=== PATIENT | female | born 1940 | race Caucasian/White ===

== ENCOUNTER → 2016-04-28 | Outpatient (CLI) | payer MEDICARE, OTHER ==
[2016-04-28 10:03] LABS: Basophils % (A) 1 %; CHCM 33.3; Eosinophils % (A) 1 %; HCT 41.7 % (34.0-46.0); HDW 2.35; Luc # (Auto) 0.12; Luc % (Auto) 3; Lymphocytes # (A) 1.4 k/uL (1.0-4.8); Lymphocytes % (A) 33 %; MCH 32.6 pg (25.0-35.0); MCHC 33.7 g/dL (31.0-37.0); MCV 96.6 fL (80.0-100.0); Mean Platelet Volume 7.2; Monocytes # (A) 0.3 k/uL (0-1.0); Monocytes % (A) 8 %; Neutrophils # (A) 2.3 k/uL (1.3-7.7); Neutrophils % (A) 55 %; RBC 4.31 m/uL (3.80-5.40); RDW 13.4 % (11.5-15.5); WBC 4.2 k/uL (3.8-10.6); WBC (Perox) 4.51
[2016-04-28 10:05] LABS: Appearance,Urine Clear (Clear); Bilirubin,Urine Negative (Negative); Glucose,Urine (UA) Negative (Negative); Ketones,Urine Negative (Negative); Leukocyte Esterase,Urine Negative (Negative); Nitrite,Urine Negative (Negative); Protein,Urine Negative (Negative); Specific Gravity,Urine 1.005 (1.001-1.035); UA Billing (MACRO vs. MICRO) CHEM; Urobilinogen,Urine <2.0 mg/dL (<2.0)
[2016-04-28 10:15] LABS: INR 1.1 (<1.1); Partial Thromboplastin Time 24.8 sec (22.0-30.0); Prothrombin Time 10.7 sec (9.0-12.0)
[2016-04-28 10:31] LABS: Anion Gap 11 mmol/L; Blood Urea Nitrogen 15 mg/dL (7-17); Calcium 9.6 mg/dL (8.4-10.2); Carbon Dioxide 25 mmol/L (22-30); Chloride 106 mmol/L (98-107); Glucose 81 mg/dL (74-99); Non-African American GFR(MDRD) >60 (>60 ml/min/1.73 sqM); Potassium 4.1 mmol/L (3.5-5.1); Sodium 142 mmol/L (137-145)
[2016-04-28 11:55] LABS: Hemoglobin A1C 5.1 % (4.2-6.1)
== END ==
LOC: LABWHC1 09:28
PROVIDERS: ATTEND Orthopaedic Surgery
DX: D61.3 Idiopathic aplastic anemia (principal); N39.0 Urinary tract infection, site not specified; E10.9 Type 1 diabetes mellitus without complications; Z51.81 Encounter for therapeutic drug level monitoring; Z79.01 Long term (current) use of anticoagulants
CPT/HCPCS: 36415; 80048; 81003; 83036; 85025; 85610; 85730; 87086

== ENCOUNTER → 2017-12-02 | Outpatient (CLI) | payer MEDICARE, OTHER ==
[2017-12-02 17:53] LABS: Basophils % (A) 1 %; Eosinophils % (A) 1 %; HCT 42.9 % (34.0-46.0); HGB 13.7 gm/dL (11.4-16.0); Lymphocytes # (A) 1.6 k/uL (1.0-4.8); Lymphocytes % (A) 28 %; MCH 30.3 pg (25.0-35.0); MCHC 31.9 g/dL (31.0-37.0); MCV 95.1 fL (80.0-100.0); Mean Platelet Volume 7.3; Monocytes # (A) 0.4 k/uL (0-1.0); Monocytes % (A) 7 %; Neutrophils # (A) 3.6 k/uL (1.3-7.7); Neutrophils % (A) 62 %; Platelet Count 250 k/uL (150-450); RBC 4.51 m/uL (3.80-5.40); RDW 13.3 % (11.5-15.5); WBC 5.8 k/uL (3.8-10.6)
== END ==
LOC: LABWHC1 16:05
PROVIDERS: ATTEND Internal Medicine Critical Care Medicine
DX: J45.909 Unspecified asthma, uncomplicated (principal)
CPT/HCPCS: 36415; 82785; 85025

== ENCOUNTER 2018-12-02 07:38 | Day surgery (SDC) | payer MEDICARE ==
[2018-12-01 09:38] VITALS: BMI 29.5
[~2018-12-02 07:38] MED LIST: LACTATED RINGERS 1,000 ML IV SCH; LIDOCAINE 1% 20 ML VIAL (10MG/ML) FOR IV START INTRADERMA PRN
[2018-12-02 08:11] VITALS: RESP 16; TEMP 98.4
[2018-12-02] MEDS ORDERED: PROPOFOL 10 MG/ML 20 ML VIAL IV ONE (09:04)
--- NOTE | 2018-12-02 09:28 | P.PCN ---
Date of Procedure: 12/02/18 Procedure(s) Performed: BRIEF HISTORY: Patient is a 78-year-old pleasant white female scheduled for an elective colonoscopy as a part of evaluation of chronic diarrhea for the last 3 weeks' duration. She was diagnosed with colon cancer in February 2015 and is status post left hemicolectomy by Dr. Rousseau. PROCEDURE PERFORMED: Colonoscopy with biopsy and tattooing with Jackie ink PREOPERATIVE DIAGNOSIS: Chronic diarrhea and history of colon cancer diagnosed in February 2015 status post left hemicolectomy. IV sedation per Anesthesia. PROCEDURE: After informed consent was obtained, the patient, was brought into the endoscopy unit. IV sedation was administered by Anesthesia under continuous monitoring. Digital rectal examination was normal. Initially the Olympus CF-160 flexible video colonoscope was then inserted in the rectum, gradually advanced into the cecum without any difficulty. Careful examination was performed as the scope was gradually being withdrawn. Ileocecal valve and the appendiceal orifice were visualized and appeared normal. Prep was excellent. Mucosa of the cecum appeared normal. The descending colon there was a ulcerated slightly raised 3 cm polypoid lesion suspicious for neoplasm and multiple biopsies were done from this area. Tattooing was performed with Jackie ink at the distal margin of the polypoid lesion. Rest of the, ascending colon, transverse colon, descending colon, sigmoid colon, and rectum appeared normal. Retroflexion was performed in the rectum and no lesions were seen. The patient tolerated the procedure well. IMPRESSION: 3 cm ulcerated slightly raised polypoid lesion in the mid ascending colon, suspicious for neoplasm status post biopsy and tattooing with Jackie ink Rest of the colon appeared normal. RECOMMENDATIONS: Findings of this examination were discussed with the patientas well as a family. She was advised to follow with the biopsy results and she'll be seen in office next week. She will be scheduled for a CT of abdomen and pelvis.
[2018-12-02 09:45] VITALS: BP 141/59; PULSE 60
== END 2018-12-02 10:42 | disposition home or self-care (01) ==
LOC: ORWHC2ENDO 07:38
PROVIDERS: ATTEND Internal Medicine Gastroenterology
DX: C18.2 Malignant neoplasm of ascending colon (principal); Z90.49 Acquired absence of other specified parts of digestive tract; I10 Essential (primary) hypertension; E78.5 Hyperlipidemia, unspecified; J45.909 Unspecified asthma, uncomplicated; H35.30 Unspecified macular degeneration; K21.9 Gastro-esophageal reflux disease without esophagitis; Z79.899 Other long term (current) drug therapy; Z79.51 Long term (current) use of inhaled steroids; Z79.83 Long term (current) use of bisphosphonates; Z88.6 Allergy status to analgesic agent; Z88.5 Allergy status to narcotic agent
CPT/HCPCS: 88305; 45380; 45381; J2704

== ENCOUNTER → 2018-12-05 | Outpatient (CLI) | payer MEDICARE ==
[2018-12-05 07:58] LABS: ALT 23 U/L (9-52); AST 27 U/L (14-36); African American GFR (CKD) >90 (>60 ml/min/1.73 sqM); Alkaline Phosphatase 53 U/L (38-126); Anion Gap 6 mmol/L; Blood Urea Nitrogen 12 mg/dL (7-17); Calcium 9.1 mg/dL (8.4-10.2); Carbon Dioxide 28 mmol/L (22-30); Chloride 108 mmol/L (98-107); Glucose 90 mg/dL (74-99); Sodium 142 mmol/L (137-145); Total Bilirubin 0.5 mg/dL (0.2-1.3); Total Protein 6.8 g/dL (6.3-8.2)
[2018-12-05 08:05] LABS: Potassium 3.5 mmol/L (3.5-5.1)
--- NOTE | 2018-12-05 10:29 | CT ---
EXAMINATION TYPE: CT abdomen pelvis w con DATE OF EXAM: 12/05/2018 COMPARISON: None INDICATION: Mass in ascending colon, history of colon cancer DLP: 1376 mGycm, Automated exposure control for dose reduction was used. CONTRAST: 100 mL of Isovue 300. Study performed with Oral Contrast TECHNIQUE: Axial images were obtained from above the diaphragm to the pubic rami in the axial plane a t 5 mm thick sections. Reconstructed images are reviewed on the computer in the coronal plane. FINDINGS: Limited CT sections are obtained the lung bases. The lung bases are clear. Small amount coronary ar ryann calcification is present. CT ABDOMEN: There is a large anterior abdominal wall hernia containing multiple loops of bowel. This includes both small bowel and colon. No dilated loops of bowel are evident to suggest obstruction. Th is is a very wide opening within the anterior upper pelvis. A second smaller hernia is into the anter ior right pelvis. Liver: Normal Spleen: Normal Pancreas: Normal Adrenal glands: The adrenal glands are normal. Gallbladder: Normal Kidneys: No masses are evident. No hydronephrosis is present. No cysts are present. Delayed images were obtained through the kidneys, which remain unremarkable. Aorta: Vascular calcification is within the aorta. Inferior vena cava: Normal. CT PELVIS: Filling defect at the level of the cecum is not excluded. Some thickening through the distal ascendin g colon near the level of hepatic flexure may also be present. The Patient's ascending colon mass is not discretely identified. Fecal debris is present as well. Ileocecal valve is within the hernia. The re is a large fecal bolus at the level of the proximal cecum. Appendix: There appears to be the appendix is Normal as visualized. Urinary bladder: Distended. Genitourinary structures: Uterus and ovaries are not identified. No suspicious masses or free fluid a re evident. Osseous structures: No suspicious lytic or sclerotic lesions. Scoliosis IMPRESSIONS: 1. Fecal debris makes identification of the patient's ascending colon cancer difficult. Proximal and distal ascending colon filling defects are present which could correspond to a potential neoplasm. N o suspicious metastatic disease or abnormal adenopathy is evident. 2. Very large anterior abdominal wall hernia containing multiple loops of colon and small bowel.
== END ==
LOC: RADCTMAIN 07:19
PROVIDERS: ATTEND Internal Medicine Gastroenterology
DX: K80.20 Calculus of gallbladder without cholecystitis without obstruction (principal); K43.9 Ventral hernia without obstruction or gangrene; R93.3 Abnormal findings on diagnostic imaging of other parts of digestive tract
CPT/HCPCS: 80053; 74177; Q9967 ×2

== ENCOUNTER → 2019-01-27 | Outpatient (CLI) | payer MEDICARE ==
[2019-01-27 11:06] LABS: African American GFR (CKD) >90 (>60 ml/min/1.73 sqM); Anion Gap 5 mmol/L; Blood Urea Nitrogen 17 mg/dL (7-17); Calcium 9.3 mg/dL (8.4-10.2); Carbon Dioxide 30 mmol/L (22-30); Chloride 106 mmol/L (98-107); Glucose 87 mg/dL (74-99); Non-African American GFR(CKD) 83 (>60 ml/min/1.73 sqM); Potassium 4.1 mmol/L (3.5-5.1); Sodium 141 mmol/L (137-145)
--- NOTE | 2019-01-27 11:56 | CT ---
EXAMINATION TYPE: CT chest w con DATE OF EXAM: 01/27/2019 COMPARISON: NONE HISTORY: Colon cancer newly diagnosed. CT DLP: 277.00 mGycm. Automated Exposure Control for Dose Reduction was Utilized. TECHNIQUE: CT scan of the thorax is performed following with IV Contrast, patient injected with 100 ml mL of Isovue 300. FINDINGS: LUNGS: Background mild underlying emphysematous change. No suspicious nodules or masses. No pleural e ffusion or pneumothorax. No acute infiltrate or consolidation. MEDIASTINUM: There are no suspicious greater than 1 cm noncalcified hilar or mediastinal lymph nodes. Prominent but calcified right hilar and subcarinal lymph nodes are seen. No pericardial effusion is seen. Heart size upper limits of normal. Mild calcified plaque of aorta. OTHER: S-shaped scoliosis. Olaz-ia-eafrgyru multilevel spurring of the spine. Surgical changes left h umeral head is noted. IMPRESSION: No suspicious pulmonary nodules or masses to suggest metastatic disease.
== END ==
LOC: RADCTMAIN 10:02
PROVIDERS: ATTEND Colon & Rectal Surgery
DX: C18.9 Malignant neoplasm of colon, unspecified (principal)
CPT/HCPCS: 80048; 71260; 36415; Q9967

== ENCOUNTER 2024-02-02 20:01 | Observation (INO) | payer MEDICARE ==
--- NOTE | 2024-02-02 21:44 | ED ---
General Adult HPI - General Chief complaint: Arrhythmia/Palpitations Stated complaint: CIPRIANO Time Seen by Provider: 02/02/24 21:24 Source: patient Mode of arrival: ambulatory Limitations: no limitations - History of Present Illness Initial comments: Dictation was produced using [employer] dictation software. please excuse any grammatical, word or spelling errors. Chief Complaint: 83-year-old female with palpitations History of Present Illness: Patient is 83-year-old female every day she checks her heart rate and pulse oximeter with the device. Since around Thanksgiving time she has noticed that her heart rate would bounce anywhere from 23-1 40. Patient has a history of A-fib takes beta-mali along with anticoagulation medications. She was checking her heart rate today and states that it she had readings in the 30s although up to 140s. She denies any symptoms. She saw one of her outpatient doctors who increase her metoprolol dose to 25 mg 3 times daily. Patient denies any chest pain. Denies any lightheadedness. She does not have a pacemaker AICD The ROS documented in this emergency department record has been reviewed and confirmed by me. Those systems with pertinent positive or negative responses have been documented in the HPI. All other systems are other negative and/or noncontributory. - Related Data Home Medications Medication Instructions Recorded Confirmed Ascorbic Acid [Vitamin C] 500 mg PO TID 03/20/15 12/02/18 Citalopram Hydrobromide 20 mg PO DAILY 03/20/15 12/02/18 [Citalopram HBr] Fluticasone Propion/Salmeterol 1 puff INHALATION BID 03/20/15 12/02/18 [Advair 500-50 Diskus] Ipratropium-Albuterol Nebulize 3 ml INHALATION Q4-6H PRN 03/20/15 12/02/18 [Duoneb 0.5 mg-3 mg/3 ml Soln] Ipratropium/Albuterol Sulfate 1 - 2 puff INHALATION QID PRN 03/20/15 12/02/18 [Combivent Respimat Inhaler] Losartan Potassium 50 mg PO DAILY 03/20/15 12/02/18 Metoprolol Tartrate 12.5 mg PO DAILY 03/20/15 12/02/18 Montelukast [Singulair] 10 mg PO HS 03/20/15 12/02/18 Omeprazole [PriLOSEC] 20 mg PO AC-BRKFST 03/20/15 12/02/18 Theophylline 12 Hour [Laureano-Dur] 400 mg PO DAILY 03/20/15 12/02/18 Vitamin E (Dl,Tocopheryl Acet) 400 unit PO Q48H 03/20/15 12/02/18 [Vitamin E] Alendronate Sodium [Fosamax] 70 mg PO TH 12/01/18 12/02/18 Azelastine HCl [Astepro] 2 spray NASAL BID 12/01/18 12/02/18 Biotin [Biotin Disolve] 5,000 mcg PO DAILY 12/01/18 12/02/18 Cholecalciferol [Vitamin D3 (25 5,000 unit PO DAILY 12/01/18 12/02/18 Mcg = 1000 Iu)] Levocetirizine Dihydrochloride 5 mg PO DAILY 12/01/18 12/02/18 [Xyzal] cycloSPORINE [Restasis] 1 applicator BOTH EYES BID 12/01/18 12/02/18 Allergies Allergy/AdvReac Type Severity Reaction Status Date / Time aspirin Allergy "BRINGS ON Verified 02/02/24 20:14 ASTHMA ATTACKS" milk Allergy "BLOCKS Verified 02/02/24 20:14 BOWEL" wheat Allergy Cough Verified 02/02/24 20:14 Review of Systems ROS Statement: Those systems with pertinent positive or pertinent negative responses have been documented in the HPI. ROS Other: All systems not noted in ROS Statement are negative. Past Medical History Past Medical History: Asthma, Cancer, COPD, Eye Disorder, GERD/Reflux, Hyperlipidemia, Hypertension Additional Past Medical History / Comment(s): ARRYTHMIA. macular degeneration rt eye SKIN CA ON BACK. colon polyp-cancer, gallstones, hernia History of Any Multi-Drug Resistant Organisms: MRSA Date of last positivie culture/infection: abdominal incision MDRO Source:: 2016 Past Surgical History: Bladder Surgery, Bowel Resection, Hysterectomy, Joint Replacement Additional Past Surgical History / Comment(s): TOTAL JESSE KNEE. LT GREAT TOE. SINUS SURG. EXC CATARACTS, LT arm surgery repair bicep. Past Anesthesia/Blood Transfusion Reactions: Motion Sickness Past Psychological History: Depression Smoking Status: Never smoker Past Alcohol Use History: Rare Past Drug Use History: None Reported - Past Family History Brother(s) Family Medical History: Cancer Mother Sister(s) Family Medical History: Cancer Sister(s) Family Medical History: Deep Vein Thrombosis (DVT) General Exam - General Exam Comments Initial Comments: PHYSICAL EXAM: General Impression: Alert and oriented x3, not in acute distress HEENT: Normocephalic atraumatic, extra-ocular movements intact, pupils equal and reactive to light bilaterally, mucous membranes moist. Cardiovascular: Tachycardic, irregular Chest: Able to complete full sentences, no retractions, no tachypnea Abdomen: abdomen soft, non-tender, non-distended, no organomegaly Musculoskeletal: Pulses present and equal in all extremities, no peripheral edema Motor: no focal deficits noted Neurological: CN II-XII grossly intact, no focal motor or sensory deficits noted Skin: Intact with no visualized rashes Psych: Normal affect and mood Limitations: no limitations Course Vital Signs 02/02/24 20:09 Temperature 98.5 F Pulse Rate 128 H Respiratory 18 Rate Blood Pressure 140/81 O2 Sat by Pulse 96 Oximetry EKG Findings - EKG Comments: EKG Findings:: My EKG interpretation: Ventricular rate 111, a flutter, QRS 84, QTc 391. No QTC prolongation, no ST or T-wave changes noted. Overall, this EKG is unremarkable Medical Decision Making - Medical Decision Making Was pt. sent in by a medical professional or institution ([facility], [facility], urgent care, hospital, or fci...) When possible be specific @ -No Did you speak to anyone other than the patient for history (EMS, parent, family, police, friend...)? What history was obtained from this source @ -No Did you review nursing and triage notes (agree or disagree)? Why? @ -I reviewed and agree with nursing and triage notes Were old charts reviewed (outside hosp., previous admission, EMS record, old EKG, old radiological studies, urgent care reports/EKG's, fci records)? Report findings @ -No old charts were reviewed Differential Diagnosis (chest pain, altered mental status, abdominal pain women, abdominal pain men, vaginal bleeding, musculoskeletal, weakness, fever, dyspnea, syncope, headache, dizziness, GI bleed, back pain, seizure, CVA, palpatations, mental health)? @ -Differential Chest Pain: Stable Angina, Unstable Angina, STEMI, NSTEMI Aortic Dissection, Pneumothorax, Musculoskeletal, Esophageal Spasm GERD, Cholecystitis, Pancreatitis, Zoster, this is not meant to be an all-inclusive list. EKG interpreted by me (3pts min.). @ -See above X-rays interpreted by me (1pt min.). @ -Chest x-ray is nonacute CT interpreted by me (1pt min.). @ -None done U/S interpreted by me (1pt. min.). @ -None done What testing was considered but not performed or refused? (CT, X-rays, U/S, labs)? Why? @ -None What meds were considered but not given or refused? Why? @ -None Was smoking cessation discussed for >3mins.? @ -No Were there social determinants of health that impacted care today? How? (Homelessness, low income, unemployed, alcoholism, drug addiction, transportation, low edu. Level, literacy, decrease access to med. care, correction, rehab)? @ -No Was there de-escalation of care discussed even if they declined (Discuss DNR or withdrawal of care, Hospice)? DNR status @ -No What co-morbidities impacted this encounter? (DM, HTN, Smoking, COPD, CAD, Cancer, CVA, ARF, Chemo, Hep., AIDS, mental health diagnosis, sleep apnea, morbid obesity)? @ -None Was patient admitted / discharged? Hospital course, mention meds given and route, prescriptions, significant lab abnormalities, going to OR and other pertinent info. @ -83-year-old female presents to the emergency department for palpitations. She also has secondary complaint of chest pain. Vital signs upon arrival shows slight A-fib with RVR. Rest of vital signs within acceptable limits. Laboratory evaluation obtained. Labs are within acceptable limits. Troponin is negative. EKG shows no signs of ischemia infarction. Patient complained of atypical chest pain typical features. Patient been aspirin will be admitted to observation with consultation to cardiology. Case discussed with hospitalist for admission Did you discuss the management of the patient with other professionals (professionals i.e. , PA, CIVIL DRAFTER, lab, RT, psych nurse, social and political studies professor, biofuels operations manager, teacher, senior grants officer, block and case maker)? Give summary @ -See above Was critical care preformed (if so, how long)? @ -No Undiagnosed new problem with uncertain prognosis? @ -No Drug Therapy requiring intensive monitoring for toxicity (Heparin, Nitro, Insulin, Cardizem)? @ -No Were any procedures done? @ -No Diagnosis/symptom? Acute, or Chronic, or Acute on Chronic? Uncomplicated (without systemic symptoms) or Complicated (systemic symptoms)? @ -Chest pain Side effects of treatment? @ -No Exacerbation, Progression, or Severe Exacerbation? @ -No Poses a threat to life or bodily function? How? (Chest pain, [place], NM, pneumonia, PE, COPD, DKA, ARF, appy, cholecystitis, CVA, Diverticulitis, Homicidal, Suicidal, threat to staff... and all critical care pts) @ -yes - Lab Data Result diagrams: 02/02/24 21:55 02/02/24 21:55 Lab Results 02/02/24 02/02/24 02/02/24 Range/Units 21:55 21:55 21:55 WBC 5.3 (3.8-10.6) k/uL RBC 4.28 (3.80-5.40) m/uL Hgb 13.5 (11.4-16.0) gm/dL Hct 41.5 (34.0-46.0) % MCV 97.0 (80.0-100.0) fL MCH 31.6 (25.0-35.0) pg MCHC 32.6 (31.0-37.0) g/dL RDW 13.4 (11.5-15.5) % Plt Count 271 (150-450) k/uL MPV 6.9 Neutrophils % 58 % Lymphocytes % 31 % Monocytes % 7 % Eosinophils % 1 % Basophils % 0 % Neutrophils # 3.1 (1.3-7.7) k/uL Lymphocytes # 1.6 (1.0-4.8) k/uL Monocytes # 0.4 (0-1.0) k/uL Eosinophils # 0.0 (0-0.7) k/uL Basophils # 0.0 (0-0.2) k/uL PT 11.4 (10.0-12.5) sec INR 1.0 (<1.2) APTT 24.2 (22.0-30.0) sec Sodium 137 (137-145) mmol/L Potassium 4.0 (3.5-5.1) mmol/L Chloride 108 H (98-107) mmol/L Carbon Dioxide 26 (22-30) mmol/L Anion Gap 3 mmol/L BUN 17 (7-17) mg/dL Creatinine 0.67 (0.52-1.04) mg/dL Est GFR (CKD-EPI)AfAm >90 (>60 ml/min/1.73 sqM) Est GFR (CKD-EPI)NonAf 82 (>60 ml/min/1.73 sqM) Glucose 86 (74-99) mg/dL Calcium 9.3 (8.4-10.2) mg/dL Magnesium 2.2 (1.6-2.3) mg/dL Total Bilirubin 0.8 (0.2-1.3) mg/dL AST 23 (14-36) U/L ALT 14 (4-34) U/L Alkaline Phosphatase 68 (38-126) U/L Troponin I (0.000-0.034) ng/mL Total Protein 6.0 L (6.3-8.2) g/dL Albumin 4.1 (3.5-5.0) g/dL 02/02/24 Range/Units 21:55 WBC (3.8-10.6) k/uL RBC (3.80-5.40) m/uL Hgb (11.4-16.0) gm/dL Hct (34.0-46.0) % MCV (80.0-100.0) fL MCH (25.0-35.0) pg MCHC (31.0-37.0) g/dL RDW (11.5-15.5) % Plt Count (150-450) k/uL MPV Neutrophils % % Lymphocytes % % Monocytes % % Eosinophils % % Basophils % % Neutrophils # (1.3-7.7) k/uL Lymphocytes # (1.0-4.8) k/uL Monocytes # (0-1.0) k/uL Eosinophils # (0-0.7) k/uL Basophils # (0-0.2) k/uL PT (10.0-12.5) sec INR (<1.2) APTT (22.0-30.0) sec Sodium (137-145) mmol/L Potassium (3.5-5.1) mmol/L Chloride (98-107) mmol/L Carbon Dioxide (22-30) mmol/L Anion Gap mmol/L BUN (7-17) mg/dL Creatinine (0.52-1.04) mg/dL Est GFR (CKD-EPI)AfAm (>60 ml/min/1.73 sqM) Est GFR (CKD-EPI)NonAf (>60 ml/min/1.73 sqM) Glucose (74-99) mg/dL Calcium (8.4-10.2) mg/dL Magnesium (1.6-2.3) mg/dL Total Bilirubin (0.2-1.3) mg/dL AST (14-36) U/L ALT (4-34) U/L Alkaline Phosphatase (38-126) U/L Troponin I <0.012 (0.000-0.034) ng/mL Total Protein (6.3-8.2) g/dL Albumin (3.5-5.0) g/dL Disposition Clinical Impression: Chest pain Disposition: ADMITTED IP TO THIS [facility] Condition: Fair Referrals: Ti Stein DO [Primary Care Provider] - 1-2 days Decision Time: 00:04
[2024-02-02] MEDS: SODIUM CHLORIDE 0.9% 1,000 ML IV STA (21:57)
--- NOTE | 2024-02-02 22:14 | XR ---
EXAMINATION TYPE: XR chest 2V DATE OF EXAM: 02/02/2024 CLINICAL HISTORY: Dysrhythmia TECHNIQUE: Frontal and lateral views of the chest are obtained. COMPARISON: Chest CT January 27, 2019 FINDINGS: There is no focal air space opacity, pleural effusion, or pneumothorax seen. There is mild cardiomegaly with atherosclerotic change in the aortic knob. Metallic anchor left humeral head is pr esent. Scoliosis is redemonstrated. IMPRESSION: Mild cardiomegaly without acute pulmonary process. [facility], , 02/02/2024 10:11 PM
[2024-02-02 22:46] LABS: Basophils % (A) 0 %; Eosinophils % (A) 1 %; HCT 41.5 % (34.0-46.0); HGB 13.5 gm/dL (11.4-16.0); Lymphocytes # (A) 1.6 k/uL (1.0-4.8); Lymphocytes % (A) 31 %; MCH 31.6 pg (25.0-35.0); MCHC 32.6 g/dL (31.0-37.0); Mean Platelet Volume 6.9; Monocytes # (A) 0.4 k/uL (0-1.0); Monocytes % (A) 7 %; Neutrophils # (A) 3.1 k/uL (1.3-7.7); Neutrophils % (A) 58 %; Platelet Count 271 k/uL (150-450); RBC 4.28 m/uL (3.80-5.40); RDW 13.4 % (11.5-15.5); WBC 5.3 k/uL (3.8-10.6)
[2024-02-02 23:06] LABS: Partial Thromboplastin Time 24.2 sec (22.0-30.0); Prothrombin Time 11.4 sec (10.0-12.5)
[2024-02-02] MEDS: ASPIRIN 81 MG PO STA (23:09)
[2024-02-02] MEDS: METOPROLOL TARTRATE 5 MG/5 ML VIAL IVP STA (23:10)
[2024-02-02 23:15] LABS: ALT 14 U/L (4-34); AST 23 U/L (14-36); African American GFR (CKD) >90 (>60 ml/min/1.73 sqM); Albumin 4.1 g/dL (3.5-5.0); Alkaline Phosphatase 68 U/L (38-126); Anion Gap 3 mmol/L; Blood Urea Nitrogen 17 mg/dL (7-17); Calcium 9.3 mg/dL (8.4-10.2); Carbon Dioxide 26 mmol/L (22-30); Chloride 108 mmol/L (98-107); Glucose 86 mg/dL (74-99); Magnesium 2.2 mg/dL (1.6-2.3); Non-African American GFR(CKD) 82 (>60 ml/min/1.73 sqM); Sodium 137 mmol/L (137-145); Total Bilirubin 0.8 mg/dL (0.2-1.3)
[2024-02-02] MEDS ORDERED: NITROGLYCERIN SL TABS 0.4 MG TAB SUBLINGUAL PRN (23:57)
[2024-02-03] MEDS: IPRATROPIUM-ALBUTEROL 3 ML NEB INHALATION PRN (00:57)
[2024-02-03] MEDS ORDERED: ACETAMINOPHEN TAB 325 MG TAB PO PRN (02:38)
--- NOTE | 2024-02-03 06:20 | P.HPIM ---
History of Present Illness H&P Date: 02/03/24 Chief Complaint: Chest pain and palpitations Patient is a 83 year old female with hypertension, asthma, GERD, atrial fibrillation presented to the ED with chest pain and palpitations. Patient reports having palpitations yesterday. She mentions having a pulse oximeter at home and she uses that regularly. She noticed a few fluctuations in her heart rate. She mentioned her heart rate would go down to 30s and then go up to 140s. She does have a history of atrial fibrillation, currently on anticoagulation at home. She denies having palpitations before. She follows up with Dr. Bennett outpatient who had her on Metoprolol 25 mg in am and 12.5 mg at bedtime. She recently saw her pulmnologist Dr. Cuevas, who she sees for Asthma/COPD. At that visit she was found to be in atrial fibrillation and her metoprolol was changed to 25 mg thrice daily. Associated with this she also experiences left sided chest pain. The pain is 8/10 severity, is dull in nature and is non-radiating. Denies an increase in her physical activity recently. She denies having similar kind of pain before. Denies history of CAD/PR/stent placement. Additionally, she mentions of being more tired recently and that has led to a decrease in her physical activity. She lives alone at home, uses a cane to ambulate and is able to manage her daily activities of living on her own. Denies fever, chills, cough, abdominal pain, nausea, vomiting, hematuria, dysuria, hematochezia, melena, headache, slurred speech, numbness, tingling. ED documentation reviewed. In the ED patient was treated with aspirin 325 mg PO, metoprolol 5 mg IVP, 0.9 normal saline bolus. Vitals on admission T 98.5 F, VT 128 bpm, RR 18, BP 140/81, O2 sat 96% on room air EKG independently interpreted as atrial fibrillation, rate 111 bpm, QTc 391 ms Chest x-ray shows mild cardiomegaly without acute pulmonary process Labs on admission show WBC 5.3, hemoglobin 13.5, INR 1.0, sodium 137, potassium 4.0, creatinine 0.67 Troponin I <0.012 Review of systems: Pertinent positives and negatives as discussed in HPI, a complete review of systems was performed and all other systems are negative. Social history: Tobacco: Never smoker Alcohol: Denies use Recreational drugs: Denies use Travel: No recent travel history Sick contacts: None Physical examination: Vital signs reviewed General: nontoxic, no distress, appears at stated age Derm: warm, dry, intact Head: atraumatic, normocephalic, symmetric Eyes: EOMI, anicteric sclera Mouth: no lip lesion, mucus membranes moist Cardiovascular: S1 S2 reg, no murmur Lungs: CTA bilateral, no rhonchi, no rales, no accessory muscle use Abdominal: soft, non-tender to palpation Extremities: No cyanosis, clubbing, or pedal edema. Neuro: Alert, Oriented, Gross neurological examination did not reveal any focal deficits. Psych: well appearing, appropriate affect Assessment/Plan: Patient is a 83 year old female with hypertension, asthma, GERD presented to the ED with chest pain and palpitations. She has been admitted for further cardiac workup. Active: #. Low risk chest pain, ACS r/o Troponin I <0.012 EKG independently interpreted as atrial fibrillation, rate 111 bpm, QTc 391 ms LISA score is 1 Continue Nitroglycerin 0.4 mg SL tabs Q5M PRN Atorvastatin 80 mg PO HS Obtain Lipid panel and A1c Continue to trend troponin Continue telemetry monitoring Cardiology consulted #. Atrial fibrillation, with rapid ventricular rate EKG independently interpreted as atrial fibrillation, rate 111 bpm, QTc 391 ms CHADSVASc score is 4 Continue home med Metoprolol 25 mg PO TID, recently increased outpatient Continue home med Eliquis 5 mg PO BID Cardiology consulted Chronic: #. Hypertension Continue home med losartan 50 mg p.o. daily #. Asthma, not in acute exacerbation Continue Advair twice daily, DuoNeb 4 times daily as needed, montelukast 10 mg p.o. at bedtime #. GERD Pantoprazole 40 mg p.o. daily #. Anxiety/Depression Continue home med citalopram 20 mg p.o. daily #. Osteoporosis Continue alendronate 70 mg p.o. F: None E: Replete as required N: Heart healthy diet A: Bedrest DVT prophylaxis: Eliquis 5 mg PO BID and SCD GI prophylaxis: Pantoprazole 40 mg p.o. daily The patient is admitted with an anticipated less than 2 midnight stay for evaluation of chest pain CODE STATUS: Full code Discussed with: Patient Anticipated discharge place: Home I have seen and evaluated the patient today. I Discussed the case with the resident and agree with the resident's findings I edited the assessment and plan as necessary as documented in the resident's note. Past Medical History Past Medical History: Asthma, Cancer, COPD, Eye Disorder, GERD/Reflux, Hyperlipidemia, Hypertension Additional Past Medical History / Comment(s): ARRYTHMIA. macular degeneration rt eye SKIN CA ON BACK. colon polyp-cancer, gallstones, hernia History of Any Multi-Drug Resistant Organisms: MRSA Date of last positivie culture/infection: abdominal incision MDRO Source:: 2015 Past Surgical History: Bladder Surgery, Bowel Resection, Hysterectomy, Joint Replacement Additional Past Surgical History / Comment(s): TOTAL JESSE KNEE. LT GREAT TOE. S INUS SURG. EXC CATARACTS, LT arm surgery repair bicep. Past Anesthesia/Blood Transfusion Reactions: Motion Sickness Past Psychological History: Depression Smoking Status: Never smoker Past Alcohol Use History: Rare Past Drug Use History: None Reported - Past Family History Brother(s) Family Medical History: Cancer Mother Sister(s) Family Medical History: Cancer Sister(s) Family Medical History: Deep Vein Thrombosis (DVT) Medications and Allergies Home Medications Medication Instructions Recorded Confirmed Type Ascorbic Acid [Vitamin C] 500 mg PO TID 03/20/15 12/02/18 History Citalopram Hydrobromide 20 mg PO DAILY 03/20/15 12/02/18 History [Citalopram HBr] Fluticasone Propion/Salmeterol 1 puff INHALATION BID 03/20/15 12/02/18 History [Advair 500-50 Diskus] Ipratropium-Albuterol Nebulize 3 ml INHALATION Q4-6H PRN 03/20/15 12/02/18 History [Duoneb 0.5 mg-3 mg/3 ml Soln] Ipratropium/Albuterol Sulfate 1 - 2 puff INHALATION QID PRN 03/20/15 12/02/18 History [Combivent Respimat Inhaler] Losartan Potassium 50 mg PO DAILY 03/20/15 12/02/18 History Metoprolol Tartrate 12.5 mg PO DAILY 03/20/15 12/02/18 History Montelukast [Singulair] 10 mg PO HS 03/20/15 12/02/18 History Omeprazole [PriLOSEC] 20 mg PO AC-BRKFST 03/20/15 12/02/18 History Theophylline 12 Hour [Laureano-Dur] 400 mg PO DAILY 03/20/15 12/02/18 History Vitamin E (Dl,Tocopheryl Acet) 400 unit PO Q48H 03/20/15 12/02/18 History [Vitamin E] Alendronate Sodium [Fosamax] 70 mg PO TH 12/01/18 12/02/18 History Azelastine HCl [Astepro] 2 spray NASAL BID 12/01/18 12/02/18 History Biotin [Biotin Disolve] 5,000 mcg PO DAILY 12/01/18 12/02/18 History Cholecalciferol [Vitamin D3 (25 5,000 unit PO DAILY 12/01/18 12/02/18 History Mcg = 1000 Iu)] Levocetirizine Dihydrochloride 5 mg PO DAILY 12/01/18 12/02/18 History [Xyzal] cycloSPORINE [Restasis] 1 applicator BOTH EYES BID 12/01/18 12/02/18 History Allergies Allergy/AdvReac Type Severity Reaction Status Date / Time aspirin Allergy "BRINGS ON Verified 02/02/24 20:14 ASTHMA ATTACKS" milk Allergy "BLOCKS Verified 02/02/24 20:14 BOWEL" wheat Allergy Cough Verified 02/02/24 20:14 Physical Exam Vitals: Vital Signs Temp Pulse Resp BP Pulse Ox 02/02/24 20:09 98.5 F 128 H 18 140/81 96 Intake and Output 02/02/24 02/02/24 02/03/24 14:59 22:59 06:59 Other: Weight 79.832 kg Results CBC & Chem 7: 02/02/24 21:55 02/02/24 21:55 Labs: Abnormal Lab Results - Last 24 Hours (Table) 02/02/24 Range/Units 21:55 Chloride 108 H (98-107) mmol/L Total Protein 6.0 L (6.3-8.2) g/dL
[2024-02-03] MEDS: SYMBICORT 160-4.5 MCG INHALER INHALATION SCH (07:42)
[2024-02-03] MEDS ORDERED: THEOPHYLLINE 24 HOUR 400 MG CAP.ER.24H PO SCH (09:00)
[2024-02-03] MEDS ORDERED: ASPIRIN 325 MG TAB PO SCH (09:00)
[2024-02-03] MEDS ORDERED: METOPROLOL TARTRATE 12.5 MG TAB PO SCH (09:00)
[2024-02-03 09:02] LABS: Chol/HDL Ratio 3.19 Ratio; LDL Cholesterol,Calculated 97.2 mg/dL (0.0-131.0)
[2024-02-03] MEDS: LOSARTAN 50 MG TAB PO SCH (10:09)
[2024-02-03] MEDS: APIXABAN 5 MG TAB PO SCH (10:09)
[2024-02-03] MEDS: PANTOPRAZOLE 40 MG TABLET PO SCH (10:09)
[2024-02-03] MEDS: NON FORMULARY DRUG (Alendronate Sodium [Fosamax] 70 MG Tablet) PO SCH (10:10)
[2024-02-03] MEDS: CITALOPRAM HYDROBROMIDE 20 MG TAB PO SCH (10:10)
[2024-02-03] MEDS: METOPROLOL TARTRATE 25 MG TAB PO STA (10:10)
[2024-02-03] MEDS: METOPROLOL TARTRATE 25 MG TAB PO SCH (10:28)
--- NOTE | 2024-02-03 13:55 | P.CRDCN ---
History of Present Illness Consult date: 02/03/24 Consult reason: chest pain History of present illness: This is an 83-year-old female patient of Dr. Bennett with past medical history of paroxysmal atrial fibrillation on Eliquis, hypertension, hyperlipidemia, bronchial asthma under the care of Dr. Hawkins. We have been asked to evaluate the patient for chest pain. Patient states that she was resting in a chair when she looked at her pulse ox on her finger and it said that her heart rate was 33 and then it was 23. She said she may have had some slight pain in left side of her chest. She does have some tenderness to the chest wall. Her heart rate is now running in the 110s. Patient presented with atrial fibrillation of 228 bpm. Now heart rate is around 110. -EKG: Atrial fibrillation at 111 bpm -Chest x-ray: Mild cardiomegaly without acute process -Laboratory studies: CBC within normal limits. Sodium 137, potassium 4, BUN 17 creatinine 0.67. Troponin negative x 3. Triglycerides 132, cholesterol 180, LDL 97, HDL 56. -Home cardiac medications: Eliquis 5 mg twice daily, Lipitor 10 mg at bedtime, losartan 50 mg daily, magnesium 800 mg at bedtime, metoprolol tartrate 25 mg in the morning and 12.5 mg in the evening. -Cardiac catheterization 2001 revealed no obstructive CAD -Echocardiogram performed 02/02/2023 revealed EF 55% with mild MR and mild TR, RVSP 30. -Lexiscan Cardiolite stress test performed 02/01/2023 revealed EF of 60%, fixed defect of the anterior wall secondary to soft tissue attenuation. No reversible ischemia. Review Of Systems: At the time of my exam: CONSTITUTIONAL: Denies fever or chills. HEENT: Denies blurred vision, vision changes, or eye pain. Denies hemoptysis CARDIOVASCULAR: Denies chest pain. Denies orthopnea. Denies PND. Denies palpita tions RESPIRATORY: Denies shortness of breath. GASTROINTESTINAL: Denies abdominal pain. Denies nausea or vomiting. HEMATOLOGIC: Denies bleeding disorders. GENITOURINARY: Denies any blood in urine. SKIN: Denies puritis. Denies rash. Physical examination: Gen: This is an 83-year-old female in no acute distress VS: reviewed HEENT: Head is atraumatic, normocephalic. Pupils equal, round. Sclerae is anicteric. NECK: Supple. No JVD. LUNGS: Clear to auscultation. No wheezes or rhonchi. No intercostal retractions. HEART: Irregular rate and rhythm. Systolic ejection murmur. + Chest wall tenderness. Tachycardic ABDOMEN: Soft No tenderness. EXTREMITIES: No pedal edema. No calf tenderness. NEUROLOGICAL: Patient is awake, alert and oriented x3. Assessment: Paroxysmal atrial fibrillation with RVR Chest pain most likely secondary to muscular skeletal pain, tender with palpation Hypertension Dyslipidemia Bronchial asthma Plan: Resume patient's home cardiac medications Increase metoprolol to 50 mg 3 times daily Discontinue aspirin Continue telemetry monitoring Further recommendations to follow based upon clinical course Thank you kindly for this consultation. Nurse practitioner note has been reviewed, I agree with documented findings and plan of care. Patient was seen and examined. Past Medical History Past Medical History: Asthma, Cancer, COPD, Eye Disorder, GERD/Reflux, Hyperlipidemia, Hypertension Additional Past Medical History / Comment(s): ARRYTHMIA. macular degeneration rt eye SKIN CA ON BACK. colon polyp-cancer, gallstones, hernia History of Any Multi-Drug Resistant Organisms: MRSA Date of last positivie culture/infection: abdominal incision MDRO Source:: 2015 Past Surgical History: Bladder Surgery, Bowel Resection, Hysterectomy, Joint Replacement Additional Past Surgical History / Comment(s): TOTAL JESSE KNEE. LT GREAT TOE. SINUS SURG. EXC CATARACTS, LT arm surgery repair bicep. Past Anesthesia/Blood Transfusion Reactions: Motion Sickness Past Psychological History: Depression Smoking Status: Never smoker Past Alcohol Use History: Rare Past Drug Use History: None Reported - Past Family History Brother(s) Family Medical History: Cancer Mother Sister(s) Family Medical History: Cancer Sister(s) Family Medical History: Deep Vein Thrombosis (DVT) Medications and Allergies Home Medications Medication Instructions Recorded Confirmed Type Citalopram Hydrobromide 20 mg PO DAILY 03/20/15 02/03/24 History [Citalopram HBr] Ipratropium-Albuterol Nebulize 3 ml INHALATION RT-QID PRN 03/20/15 02/03/24 History [Duoneb 0.5 mg-3 mg/3 ml Soln] Ipratropium/Albuterol Sulfate 1 puff INHALATION RT-QID PRN 03/20/15 02/03/24 History [Combivent Respimat Inhaler] Losartan Potassium 50 mg PO DAILY 03/20/15 02/03/24 History Metoprolol Tartrate 12.5 mg PO HS 03/20/15 02/03/24 History Montelukast [Singulair] 10 mg PO HS 03/20/15 02/03/24 History Omeprazole [PriLOSEC] 20 mg PO DAILY PRN 03/20/15 02/03/24 History Azelastine HCl [Astepro] 2 spray NASAL DAILY 12/01/18 02/03/24 History Biotin [Biotin Disolve] 5,000 mcg PO DAILY 12/01/18 02/03/24 History Levocetirizine Dihydrochloride 5 mg PO DAILY 12/01/18 02/03/24 History [Xyzal] Apixaban [Eliquis] 5 mg PO BID 02/03/24 02/03/24 History Ascorbic Acid [Vitamin C] 1,000 mg PO DAILY 02/03/24 02/03/24 History Atorvastatin [Lipitor] 10 mg PO HS 02/03/24 02/03/24 History Cholecalciferol [Vitamin D3 (125 125 mcg PO DAILY 02/03/24 02/03/24 History Mcg = 5000 Iu)] Cyanocobalamin (Vitamin B-12) 1,000 mcg PO DAILY 02/03/24 02/03/24 History [Vitamin B-12] Fluticasone/Umeclidin/Vilanter 1 puff INHALATION RT-DAILY 02/03/24 02/03/24 History [Trelegy Ellipta 100-62.5-25] Magnesium Oxide [Mag-Ox] 800 mg PO HS 02/03/24 02/03/24 History Metoprolol Tartrate 25 mg PO DAILY 02/03/24 02/03/24 History Valier-3/Dha/Epa/Fish Oil [Fish Oil 1 cap PO DAILY 02/03/24 02/03/24 History 1,000 mg Softgel] Vitamin B Complex 1 cap PO DAILY 02/03/24 02/03/24 History Zinc Gluconate [Zinc] 50 mg PO BID 02/03/24 02/03/24 History cycloSPORINE 0.05% OPHTH SOLN 1 applicator BOTH EYES BID 02/03/24 02/03/24 History [Restasis] Allergies Allergy/AdvReac Type Severity Reaction Status Date / Time aspirin Allergy "BRINGS ON Verified 02/03/24 09:08 ASTHMA ATTACKS" milk Allergy "BLOCKS Verified 02/03/24 09:08 BOWEL" wheat Allergy Cough Verified 02/03/24 09:08 Physical Exam Vitals: Vital Signs Temp Pulse Pulse Resp BP BP Pulse Ox 02/03/24 08:02 97.6 F 61 16 141/77 96 02/03/24 07:28 98 F 86 16 119/72 96 02/03/24 06:00 98 24 122/66 95 02/03/24 03:30 102 H 20 122/80 97 02/03/24 02:00 121 H 18 119/86 96 02/03/24 01:30 110 H 15 135/67 95 02/03/24 01:05 112 H 20 02/03/24 01:00 108 H 16 137/87 100 02/03/24 00:59 115 H 18 02/03/24 00:00 98 22 125/89 96 02/02/24 23:30 102 H 13 143/108 96 02/02/24 23:00 120 H 20 136/103 94 L 02/02/24 22:30 118 H 17 126/108 95 02/02/24 20:09 98.5 F 128 H 18 140/81 96 Intake and Output 02/02/24 02/03/24 02/03/24 22:59 06:59 14:59 Other: Weight 79.832 kg Results 02/02/24 21:55 02/02/24 21:55 Cardiac Enzymes 02/02/24 02/02/24 02/03/24 Range/Units 21:55 21:55 00:54 AST 23 (14-36) U/L Troponin I <0.012 <0.012 (0.000-0.034) ng/mL 02/03/24 Range/Units 02:45 AST (14-36) U/L Troponin I <0.012 (0.000-0.034) ng/mL Coagulation 02/02/24 Range/Units 21:55 PT 11.4 (10.0-12.5) sec APTT 24.2 (22.0-30.0) sec Lipids 02/03/24 Range/Units 02:45 Triglycerides 132.00 (0.00-149.00) mg/dL Cholesterol 180.00 (0.00-200.00) mg/dL HDL Cholesterol 56.40 (40.00-60.00) mg/dL Cholesterol/HDL Ratio 3.19 Ratio CBC 02/02/24 Range/Units 21:55 WBC 5.3 (3.8-10.6) k/uL RBC 4.28 (3.80-5.40) m/uL Hgb 13.5 (11.4-16.0) gm/dL Hct 41.5 (34.0-46.0) % Plt Count 271 (150-450) k/uL Comprehensive Metabolic Panel 02/02/24 Range/Units 21:55 Sodium 137 (137-145) mmol/L Potassium 4.0 (3.5-5.1) mmol/L Chloride 108 H (98-107) mmol/L Carbon Dioxide 26 (22-30) mmol/L BUN 17 (7-17) mg/dL Creatinine 0.67 (0.52-1.04) mg/dL Glucose 86 (74-99) mg/dL Calcium 9.3 (8.4-10.2) mg/dL AST 23 (14-36) U/L ALT 14 (4-34) U/L Alkaline Phosphatase 68 (38-126) U/L Total Protein 6.0 L (6.3-8.2) g/dL Albumin 4.1 (3.5-5.0) g/dL Current Medications Generic Name Dose Route Start Last Admin Trade Name Freq PRN Reason Stop Dose Admin Acetaminophen 650 mg 02/03/24 02:38 Acetaminophen Tab 325 Mg Tab PO Q6HR PRN Fever and/ or Pain Albuterol/Ipratropium 3 ml 02/03/24 00:26 02/03/24 00:57 Ipratropium-Albuterol 3 Ml Neb INHALATION 3 ml RT-QID PRN Administration Dyspnea Apixaban 5 mg 02/03/24 09:00 Apixaban 5 Mg Tab PO BID [facility] Protocol Atorvastatin Calcium 80 mg 02/03/24 21:00 Atorvastatin 80 Mg Tab PO HS [facility] Budesonide/Formoterol Fumarate 2 puff 02/03/24 08:00 02/03/24 07:42 Symbicort 160-4.5 Mcg Inhaler INHALATION 2 puff RT-BID AB[facility]IO Administration Citalopram Hydrobromide 20 mg 02/03/24 09:00 Citalopram Hydrobromide 20 Mg Tab PO DAILY [facility] Losartan Potassium 50 mg 02/03/24 09:00 Losartan 50 Mg Tab PO DAILY [facility] Metoprolol Tartrate 25 mg 02/03/24 09:00 Metoprolol Tartrate 25 Mg Tab PO TID [facility] Montelukast Sodium 10 mg 02/03/24 21:00 Montelukast 10 Mg Tab PO HS [facility] Nitroglycerin 0.4 mg 02/02/24 23:57 Nitroglycerin Sl Tabs 0.4 Mg Tab SUBLINGUAL Q5M PRN Chest Pain Non-Formulary Medication 70 mg 02/03/24 09:00 Alendronate Sodium [Fosamax] PO TH [facility]IO Pantoprazole Sodium 40 mg 02/03/24 07:30 Pantoprazole 40 Mg Tablet PO AC-BRKFST [facility] Intake and Output 02/02/24 02/03/24 02/03/24 22:59 06:59 14:59 Other: Weight 79.832 kg 02/02/24 21:55 02/02/24 21:55
[2024-02-03] MEDS: METOPROLOL TARTRATE 50 MG TAB PO SCH (15:30)
[2024-02-03] MEDS: ATORVASTATIN 80 MG TAB PO SCH (20:21)
[2024-02-03] MEDS: MONTELUKAST 10 MG TAB PO SCH (20:21)
--- NOTE | 2024-02-04 09:07 | P.PN ---
Subjective Progress Note Date: 02/04/24 Consult reason: chest pain History of present illness: This is an 83-year-old female patient of Dr. Bennett with past medical history of paroxysmal atrial fibrillation on Eliquis, hypertension, hyperlipidemia, bronchial asthma under the care of Dr. Hawkins. We have been asked to evaluate the patient for chest pain. Patient states that she was resting in a chair when she looked at her pulse ox on her finger and it said that her heart rate was 33 and then it was 23. She said she may have had some slight pain in left side of her chest. She does have some tenderness to the chest wall. Her heart rate is now running in the 110s. Patient presented with atrial fibrillation of 228 bpm. Now heart rate is around 110. -EKG: Atrial fibrillation at 111 bpm -Chest x-ray: Mild cardiomegaly without acute process -Laboratory studies: CBC within normal limits. Sodium 137, potassium 4, BUN 17 creatinine 0.67. Troponin negative x 3. Triglycerides 132, cholesterol 180, LDL 97, HDL 56. -Home cardiac medications: Eliquis 5 mg twice daily, Lipitor 10 mg at bedtime, losartan 50 mg daily, magnesium 800 mg at bedtime, metoprolol tartrate 25 mg in the morning and 12.5 mg in the evening. -Cardiac catheterization 2001 revealed no obstructive CAD -Echocardiogram performed 02/02/2023 revealed EF 55% with mild MR and mild TR, RVSP 30. -Lexiscan Cardiolite stress test performed 02/01/2023 revealed EF of 60%, fixed defect of the anterior wall secondary to soft tissue attenuation. No reversible ischemia. 02/04/2024 Patient seen and examined. Patient remains in atrial fibrillation but heart rate is controlled. Yesterday we increased metoprolol to 50 mg 3 times daily. Heart rate is running in the 70s, blood pressure 138/78, pulse ox 97% on room air. Physical examination: Gen: This is an 83-year-old female in no acute distress VS: reviewed HEENT: Head is atraumatic, normocephalic. Pupils equal, round. Sclerae is anicteric. NECK: Supple. No JVD. LUNGS: Clear to auscultation. No wheezes or rhonchi. No intercostal retractions. HEART: Irregular rate and rhythm. Systolic ejection murmur. + Chest wall tenderness. Tachycardic ABDOMEN: Soft No tenderness. EXTREMITIES: No pedal edema. No calf tenderness. NEUROLOGICAL: Patient is awake, alert and oriented x3. Assessment: Paroxysmal atrial fibrillation with RVR, currently rate controlled Chest pain most likely secondary to muscular skeletal pain, tender with palpation Hypertension Dyslipidemia Bronchial asthma Plan: Continue home cardiac medications Continue metoprolol 50 mg 3 times daily Patient is cleared for discharge from cardiology on current medications and may follow-up in the office with Dr. LAWRENCE Bennett in 2 weeks. Nurse practitioner note has been reviewed, I agree with documented findings and plan of care. Patient was seen and examined. Objective - Vital Signs Vital signs: Vital Signs Temp 97.5 F L 02/04/24 07:00 Pulse 70 02/04/24 07:38 Resp 17 02/04/24 07:00 BP 138/78 02/04/24 07:00 Pulse Ox 97 02/04/24 07:00 FiO2 Intake & Output 02/03/24 02/04/24 02/04/24 18:59 06:59 18:59 Intake Total 240 Balance 240 Weight 79.832 kg Intake: Oral 240 Other: Voiding Method Toilet Toilet # Voids 3 3 # Bowel Movements 0 1 - Labs CBC & Chem 7: 02/02/24 21:55 02/02/24 21:55
[2024-02-04] MEDS: DOXYCYCLINE 100 MG CAP PO SCH (11:53)
[2024-02-04 14:39] VITALS: BP 117/74; RESP 16; TEMP 98.5
--- NOTE | 2024-02-04 16:59 | P.CNPUL ---
History of Present Illness Consult date: 02/04/24 Requesting physician: Zeeshan Bills Reason for consult: dyspnea, chest pain Chief complaint: Chest pain, palpitations History of present illness: This is an 83-year-old female patient with a known history of mild intermittent chronic bronchial asthma, atrial fibrillation coagulated with Eliquis, hyperlipidemia, hypertension, macular degeneration, non-smoker. Presented here to the emergency room on February 02, 2024 with concerns regarding her heart rate as she has a pulse oximeter with readings and it was anywhere from the 40s to 149. She saw a physician previously who had increased her metoprolol to 25 mg 3 times daily. She was also having complaints of cough and congestion. Were consulted today February 04, 2024. She is seen on a regular medical floor. She is currently sitting up in bed. She is maintaining good O2 saturations in the 90s on room air. She has been placed on DuoNeb and elations, Symbicort, doxycycline. X-ray revealed mild cardiomegaly without acute pulmonary process. White count 5.3. Hemoglobin 13.5. Platelets 271. Sodium 137. Potassium 4.0. Bicarb 26. BUN 17. Creatinine 0.67. Troponins were negative x 3. Review of Systems REVIEW OF SYSTEMS: CONSTITUTIONAL: Denies any recent significant weight loss or weight gain. EYES: Denies change in vision. EARS, NOSE, MOUTH, THROAT: Denies headaches, denies sore throat. CARDIOVASCULAR: Positive for chest pain, palpitations no syncopal episodes. RESPIRATORY: Denies shortness of breath, cough, congestion or hemoptysis. GASTROINTESTINAL: Denies change in appetite, denies abdominal pain GENITOURINARY: Denies hematuria, denies infections. MUSKULOSKELETAL: Denies pain, denies swelling. INTEGUMENTARY: Denies rash, denies eczema. NEUROLOGICAL: Denies recent memory loss, no recent seizure activity. PSYCHIATRIC: Denies anxiety, denies depression. HEMATOLOGIC/LYMPHATIC: Denies anemia, denies enlarged lymph nodes. Past Medical History Past Medical History: Asthma, Cancer, COPD, Eye Disorder, GERD/Reflux, Hyperlipidemia, Hypertension Additional Past Medical History / Comment(s): ARRYTHMIA. macular degeneration rt eye SKIN CA ON BACK. colon polyp-cancer, gallstones, hernia History of Any Multi-Drug Resistant Organisms: MRSA Date of last positivie culture/infection: abdominal incision MDRO Source:: 2016 Past Surgical History: Bladder Surgery, Bowel Resection, Hysterectomy, Joint Replacement Additional Past Surgical History / Comment(s): TOTAL JESSE KNEE. LT GREAT TOE. SINUS SURG. EXC CATARACTS, LT arm surgery repair bicep. Past Anesthesia/Blood Transfusion Reactions: Motion Sickness Past Psychological History: Depression Smoking Status: Never smoker Past Alcohol Use History: Rare Past Drug Use History: None Reported - Past Family History Brother(s) Family Medical History: Cancer Mother Sister(s) Family Medical History: Cancer Sister(s) Family Medical History: Deep Vein Thrombosis (DVT) Medications and Allergies Home Medications Medication Instructions Recorded Confirmed Type Citalopram Hydrobromide 20 mg PO DAILY 03/20/15 02/03/24 History [Citalopram HBr] Ipratropium-Albuterol Nebulize 3 ml INHALATION RT-QID PRN 03/20/15 02/03/24 History [Duoneb 0.5 mg-3 mg/3 ml Soln] Ipratropium/Albuterol Sulfate 1 puff INHALATION RT-QID PRN 03/20/15 02/03/24 History [Combivent Respimat Inhaler] Losartan Potassium 50 mg PO DAILY 03/20/15 02/03/24 History Metoprolol Tartrate 12.5 mg PO HS 03/20/15 02/03/24 History Montelukast [Singulair] 10 mg PO HS 03/20/15 02/03/24 History Omeprazole [PriLOSEC] 20 mg PO DAILY PRN 03/20/15 02/03/24 History Azelastine HCl [Astepro] 2 spray NASAL DAILY 12/01/18 02/03/24 History Biotin [Biotin Disolve] 5,000 mcg PO DAILY 12/01/18 02/03/24 History Levocetirizine Dihydrochloride 5 mg PO DAILY 12/01/18 02/03/24 History [Xyzal] Apixaban [Eliquis] 5 mg PO BID 02/03/24 02/03/24 History Ascorbic Acid [Vitamin C] 1,000 mg PO DAILY 02/03/24 02/03/24 History Atorvastatin [Lipitor] 10 mg PO HS 02/03/24 02/03/24 History Cholecalciferol [Vitamin D3 (125 125 mcg PO DAILY 02/03/24 02/03/24 History Mcg = 5000 Iu)] Cyanocobalamin (Vitamin B-12) 1,000 mcg PO DAILY 02/03/24 02/03/24 History [Vitamin B-12] Fluticasone/Umeclidin/Vilanter 1 puff INHALATION RT-DAILY 02/03/24 02/03/24 Hi story [Trelegy Ellipta 100-62.5-25] Magnesium Oxide [Mag-Ox] 800 mg PO HS 02/03/24 02/03/24 History Metoprolol Tartrate 25 mg PO DAILY 02/03/24 02/03/24 History [place]-3/Dha/Epa/Fish Oil [Fish Oil 1 cap PO DAILY 02/03/24 02/03/24 History 1,000 mg Softgel] Vitamin B Complex 1 cap PO DAILY 02/03/24 02/03/24 History Zinc Gluconate [Zinc] 50 mg PO BID 02/03/24 02/03/24 History cycloSPORINE 0.05% OPHTH SOLN 1 applicator BOTH EYES BID 02/03/24 02/03/24 History [Restasis] Allergies Allergy/AdvReac Type Severity Reaction Status Date / Time aspirin Allergy "BRINGS ON Verified 02/03/24 09:08 ASTHMA ATTACKS" milk Allergy "BLOCKS Verified 02/03/24 09:08 BOWEL" wheat Allergy Cough Verified 02/03/24 09:08 Physical Exam Vitals: Vital Signs Temp Pulse Pulse Pulse Resp BP Pulse Ox 02/04/24 14:00 98.5 F 66 16 117/74 94 L 02/04/24 08:00 90 19 02/04/24 07:56 70 02/04/24 07:38 70 02/04/24 07:00 97.5 F L 63 17 138/78 97 02/04/24 02:00 73 02/04/24 01:20 97.7 F 77 18 125/80 98 02/03/24 20:37 115 H 02/03/24 20:25 112 H 02/03/24 20:00 87 02/03/24 18:47 98.6 F 78 16 132/78 95 Intake and Output 02/04/24 02/04/24 02/04/24 06:59 14:59 22:59 Intake Total 240 Balance 240 Intake: Oral 240 Other: Voiding Method Toilet # Voids 3 3 # Bowel Movements 0 GENERAL EXAM: Alert, 83-year-old female, on room air, comfortable in no apparent distress. HEAD: Normocephalic. EYES: Normal reaction of pupils, equal size. NOSE: Clear with pink turbinates. THROAT: No erythema or exudates. NECK: No masses, no JVD. CHEST: No chest wall deformity. LUNGS: Equal air entry with no crackles, wheeze, rhonchi or dullness. CVS: S1 and S2 normal with no audible murmur, regular rhythm. ABDOMEN: No hepatosplenomegaly, normal bowel sounds, no guarding or rigidity. SPINE: No scoliosis or deformity SKIN: No rashes CENTRAL NERVOUS SYSTEM: No focal deficits, tone is normal in all 4 extremities. EXTREMITIES: There is no peripheral edema. No clubbing, no cyanosis. Peripheral pulses are intact. Results - Laboratory Findings CBC and BMP: 02/02/24 21:55 02/02/24 21:55 PT/INR, D-dimer PT 11.4 sec (10.0-12.5) 02/02/24 21:55 INR 1.0 (<1.2) 02/02/24 21:55 Abnormal lab findings: Abnormal Labs 02/02/24 21:55 Chloride 108 H Total Protein 6.0 L - Diagnostic Findings Chest x-ray: image reviewed Assessment and Plan Assessment: Chest pain and palpitations in a patient with a known history of atrial fibrillation, acute coronary syndrome ruled out Atrial fibrillation, anticoagulated with Eliquis History of mild intermittent chronic bronchial asthma Hyperlipidemia Hypertension Lifelong non-smoker Plan: The patient was seen and evaluated Chest x-ray, labs and medications reviewed Continue DuoNeb inhalations, Symbicort Continue doxycycline for now Check a procalcitonin Stable and on room air Most likely home in the a.m. We will continue to follow and make further recommendations based on her clinical status I have personally seen and examined the patient, performed the documentation and the assessment and plan as written. Number of minutes spent on the visit: 20 Dictation was produced using [employer] dictation software. Please excuse any grammatical, word or spelling errors..
[2024-02-04 17:23] VITALS: PULSE 101
--- NOTE | 2024-02-04 17:26 | P.DS ---
Providers Date of admission: 02/02/24 23:57 Attending physician: Zeeshan Bills MD Consults: 02/02/24 23:57 Consult Physician Urgent Consulting Provider: Jw Murcia Consult Reason/Comments: chest pain Do you want consulting provider notified?: Yes 02/04/24 10:50 Consult Physician Urgent Consulting Provider: James Jane Consult Reason/Comments: Bronchitis Do you want consulting provider notified?: Yes Primary care physician: Ti Stein Hospital Course: Discharge Diagnosis: A-fib with RVR Chest pain secondary to above Hypertension Asthma exacerbation GERD Anxiety and depression Osteoporosis Hospital Course: Patient is an 83-year-old female with a past medical history of hypertension, asthma, GERD, atrial fibrillation who presented to the ED with chest pain and palpitations. Patient was found to be in A-fib with RVR. Patient was admitted to medicine service. Cardiology increased patient's metoprolol to 50 mg 3 times daily. Patient after admission was also found to have asthma exacerbation. Patient was started on doxycycline. Patient refused to take oral steroids. She states that the steroids because palpitations. Patient was also seen by pulmonology. Discussed with pulmonology at time of discharge who cleared the patient. Patient deemed stable for discharge. Patient seen and examined at bedside.[] Vital signs reviewed and stable. General examination - Alert and Oriented 3 in NAD Heart - + S1S2 no murmurs Lungs -mild bilateral wheezing Abdomen soft NT ND +ve BS Extremities - No edema [employer] - Moving all 4 extremities spontaneously Psych - Calm and cooperative A total of [33] minutes of time were spent preparing this complex discharge summary . Patient discharged on [02/04/2024] Patient Condition at Discharge: Fair Plan - Discharge Summary Discharge Rx Participant: No New Discharge Prescriptions: New Doxycycline [Vibramycin] 100 mg PO BID 4 Days #8 cap Metoprolol Tartrate [Lopressor] 50 mg PO TID 30 Days #90 tab Continue Ipratropium/Albuterol Sulfate [Combivent Respimat Inhaler] 1 puff INHALATION RT-QID PRN PRN Reason: Dyspnea Ipratropium-Albuterol Nebulize [Duoneb 0.5 mg-3 mg/3 ml Soln] 3 ml INHALATION RT-QID PRN PRN Reason: Shortness Of Breath Montelukast [Singulair] 10 mg PO HS Omeprazole [PriLOSEC] 20 mg PO DAILY PRN PRN Reason: Gi Upset Citalopram Hydrobromide [Citalopram HBr] 20 mg PO DAILY Losartan Potassium 50 mg PO DAILY Azelastine HCl [Astepro] 2 spray NASAL DAILY Levocetirizine Dihydrochloride [Xyzal] 5 mg PO DAILY Biotin [Biotin Disolve] 5,000 mcg PO DAILY Vitamin B Complex 1 cap PO DAILY Fluticasone/Umeclidin/Vilanter [Trelegy Ellipta 100-62.5-25] 1 puff INHALATION RT-DAILY Cholecalciferol [Vitamin D3 (125 Mcg = 5000 Iu)] 125 mcg PO DAILY Ascorbic Acid [Vitamin C] 1,000 mg PO DAILY Apixaban [Eliquis] 5 mg PO BID Atorvastatin [Lipitor] 10 mg PO HS Cyanocobalamin (Vitamin B-12) [Vitamin B-12] 1,000 mcg PO DAILY [place]-3/Dha/Epa/Fish Oil [Fish Oil 1,000 mg Softgel] 1 cap PO DAILY cycloSPORINE 0.05% OPHTH SOLN [Restasis] 1 applicator BOTH EYES BID Zinc Gluconate [Zinc] 50 mg PO BID Magnesium Oxide [Mag-Ox] 800 mg PO HS Discontinued Metoprolol Tartrate 12.5 mg PO HS Metoprolol Tartrate 25 mg PO DAILY Discharge Medication List Citalopram Hydrobromide [Citalopram HBr] 20 mg PO DAILY 03/20/15 [History] Ipratropium-Albuterol Nebulize [Duoneb 0.5 mg-3 mg/3 ml Soln] 3 ml INHALATION RT-QID PRN 03/20/15 [History] Ipratropium/Albuterol Sulfate [Combivent Respimat Inhaler] 1 puff INHALATION RT- QID PRN 03/20/15 [History] Losartan Potassium 50 mg PO DAILY 03/20/15 [History] Montelukast [Singulair] 10 mg PO HS 03/20/15 [History] Omeprazole [PriLOSEC] 20 mg PO DAILY PRN 03/20/15 [History] Azelastine HCl [Astepro] 2 spray NASAL DAILY 12/01/18 [History] Biotin [Biotin Disolve] 5,000 mcg PO DAILY 12/01/18 [History] Levocetirizine Dihydrochloride [Xyzal] 5 mg PO DAILY 12/01/18 [History] Apixaban [Eliquis] 5 mg PO BID 02/03/24 [History] Ascorbic Acid [Vitamin C] 1,000 mg PO DAILY 02/03/24 [History] Atorvastatin [Lipitor] 10 mg PO HS 02/03/24 [History] Cholecalciferol [Vitamin D3 (125 Mcg = 5000 Iu)] 125 mcg PO DAILY 02/03/24 [History] Cyanocobalamin (Vitamin B-12) [Vitamin B-12] 1,000 mcg PO DAILY 02/03/24 [History] Fluticasone/Umeclidin/Vilanter [Trelegy Ellipta 100-62.5-25] 1 puff INHALATION RT-DAILY 02/03/24 [History] Magnesium Oxide [Mag-Ox] 800 mg PO HS 02/03/24 [History] [place]-3/Dha/Epa/Fish Oil [Fish Oil 1,000 mg Softgel] 1 cap PO DAILY 02/03/24 [History] Vitamin B Complex 1 cap PO DAILY 02/03/24 [History] Zinc Gluconate [Zinc] 50 mg PO BID 02/03/24 [History] cycloSPORINE 0.05% OPHTH SOLN [Restasis] 1 applicator BOTH EYES BID 02/03/24 [History] Doxycycline [Vibramycin] 100 mg PO BID 4 Days #8 cap 02/04/24 [Rx] Metoprolol Tartrate [Lopressor] 50 mg PO TID 30 Days #90 tab 02/04/24 [Rx] Follow up Appointment(s)/Referral(s): Erik Bennett MD [STAFF PHYSICIAN] - 2 Weeks Ti Stein DO [Primary Care Provider] - 1-2 days Sloan Cuevas MD [STAFF PHYSICIAN] - 1 Week Discharge Disposition: HOME SELF-CARE
== END 2024-02-04 18:33 | disposition home or self-care (01) ==
LOC: EC 20:01 → 6NMEDSUR 23:57
PROVIDERS: ADMIT Internal Medicine; ATTEND Internal Medicine
DX: I48.0 Paroxysmal atrial fibrillation (principal); J45.901 Unspecified asthma with (acute) exacerbation; I10 Essential (primary) hypertension; K21.9 Gastro-esophageal reflux disease without esophagitis; E78.5 Hyperlipidemia, unspecified; F32.A Depression, unspecified; F41.9 Anxiety disorder, unspecified; M81.0 Age-related osteoporosis without current pathological fracture; Z85.828 Personal history of other malignant neoplasm of skin; Z79.01 Long term (current) use of anticoagulants; Z79.51 Long term (current) use of inhaled steroids; Z79.899 Other long term (current) drug therapy; Z79.83 Long term (current) use of bisphosphonates; Z88.6 Allergy status to analgesic agent
CPT/HCPCS: 96374; 99285; 36415; 94640 ×4; 93005 ×2; 80061; 80053; 83735; 84484 ×2; 85025; 85610; 85730; 84145; 71046; G0378 ×3

== ENCOUNTER 2024-02-28 08:15 | Inpatient (IN) | payer MEDICARE ==
--- NOTE | 2024-02-28 08:50 | ED ---
Nausea/Vomiting/Diarrhea HPI - General Chief complaint: Nausea/Vomiting/Diarrhea Stated complaint: Vomiting Time Seen by Provider: 02/28/24 08:49 Source: patient, RN notes reviewed Mode of arrival: wheelchair Limitations: no limitations - History of Present Illness Initial comments: 83-year-old female presented to the ER for evaluation of weakness and shortness of breath. Patient has a past medical history significant of atrial fibrillation on Eliquis, asthma, COPD, hyperlipidemia and hypertension. Patient does not wear oxygen at home. Patient states for the past 24 to 48 hours she has felt very weak and short of breath. She does experience chest discomfort with deep inspirations. She states this is sharp in nature. Patient also admits to chills. Patient woke up this morning and was having abdominal discomfort along with nausea and vomiting which prompted ER visit. Patient admits to chills but denies fevers at home. Last night she took 2 Tylenol for symptom control. Patient states that she also typically does nebulizer treatment at home but has been out of her solution since Wednesday. She denies known sick contacts. Denies any constipation/diarrhea, urinary complaints or peripheral edema. No exertional dyspnea or orthopnea. - Related Data Home Medications Medication Instructions Recorded Confirmed Citalopram Hydrobromide 20 mg PO DAILY 03/20/15 02/28/24 [Citalopram HBr] Ipratropium-Albuterol Nebulize 3 ml INHALATION RT-QID PRN 03/20/15 02/28/24 [Duoneb 0.5 mg-3 mg/3 ml Soln] Ipratropium/Albuterol Sulfate 1 puff INHALATION RT-QID PRN 03/20/15 02/28/24 [Combivent Respimat Inhaler] Losartan Potassium 50 mg PO DAILY 03/20/15 02/28/24 Montelukast [Singulair] 10 mg PO HS 03/20/15 02/28/24 Omeprazole [PriLOSEC] 20 mg PO DAILY PRN 03/20/15 02/28/24 Azelastine HCl [Astepro] 2 spray NASAL DAILY 12/01/18 02/28/24 Biotin [Biotin Disolve] 5,000 mcg PO DAILY 12/01/18 02/28/24 Levocetirizine Dihydrochloride 5 mg PO DAILY 12/01/18 02/28/24 [Xyzal] Apixaban [Eliquis] 5 mg PO BID 02/03/24 02/28/24 Ascorbic Acid [Vitamin C] 1,000 mg PO DAILY 02/03/24 02/28/24 Cholecalciferol [Vitamin D3 (125 125 mcg PO DAILY 02/03/24 02/28/24 Mcg = 5000 Iu)] Cyanocobalamin (Vitamin B-12) 1,000 mcg PO DAILY 02/03/24 02/28/24 [Vitamin B-12] Magnesium Oxide [Mag-Ox] 800 mg PO HS 02/03/24 02/28/24 [place]-3/Dha/Epa/Fish Oil [Fish Oil 1 cap PO DAILY 02/03/24 02/28/24 1,000 mg Softgel] Vitamin B Complex 1 cap PO DAILY 02/03/24 02/28/24 Zinc Gluconate [Zinc] 50 mg PO BID 02/03/24 02/28/24 cycloSPORINE 0.05% OPHTH SOLN 1 applicator BOTH EYES BID 02/03/24 02/28/24 [Restasis] Amiodarone [Cordarone] 200 mg PO BID 02/28/24 02/28/24 Fluticasone/Umeclidin/Vilanter 1 puff INHALATION RT-DAILY 02/28/24 02/28/24 [Trelegy Ellipta 200-62.5-25] Metoprolol Tartrate 25 mg PO HS 02/28/24 02/28/24 Metoprolol Tartrate 50 mg PO DAILY 02/28/24 02/28/24 Allergies Allergy/AdvReac Type Severity Reaction Status Date / Time aspirin Allergy "BRINGS ON Verified 02/28/24 08:43 ASTHMA ATTACKS" milk Allergy "BLOCKS Verified 02/28/24 08:43 BOWEL" wheat Allergy Cough Verified 02/28/24 08:43 Review of Systems ROS Statement: Those systems with pertinent positive or pertinent negative responses have been documented in the HPI. ROS Other: All systems not noted in ROS Statement are negative. Past Medical History Past Medical History: Asthma, Cancer, COPD, Eye Disorder, GERD/Reflux, Hyperlipidemia, Hypertension Additional Past Medical History / Comment(s): ARRYTHMIA. macular degeneration rt eye SKIN CA ON BACK. colon polyp-cancer, gallstones, hernia History of Any Multi-Drug Resistant Organisms: MRSA Date of last positivie culture/infection: abdominal incision MDRO Source:: 2016 Past Surgical History: Bladder Surgery, Bowel Resection, Hysterectomy, Joint Replacement Additional Past Surgical History / Comment(s): TOTAL JESSE KNEE. LT GREAT TOE. SINUS SURG. EXC CATARACTS, LT arm surgery repair bicep. Past Anesthesia/Blood Transfusion Reactions: Motion Sickness Past Psychological History: Depression Smoking Status: Never smoker Past Alcohol Use History: Rare Past Drug Use History: None Reported - Past Family History Brother(s) Family Medical History: Cancer Mother Sister(s) Family Medical History: Cancer Sister(s) Family Medical History: Deep Vein Thrombosis (DVT) General Exam - General Exam Comments Initial Comments: Visual Physical Exam Vital signs reviewed General: Well-appearing, nontoxic, no acute distress. Head: Normocephalic, atraumatic Eyes: PERRLA, EOMI ENT: Airway patent Chest: Nonlabored breathing Skin: No visual rash, normal skin tone Neuro: Alert and oriented 3 Musculoskeletal: No gross abnormalities Limitations: no limitations General appearance: alert, in no apparent distress Respiratory exam: Present: wheezes (Left lower lung) Cardiovascular Exam: Present: regular rate, normal rhythm, normal heart sounds. Absent: systolic murmur, diastolic murmur, rubs, gallop, clicks GI/Abdominal exam: Present: soft, normal bowel sounds. Absent: distended, tenderness, guarding, rebound, rigid Extremities exam: Present: normal inspection, full ROM, normal capillary refill. Absent: tenderness, pedal edema, joint swelling, calf tenderness Neurological exam: Present: alert, oriented X3, CN II-XII intact Skin exam: Present: warm, dry, intact, normal color. Absent: rash Course Vital Signs 02/28/24 02/28/24 02/28/24 08:41 12:35 13:52 Temperature 99.8 F H 98.9 F Pulse Rate 88 88 82 Respiratory 22 18 Rate Blood Pressure 122/68 110/73 O2 Sat by Pulse 95 94 L Oximetry 02/28/24 14:00 Temperature Pulse Rate 80 Respiratory Rate Blood Pressure O2 Sat by Pulse Oximetry - Reevaluation(s) Reevaluation #1: 02/28/24 13:37 Case discussed with [facility] physicians, Compa Beltrán NP, for admission. Medical Decision Making - Medical Decision Making I performed the quick note portion of this chart. Electronically signed by Jeannette Taveras PA-C Was pt. sent in by a medical professional or institution ([facility], ANGLESMITH HELPER, urgent care, hospital, or residential...) When possible be specific @ -No Did you speak to anyone other than the patient for history (EMS, parent, family, police, friend...)? What history was obtained from this source @ -No Did you review nursing and triage notes (agree or disagree)? Why? @ -I reviewed and agree with nursing and triage notes Were old charts reviewed (outside hosp., previous admission, EMS record, old EKG, old radiological studies, urgent care reports/EKG's, residential records)? Report findings @ -No old charts were reviewed Differential Diagnosis (chest pain, altered mental status, abdominal pain women, abdominal pain men, vaginal bleeding, weakness, fever, dyspnea, syncope, headache, dizziness, GI bleed, back pain, seizure, CVA, palpatations, mental health, musculoskeletal)? @ -Differential Fever:Pneumonia, viral URI, endocarditis, myocarditis, pericarditis, otitis, sinusitis, peritonsillar Abscess, retropharyngeal Abscess, epiglottitis, peritonitis, appendicitis, Sindy cystitis, diverticulitis, hepatitis, colitis, UTI, PID, TOA, pyelonephritis, prostatitis, epididymitis, meningitis, encephalitis, pulmonary embolism, CVA, thyroid storm, pancreatitis, adrenal crisis, cavernous sinus thrombosis, this is not meant to be an all- inclusive list. EKG interpreted by me (3pts min.). @ -As above X-rays interpreted by me (1pt min.). @ -CXR interpreted by me concerning for posterior basilar opacity. CT interpreted by me (1pt min.). @ -None done U/S interpreted by me (1pt. min.). @ -None done What testing was considered but not performed or refused? (CT, X-rays, U/S, labs)? Why? @ -None What meds were considered but not given or refused? Why? @ -None Did you discuss the management of the patient with other professionals (professionals i.e. [facility], ANGLESMITH HELPER, lab, RT, psych nurse, social work associate, motel food service supervisor, teacher, driver license reviewing officer, behavioral health case manager)? Give summary @ -Yes, case discussed with Compa miller ANGLESMITH HELPER, for admission. Was smoking cessation discussed for >3mins.? @ -No Was critical care preformed (if so, how long)? @ -No Were there social determinants of health that impacted care today? How? (Homeles sness, low income, unemployed, alcoholism, drug addiction, transportation, low edu. Level, literacy, decrease access to med. care, longterm, rehab)? @ -No Was there de-escalation of care discussed even if they declined (Discuss DNR or withdrawal of care, Hospice)? DNR status @ -No What co-morbidities impacted this encounter? (DM, HTN, Smoking, COPD, CAD, Cancer, CVA, ARF, Chemo, Hep., AIDS, mental health diagnosis, sleep apnea, morbid obesity)? @ -COPD, asthma, hyperlipidemia, hypertension, cancer, hx a. fib on eliquis Was patient admitted / discharged? Hospital course, mention meds given and r oute, prescriptions, significant lab abnormalities, going to OR and other pertinent info. @ -Admitted. 83-year-old female presenting to the ER for evaluation of shortness of breath, weakness and nausea and vomiting. Patient originally seen as a quick note. Upon rooming, history and physical exam completed. Patient did have a low-grade temperature of 99.8 F, vitals otherwise stable. Wheezing noted in the right lower lung field. Otherwise exam benign. Laboratory studies obtained showed leukocytosis of 18.9 with a left shift. CMP unremarkable. Troponin less than 0.012. BNP 1770. Influenza, RSV, COVID-negative. CXR concerning of basilar opacity versus pulmonary vascular congestion. Given leukocytosis, low-grade fever and patient complaining of chills I believe this is pneumonia and patient will be started on azithromycin and Rocephin. Blood cultures obtained. Patient given p.o. Tylenol, DuoNeb nebulizer, Solu-Medrol along with a 1 L fluid bolus in the ER. Given patient's age and pneumonia diagnosis admission was considered and discussed with sekou physicianCompa NP. Patient agreeable for admission. Patient remained stable throughout ER. Case discussed with ED attending, Dr. Velazquez. Undiagnosed new problem with uncertain prognosis? @ -No Drug Therapy requiring intensive monitoring for toxicity (Heparin, Nitro, Insulin, Cardizem)? @ -No Were any procedures done? @ -No Diagnosis/symptom? @ -Pneumonia Acute, or Chronic, or Acute on Chronic? @ -Acute Uncomplicated (without systemic symptoms) or Complicated (systemic symptoms)? @ -Complicated Side effects of treatment? @ -No Exacerbation, Progression, or Severe Exacerbation? @ -No Poses a threat to life or bodily function? How? (Chest pain, [place], [place], pneumonia, PE, COPD, DKA, ARF, appy, cholecystitis, CVA, Diverticulitis, Homicidal, Suicidal, threat to staff... and all critical care pts) @ -Yes, pneumonia can lead to sepsis and/or endorgan dysfunction. - Lab Data Result diagrams: 02/28/24 10:03 02/28/24 10:03 Lab Results 02/28/24 02/28/24 02/28/24 Range/Units 10:03 10:03 10:03 WBC 18.9 H (3.8-10.6) k/uL RBC 4.63 (3.80-5.40) m/uL Hgb 14.6 (11.4-16.0) gm/dL Hct 43.9 (34.0-46.0) % MCV 95.0 (80.0-100.0) fL MCH 31.6 (25.0-35.0) pg MCHC 33.2 (31.0-37.0) g/dL RDW 13.6 (11.5-15.5) % Plt Count 196 (150-450) k/uL MPV 6.8 Neutrophils % 92 % Lymphocytes % 3 % Monocytes % 4 % Eosinophils % 0 % Basophils % 0 % Neutrophils # 17.4 H (1.3-7.7) k/uL Lymphocytes # 0.6 L (1.0-4.8) k/uL Monocytes # 0.7 (0-1.0) k/uL Eosinophils # 0.1 (0-0.7) k/uL Basophils # 0.0 (0-0.2) k/uL PT (10.0-12.5) sec INR (<1.2) APTT (22.0-30.0) sec Sodium 135 L (137-145) mmol/L Potassium 4.5 (3.5-5.1) mmol/L Chloride 99 (98-107) mmol/L Carbon Dioxide 28 (22-30) mmol/L Anion Gap 8 mmol/L BUN 14 (7-17) mg/dL Creatinine 0.64 (0.52-1.04) mg/dL Est GFR (CKD-EPI)AfAm >90 (>60 ml/min/1.73 sqM) Est GFR (CKD-EPI)NonAf 83 (>60 ml/min/1.73 sqM) Glucose 95 (74-99) mg/dL Plasma Lactic Acid Leonardo (0.7-2.0) mmol/L Calcium 9.2 (8.4-10.2) mg/dL Total Bilirubin 1.3 (0.2-1.3) mg/dL AST 29 (14-36) U/L ALT 19 (4-34) U/L Alkaline Phosphatase 74 (38-126) U/L Troponin I (0.000-0.034) ng/mL NT-Pro-B Natriuret Pep pg/mL Total Protein 6.5 (6.3-8.2) g/dL Albumin 4.4 (3.5-5.0) g/dL Amylase 42 (30-110) U/L Lipase 35 (23-300) U/L Influenza Type A (PCR) Not Detected (Not Detectd) Influenza Type B (PCR) Not Detected (Not Detectd) RSV (PCR) Not Detected (Not Detectd) SARS-CoV-2 (PCR) Not Detected (Not Detectd) 02/28/24 02/28/24 02/28/24 Range/Units 10:03 12:27 12:27 WBC (3.8-10.6) k/uL RBC (3.80-5.40) m/uL Hgb (11.4-16.0) gm/dL Hct (34.0-46.0) % MCV (80.0-100.0) fL MCH (25.0-35.0) pg MCHC (31.0-37.0) g/dL RDW (11.5-15.5) % Plt Count (150-450) k/uL MPV Neutrophils % % Lymphocytes % % Monocytes % % Eosinophils % % Basophils % % Neutrophils # (1.3-7.7) k/uL Lymphocytes # (1.0-4.8) k/uL Monocytes # (0-1.0) k/uL Eosinophils # (0-0.7) k/uL Basophils # (0-0.2) k/uL PT 10.7 (10.0-12.5) sec INR 1.0 (<1.2) APTT 23.3 (22.0-30.0) sec Sodium (137-145) mmol/L Potassium (3.5-5.1) mmol/L Chloride (98-107) mmol/L Carbon Dioxide (22-30) mmol/L Anion Gap mmol/L BUN (7-17) mg/dL Creatinine (0.52-1.04) mg/dL Est GFR (CKD-EPI)AfAm (>60 ml/min/1.73 sqM) Est GFR (CKD-EPI)NonAf (>60 ml/min/1.73 sqM) Glucose (74-99) mg/dL Plasma Lactic Acid Leonardo 1.8 (0.7-2.0) mmol/L Calcium (8.4-10.2) mg/dL Total Bilirubin (0.2-1.3) mg/dL AST (14-36) U/L ALT (4-34) U/L Alkaline Phosphatase (38-126) U/L Troponin I <0.012 (0.000-0.034) ng/mL NT-Pro-B Natriuret Pep pg/mL Total Protein (6.3-8.2) g/dL Albumin (3.5-5.0) g/dL Amylase (30-110) U/L Lipase (23-300) U/L Influenza Type A (PCR) (Not Detectd) Influenza Type B (PCR) (Not Detectd) RSV (PCR) (Not Detectd) SARS-CoV-2 (PCR) (Not Detectd) 02/28/24 Range/Units 12:27 WBC (3.8-10.6) k/uL RBC (3.80-5.40) m/uL Hgb (11.4-16.0) gm/dL Hct (34.0-46.0) % MCV (80.0-100.0) fL MCH (25.0-35.0) pg MCHC (31.0-37.0) g/dL RDW (11.5-15.5) % Plt Count (150-450) k/uL MPV Neutrophils % % Lymphocytes % % Monocytes % % Eosinophils % % Basophils % % Neutrophils # (1.3-7.7) k/uL Lymphocytes # (1.0-4.8) k/uL Monocytes # (0-1.0) k/uL Eosinophils # (0-0.7) k/uL Basophils # (0-0.2) k/uL PT (10.0-12.5) sec INR (<1.2) APTT (22.0-30.0) sec Sodium (137-145) mmol/L Potassium (3.5-5.1) mmol/L Chloride (98-107) mmol/L Carbon Dioxide (22-30) mmol/L Anion Gap mmol/L BUN (7-17) mg/dL Creatinine (0.52-1.04) mg/dL Est GFR (CKD-EPI)AfAm (>60 ml/min/1.73 sqM) Est GFR (CKD-EPI)NonAf (>60 ml/min/1.73 sqM) Glucose (74-99) mg/dL Plasma Lactic Acid Leonardo (0.7-2.0) mmol/L Calcium (8.4-10.2) mg/dL Total Bilirubin (0.2-1.3) mg/dL AST (14-36) U/L ALT (4-34) U/L Alkaline Phosphatase (38-126) U/L Troponin I (0.000-0.034) ng/mL NT-Pro-B Natriuret Pep 1770 pg/mL Total Protein (6.3-8.2) g/dL Albumin (3.5-5.0) g/dL Amylase (30-110) U/L Lipase (23-300) U/L Influenza Type A (PCR) (Not Detectd) Influenza Type B (PCR) (Not Detectd) RSV (PCR) (Not Detectd) SARS-CoV-2 (PCR) (Not Detectd) - EKG Data -: EKG Interpreted by Me EKG Comments: EKG taken at 11: 53 showing atrial fibrillation. No ST segment elevations or depressions. Ventricular rate 93, QRS duration 95, QT/QTc 374/424. - Radiology Data Radiology results: report reviewed, image reviewed Disposition Clinical Impression: Pneumonia Disposition: ADMITTED IP TO THIS HOSP Condition: Stable Referrals: Ti Stein DO [Primary Care Provider] - 1-2 days Time of Disposition: 13:37
[2024-02-28 10:13] LABS: Basophils % (A) 0 %; Eosinophils # (A) 0.1 k/uL (0-0.7); Eosinophils % (A) 0 %; HCT 43.9 % (34.0-46.0); HGB 14.6 gm/dL (11.4-16.0); Lymphocytes # (A) 0.6 k/uL (1.0-4.8); Lymphocytes % (A) 3 %; MCH 31.6 pg (25.0-35.0); MCHC 33.2 g/dL (31.0-37.0); Mean Platelet Volume 6.8; Monocytes # (A) 0.7 k/uL (0-1.0); Monocytes % (A) 4 %; Neutrophils # (A) 17.4 k/uL (1.3-7.7); Neutrophils % (A) 92 %; Platelet Count 196 k/uL (150-450); RBC 4.63 m/uL (3.80-5.40); RDW 13.6 % (11.5-15.5); WBC 18.9 k/uL (3.8-10.6)
[2024-02-28 10:26] LABS: ALT 19 U/L (4-34); AST 29 U/L (14-36); African American GFR (CKD) >90 (>60 ml/min/1.73 sqM); Albumin 4.4 g/dL (3.5-5.0); Alkaline Phosphatase 74 U/L (38-126); Amylase 42 U/L (30-110); Anion Gap 8 mmol/L; Blood Urea Nitrogen 14 mg/dL (7-17); Calcium 9.2 mg/dL (8.4-10.2); Carbon Dioxide 28 mmol/L (22-30); Chloride 99 mmol/L (98-107); Glucose 95 mg/dL (74-99); Lipase 35 U/L (23-300); Non-African American GFR(CKD) 83 (>60 ml/min/1.73 sqM); Potassium 4.5 mmol/L (3.5-5.1); Sodium 135 mmol/L (137-145); Total Bilirubin 1.3 mg/dL (0.2-1.3); Total Protein 6.5 g/dL (6.3-8.2)
[2024-02-28 10:50] LABS: Influenza A Not Detected (Not Detectd); Influenza B Not Detected (Not Detectd); RSV Not Detected (Not Detectd)
--- NOTE | 2024-02-28 12:09 | XR ---
EXAMINATION TYPE: XR chest 2V DATE OF EXAM: 02/28/2024 11:58 AM COMPARISON: 02/02/2024 CLINICAL INDICATION: Female, 83 years old with history of weakness, , TECHNIQUE: AP and lateral views FINDINGS: Heart borderline enlarged. Diffuse interstitial densities and focal dense posterior basilar opacity o n the lateral view. Possible trace left pleural effusion. Suture anchor left humeral head from prior cuff repair. IMPRESSION: 1. Borderline cardiomegaly with diffuse interstitial densities. Consider CHF with pulmonary vascular congestion. 2. More focal opacity posterior base on the lateral view with possible trace left effusion. Patchy pu lmonary edema versus pneumonia are considerations. [facility], Workstation: [facility], 02/28/2024 12:06 PM
[2024-02-28] MEDS: ACETAMINOPHEN TAB 325 MG TAB PO STA (12:32)
[2024-02-28] MEDS: SODIUM CHLORIDE 0.9% 1,000 ML IV STA (12:33)
[2024-02-28 12:59] LABS: Partial Thromboplastin Time 23.3 sec (22.0-30.0); Prothrombin Time 10.7 sec (10.0-12.5)
[2024-02-28] MEDS ORDERED: ONDANSETRON 4 MG/2 ML VIAL IVP PRN (13:35)
[2024-02-28] MEDS ORDERED: NALOXONE 0.4 MG/ML 1 ML VIAL IV PRN (13:35)
[2024-02-28] MEDS ORDERED: ACETAMINOPHEN TAB 325 MG TAB PO PRN (13:35)
[2024-02-28] MEDS: IPRATROPIUM-ALBUTEROL 3 ML NEB INHALATION STA (13:51)
[2024-02-28] MEDS: AZITHROMYCIN 500 MG TAB PO STA (14:00)
[2024-02-28] MEDS: SODIUM CHLORIDE 0.9% 1,000 ML IV SCH (14:03)
[2024-02-28] MEDS ORDERED: IPRATROPIUM-ALBUTEROL 3 ML NEB INHALATION PRN (15:31)
--- NOTE | 2024-02-28 15:40 | P.HPIM ---
History of Present Illness H&P Date: 02/28/24 83 year old F with PMH of AFib, HTN, Asthma, Depression presents to the ED for a constellation of symptoms. Patient reports feeling cold yesterday. She reports periumbillical pain, intermittent, dull which she described as "stomach ache". She had one episode of N/V. No changes in urination or bowel habits. She blamed it on eating refrigerated potatoes and yogurt thinking it was food poisoning. She also reports a cough productive of mendiola sputum. She reports left upper back pain and left sided chest pain only with deep inspiration. In the ED she underwent extensive evaluation. BP 122/68, HR 88, T 99.8F, RR 22, 95% on RA. CBC, Coag panel, CMP significant for WBC 18.9, Na 135. Lactic acid 1.8. BNP 1770. Trop < 0.012. Amylase 42. Lipase 35. COVID, RSV, Flu neg. EKG A-Flutter with rate of 93. CXR cardiomegaly with diffuse interstitial densities, focal opacity posterior base with possible trace left effusion. Patient was started on Rocephin and Azithromycin and admitted for further workup and management. General: non toxic, no distress, appears at stated age Derm: warm, dry Head: atraumatic, normocephalic, symmetric Eyes: EOMI, no lid lag, anicteric sclera Mouth: no lip lesion, mucus membranes moist Cardiovascular: S1S2 reg, no murmur Lungs: CTA bilateral, no rhonchi, no rales , no accessory muscle use Ext: no gross muscle atrophy, no edema, no contractures Neuro: no focal neuro deficits Psych: Alert, oriented, appropriate affect Based on my assessment of this patient, this patient meets a high complexity level of care. Community Acquired Pneumonia: Patient with low grade fever and leukocytosis and CXR findings concerning for PNA. Start Rocephin 1g IV QD + Azithromycin 500 mg PO QD for treatment of PNA. Mucinex 600 mg PO BID. DuoNeb QID PRN SOB/wheezing. Tylenol 650 mg PO Q6H PRN fever. Zofran 4 mg IV TID PRN N/V. Obtain Sputum Cx, Legionella Ag. BNP 1770, low concerns for CHF however will obtain Echo. Order Pro-olivia. Pulmonary consult. AFib: Eliquis 5 mg PO BID. Amiodarone 200 mg PO BID. Metoprolol 25 mg PO QHS + 50 mg PO QD. HTN: Losartan 50 mg PO QD. Asthma: Singulair 10 mg PO QHS. Depression: Celexa 20 mg PO QD. CODE STATUS: FULL CODE DVT Prophylaxis: Eliquis. GI Prophylaxis: Protonix. Designated medical POA if patient is not able to make medical decisions for themselves: Daughter. I have reviewed the following life consultant notes: ED note I have reviewed the results of the following tests: As above I have ordered the following tests: As above I have discussed the care of this patient with the following independent historian: Daughter. I have independently interpreted the following test below: CXR. I have discussed the management of this patient with the following physician: Past Medical History Past Medical History: Asthma, Cancer, COPD, Eye Disorder, GERD/Reflux, Hyperlipidemia, Hypertension Additional Past Medical History / Comment(s): ARRYTHMIA. macular degeneration rt eye SKIN CA ON BACK. colon polyp-cancer, gallstones, hernia History of Any Multi-Drug Resistant Organisms: MRSA Date of last positivie culture/infection: abdominal incision MDRO Source:: 2015 Past Surgical History: Bladder Surgery, Bowel Resection, Hysterectomy, Joint Replacement Additional Past Surgical History / Comment(s): TOTAL JESSE KNEE. LT GREAT TOE. SINUS SURG. EXC CATARACTS, LT arm surgery repair bicep. Past Anesthesia/Blood Transfusion Reactions: Motion Sickness Past Psychological History: Depression Smoking Status: Never smoker Past Alcohol Use History: Rare Past Drug Use History: None Reported - Past Family History Brother(s) Family Medical History: Cancer Mother Sister(s) Family Medical History: Cancer Sister(s) Family Medical History: Deep Vein Thrombosis (DVT) Medications and Allergies Home Medications Medication Instructions Recorded Confirmed Type Citalopram Hydrobromide 20 mg PO DAILY 03/20/15 02/28/24 History [Citalopram HBr] Ipratropium-Albuterol Nebulize 3 ml INHALATION RT-QID PRN 03/20/15 02/28/24 History [Duoneb 0.5 mg-3 mg/3 ml Soln] Ipratropium/Albuterol Sulfate 1 puff INHALATION RT-QID PRN 03/20/15 02/28/24 History [Combivent Respimat Inhaler] Losartan Potassium 50 mg PO DAILY 03/20/15 02/28/24 History Montelukast [Singulair] 10 mg PO HS 03/20/15 02/28/24 History Omeprazole [PriLOSEC] 20 mg PO DAILY PRN 03/20/15 02/28/24 History Azelastine HCl [Astepro] 2 spray NASAL DAILY 12/01/18 02/28/24 History Biotin [Biotin Disolve] 5,000 mcg PO DAILY 12/01/18 02/28/24 History Levocetirizine Dihydrochloride 5 mg PO DAILY 12/01/18 02/28/24 History [Xyzal] Apixaban [Eliquis] 5 mg PO BID 02/03/24 02/28/24 History Ascorbic Acid [Vitamin C] 1,000 mg PO DAILY 02/03/24 02/28/24 History Cholecalciferol [Vitamin D3 (125 125 mcg PO DAILY 02/03/24 02/28/24 History Mcg = 5000 Iu)] Cyanocobalamin (Vitamin B-12) 1,000 mcg PO DAILY 02/03/24 02/28/24 History [Vitamin B-12] Magnesium Oxide [Mag-Ox] 800 mg PO HS 02/03/24 02/28/24 History [place]-3/Dha/Epa/Fish Oil [Fish Oil 1 cap PO DAILY 02/03/24 02/28/24 History 1,000 mg Softgel] Vitamin B Complex 1 cap PO DAILY 02/03/24 02/28/24 History Zinc Gluconate [Zinc] 50 mg PO BID 02/03/24 02/28/24 History cycloSPORINE 0.05% OPHTH SOLN 1 applicator BOTH EYES BID 02/03/24 02/28/24 History [Restasis] Amiodarone [Cordarone] 200 mg PO BID 02/28/24 02/28/24 History Fluticasone/Umeclidin/Vilanter 1 puff INHALATION RT-DAILY 02/28/24 02/28/24 History [Trelegy Ellipta 200-62.5-25] Metoprolol Tartrate 25 mg PO HS 02/28/24 02/28/24 History Metoprolol Tartrate 50 mg PO DAILY 02/28/24 02/28/24 History Allergies Allergy/AdvReac Type Severity Reaction Status Date / Time aspirin Allergy "BRINGS ON Verified 02/28/24 08:43 ASTHMA ATTACKS" milk Allergy "BLOCKS Verified 02/28/24 08:43 BOWEL" wheat Allergy Cough Verified 02/28/24 08:43 Physical Exam Vitals: Vital Signs Temp Pulse Resp BP Pulse Ox 02/28/24 14:00 80 02/28/24 13:52 82 02/28/24 12:35 98.9 F 88 18 110/73 94 L 02/28/24 08:41 99.8 F H 88 22 122/68 95 Intake and Output 02/28/24 02/28/24 02/28/24 06:59 14:59 22:59 Other: Weight 81.647 kg Results CBC & Chem 7: 02/28/24 10:03 02/28/24 10:03 Labs: Abnormal Lab Results - Last 24 Hours (Table) 02/28/24 02/28/24 Range/Units 10:03 10:03 WBC 18.9 H (3.8-10.6) k/uL Neutrophils # 17.4 H (1.3-7.7) k/uL Lymphocytes # 0.6 L (1.0-4.8) k/uL Sodium 135 L (137-145) mmol/L
[2024-02-28 15:55] LABS: Appearance,Urine Turbid (Clear); Bacteria,Urine Rare /hpf; Bilirubin,Urine Negative (Negative); Blood,Urine Negative (Negative); Budding Yeast,Urine Few /hpf; Color,Urine Yellow; Glucose,Urine (UA) Negative (Negative); Ketones,Urine Negative (Negative); Leukocyte Esterase,Urine Small (Negative); Mucus,Urine Rare /hpf; Nitrite,Urine Positive (Negative); PH, Urine 7.5 (5.0-8.0); Protein,Urine Negative (Negative); RBC,Urine 3 /hpf (0-5); Specific Gravity,Urine 1.018 (1.001-1.035); Urobilinogen,Urine <2.0 mg/dL (<2.0); WBC,Urine 12 /hpf (0-5)
[2024-02-28] MEDS: methylPREDNISolone SOD SUCCI 40 MG/ML 1 ML VIAL IV STA (16:27)
[2024-02-28] MEDS: IPRATROPIUM 0.5 MG/2.5 ML NEBU INHALATION SCH (18:05)
[2024-02-28] MEDS: SYMBICORT 160-4.5 MCG INHALER INHALATION SCH (19:58)
[2024-02-28] MEDS: AMIODARONE 200 MG TAB PO SCH (20:25)
[2024-02-28] MEDS: guaiFENesin 600 MG TABLET.ER PO SCH (20:25)
[2024-02-28] MEDS: METOPROLOL TARTRATE 25 MG TAB PO SCH (20:25)
[2024-02-28] MEDS: MONTELUKAST 10 MG TAB PO SCH (20:25)
[2024-02-28] MEDS: APIXABAN 5 MG TAB PO SCH (20:26)
[2024-02-29] MEDS: CITALOPRAM HYDROBROMIDE 20 MG TAB PO SCH (07:51)
[2024-02-29] MEDS: METOPROLOL TARTRATE 50 MG TAB PO SCH (07:52)
[2024-02-29] MEDS: LOSARTAN 50 MG TAB PO SCH (07:52)
[2024-02-29] MEDS: AZITHROMYCIN 500 MG TAB PO SCH (07:52)
[2024-02-29] MEDS: LORATADINE 10 MG TAB PO SCH (07:52)
[2024-02-29] MEDS ORDERED: NON FORMULARY DRUG (Fluticasone/Umeclidin/Vilanter [Trelegy Ellipta 200-62.5-25] 1 EACH Bl INHALATION SCH (08:00)
[2024-02-29 10:51] LABS: Basophils # (A) 0.01 X 10*3/uL (0.00-0.10); Basophils % (A) 0.1 %; Eosinophils # (A) 0 X 10*3/uL (0.04-0.35); Eosinophils % (A) 0 %; HCT 38.2 % (37.2-46.3); HGB 12.4 g/dL (12.0-15.0); Lymphocytes # (A) 0.85 X 10*3/uL (0.90-5.00); Lymphocytes % (A) 5.2 %; MCH 31.1 pg (27.0-32.0); MCHC 32.5 g/dL (32.0-37.0); MCV 95.7 FL (80.0-97.0); Mean Platelet Volume 9.7 FL (9.5-12.2); Monocytes # (A) 0.39 X 10*3/uL (0.20-1.00); Monocytes % (A) 2.4 %; NRBC Per 100 WBC 0 X 10*3/uL (0.00-0.01); Neutrophils # (A) 15.02 X 10*3/uL (1.80-7.70); Neutrophils % (A) 91.7 %; Platelet Count 184 X 10*3/uL (140-440); RBC 3.99 X 10*6/uL (4.10-5.20); RDW 14.5 % (11.5-14.5); WBC 16.36 X 10*3/uL (4.50-10.00)
[2024-02-29 11:11] LABS: Blood Urea Nitrogen 11.2 mg/dL (9.0-27.0); Calcium 8.3 mg/dL (8.7-10.3); Carbon Dioxide 24.5 mmol/L (21.6-31.8); Chloride 103 mmol/L (96-109); Glucose 123 mg/dL (70-110); Magnesium 1.9 mg/dL (1.5-2.4); Potassium 4.3 mmol/L (3.5-5.5); Sodium 138 mmol/L (135-145)
--- NOTE | 2024-02-29 12:08 | CA ---
Transthoracic Echo Report Name: Olimpia Kumar Age: 83 Gender: F : 1940 Exam Date: 02/29/2024 10:30 Exam Location: [place] [facility] Ht (in): 63 Wt (lb): 180 Ordering Physician: Pamela Aceves MD Attending/Referring Phys: Youth Teacher Farhana Azul RDCS Procedure CPT: Indications: sob Cardiac Hx: Technical Quality: Good Contrast 1: Total Dose (mL): Contrast 2: Total Dose (mL): MEASUREMENTS (Male / Female) Normal Values 2D ECHO LV Diastolic Diameter PLAX 5.3 cm 4.2 - 5.9 / 3.9 - 5.3 cm LV Systolic Diameter PLAX 3.8 cm IVS Diastolic Thickness 0.9 cm 0.6 - 1.0 / 0.6 - 0.9 cm LVPW Diastolic Thickness 0.9 cm 0.6 - 1.0 / 0.6 - 0.9 cm LV Relative Wall Thickness 0.3 RV Internal Dim ED PLAX 3.2 cm LA Systolic Diameter LX 3.7 cm 3.0 - 4.0 / 2.7 - 3.8 cm LV Diastolic Volume MOD BP 77.9 cm??? 67 - 155 / 56 - 104 cm??? LV Systolic Volume MOD BP 40.4 cm??? 22 - 58 / 19 - 49 cm??? LV Ejection Fraction MOD BP 48.2 % >= 55 % LV Cardiac Index MOD BP 1781.7 cm???/min???m??? LV Diastolic Volume MOD 4C 72.7 cm??? LV Systolic Volume MOD 4C 40.6 cm??? LV Ejection Fraction MOD 4C 44.2 % LV Cardiac Index MOD 4C 1525.5 cm???/min???m??? LV Diastolic Length 4C 6.3 cm LV Systolic Length 4C 6.2 cm LV Diastolic Volume MOD 2C 77.9 cm??? LV Systolic Volume MOD 2C 38.3 cm??? LV Ejection Fraction MOD 2C 50.8 % LV Cardiac Index MOD 2C 1880.5 cm???/min???m??? LV Diastolic Length 2C 6.9 cm LV Systolic Length 2C 5.8 cm LA Volume 44.8 cm??? 18 - 58 / 22 - 52 cm??? LA Volume Index 23.2 cm???/m??? 16 - 28 cm???/m??? M-MODE Aortic Root Diameter MM 3.5 cm AV Cusp Separation MM 2.0 cm DOPPLER AV Peak Velocity 100.8 cm/s AV Peak Gradient 4.1 mmHg MV Area PHT 5.0 cm??? MV Deceleration Time 165.5 ms TR Peak Velocity 272.5 cm/s TR Peak Gradient 29.7 mmHg Right Ventricular Systolic Press 44.5 mmHg FINDINGS Left Ventricle Left ventricular ejection fraction is estimated at 45-50 %. Mildly decreased left ventricular ejection fraction. Left ventricular cavity size normal. Left ventricular wall thickness normal. Right Ventricle Normal right ventricular size. Mild to Moderate pulmonary hypertension. Right Atrium Normal right atrial size. No right atrial thrombus or mass seen. Left Atrium Normal left atrial size. No left atrial thrombus or mass present. Mitral Valve Mitral valve thickened. Mitral annular calcification. [id number] mitral regurgitation. Aortic Valve Trileaflet aortic valve. No aortic valve stenosis or regurgitation. Tricuspid Valve Structurally normal tricuspid valve. Mild tricuspid regurgitation. Pulmonic Valve Structurally normal pulmonic valve. No pulmonic regurgitation. Pericardium No pericardial or pleural effusion. Aorta Normal size aortic root and proximal ascending aorta. CONCLUSIONS LVEF 45 to 50% No obvious regional wall motion abnormality Mildly reduced global LV systolic function Mild LVH Moderate pulmonary hypertension RVSP 44 mmHg. Normal RV size Mild to moderate MR Mild to moderate TR Previewed by: Dr Jw Murcia (Electronically Signed) Final Date: 29 February 2024 12:08
--- NOTE | 2024-02-29 15:27 | P.CNPUL ---
History of Present Illness Consult date: 02/29/24 Reason for consult: dyspnea History of present illness: 83-year-old female patient with severe persistent bronchial asthma who came into the emergency department with worsening shortness of breath and weakness. The patient developed a dose of symptoms few days back and her condition progressively got worse. She also was experiencing some discomfort and soreness in her chest upon deep breathing and at the same time the patient was actively bronchospastic and wheezy. The patient also reported some periumbilical discomfort, dull stomachache and some limited nausea, no emesis. No dysuria frequency or urgency. No fever. Based on those symptoms, the patient presented to the emergency department. The white cell count was at 16.3 with a hemoglobin 12.4 and a platelet count of 184. Electrolytes were all within normal limits. BUN was 11 with a creatinine of 0.7. The patient's troponins were negative, proBNP level was 1770 and procalcitonin level was at 0.53. I reviewed the chest x-ray and there is some increased interstitial markings and some limited infiltration of the lung bases bilaterally. Echocardiogram was done this morn ing and it showed mild impairment of the LV function with an estimated ejection fraction of 45 to 50%. The patient has mild to moderate mitral regurgitation, mild to moderate tricuspid regurgitation and moderate degree of pulm hypertension with a right ventricular systolic pressure of around 44 mmHg. Based on that, a pulmonary consultation was requested. Noted the patient has history of chronic atrial fibrillation. EKG was done in the emergency department was consistent with a febrile, controlled rate. She is also known to have history of hypertension, hyperlipidemia and previous history of colon cancer In terms of her bronchial asthma, this patient has history of severe persistent bronchial asthma and she has been treated through our office that she has required on and off prednisone taper to optimize her asthmatic exacerbations. Based on my records, and based on her most recent office visits, her peak flow was 390 whereas her best peak flow was around 450. She remains on a combination of Trelegy Ellipta 1 puff a day, Singulair 10 mg p.o. daily, theophylline and she is also on Tezspire injections. She continues to receive Flonase for symptoms of allergic rhinitis. Noted her serum eosinophil count was low on previous evaluations. She does have chronic sinus disease/allergic rhinitis. She suffers from osteoarthritis. She is also known to have hypertension, hyperlipidemia and previous history of colon cancer. The patient has undergone previous colectomy and her colon cancer has been in remission. Subsequently she developed an incisional hernia that required surgical repair and this was done without any complications. Review of Systems Constitutional: Reports fatigue, Reports weakness Eyes: denies as per HPI, denies blurred vision, denies bulging eye, denies decreased vision, denies diplopia, denies discharge, denies dry eye, denies irritation, denies itching, denies pain, denies photophobia, denies loss of peripheral vision, denies loss of vision, denies tunnel vision/blind spots Ears: deny: decreased hearing, ear discharge, earache, tinnitus Ears, nose, mouth and throat: Reports as per HPI Breasts: absent: as per HPI, change in shape, gynecomastia, masses, nipple discharge, pain, skin changes, swelling Cardiovascular: Reports decreased exercise tolerance, Reports dyspnea on exerti on Respiratory: Reports congestion, Reports cough, Reports dyspnea, Reports wheezing Gastrointestinal: Reports abdominal pain, Reports nausea Genitourinary: Reports as per HPI Menstruation: Reports as per HPI Musculoskeletal: Reports as per HPI Musculoskeletal: absent: ankle pain, ankle stiffness, ankle swelling, as per HPI, elbow pain, elbow stiffness, elbow swelling, foot pain, foot stiffness, foot swelling, hand pain, hand stiffness, hand swelling, hip pain, hip stiffness, hip swelling, knee pain, knee stiffness, knee swelling, shoulder pain , shoulder stiffness, shoulder swelling, wrist pain, wrist stiffness, wrist swelling Integumentary: Reports as per HPI Neurological: Reports as per HPI Psychiatric: Reports as per HPI Endocrine: Reports as per HPI Hematologic/Lymphatic: Reports as per HPI Allergic/Immunologic: Reports as per HPI Past Medical History Past Medical History: Asthma, Cancer, COPD, Eye Disorder, GERD/Reflux, Hyperlipidemia, Hypertension Additional Past Medical History / Comment(s): ARRYTHMIA. macular degeneration rt eye SKIN CA ON BACK. colon polyp-cancer, gallstones, hernia History of Any Multi-Drug Resistant Organisms: MRSA Date of last positivie culture/infection: abdominal incision MDRO Source:: 2015 Past Surgical History: Bladder Surgery, Bowel Resection, Hysterectomy, Joint Replacement Additional Past Surgical History / Comment(s): TOTAL JESSE KNEE. LT GREAT TOE. SINUS SURG. EXC CATARACTS, LT arm surgery repair bicep. Past Anesthesia/Blood Transfusion Reactions: Motion Sickness Past Psychological History: Depression Smoking Status: Never smoker Past Alcohol Use History: Rare Past Drug Use History: None Reported - Past Family History Brother(s) Family Medical History: Cancer Mother Sister(s) Family Medical History: Cancer Sister(s) Family Medical History: Deep Vein Thrombosis (DVT) Medications and Allergies Home Medications Medication Instructions Recorded Confirmed Type Citalopram Hydrobromide 20 mg PO DAILY 03/20/15 02/28/24 History [Citalopram HBr] Ipratropium-Albuterol Nebulize 3 ml INHALATION RT-QID PRN 03/20/15 02/28/24 History [Duoneb 0.5 mg-3 mg/3 ml Soln] Ipratropium/Albuterol Sulfate 1 puff INHALATION RT-QID PRN 03/20/15 02/28/24 History [Combivent Respimat Inhaler] Losartan Potassium 50 mg PO DAILY 03/20/15 02/28/24 History Montelukast [Singulair] 10 mg PO HS 03/20/15 02/28/24 History Omeprazole [PriLOSEC] 20 mg PO DAILY PRN 03/20/15 02/28/24 History Azelastine HCl [Astepro] 2 spray NASAL DAILY 12/01/18 02/28/24 History Biotin [Biotin Disolve] 5,000 mcg PO DAILY 12/01/18 02/28/24 History Levocetirizine Dihydrochloride 5 mg PO DAILY 12/01/18 02/28/24 History [Xyzal] Apixaban [Eliquis] 5 mg PO BID 02/03/24 02/28/24 History Ascorbic Acid [Vitamin C] 1,000 mg PO DAILY 02/03/24 02/28/24 History Cholecalciferol [Vitamin D3 (125 125 mcg PO DAILY 02/03/24 02/28/24 History Mcg = 5000 Iu)] Cyanocobalamin (Vitamin B-12) 1,000 mcg PO DAILY 02/03/24 02/28/24 History [Vitamin B-12] Magnesium Oxide [Mag-Ox] 800 mg PO HS 02/03/24 02/28/24 History Aiken-3/Dha/Epa/Fish Oil [Fish Oil 1 cap PO DAILY 02/03/24 02/28/24 History 1,000 mg Softgel] Vitamin B Complex 1 cap PO DAILY 02/03/24 02/28/24 History Zinc Gluconate [Zinc] 50 mg PO BID 02/03/24 02/28/24 History cycloSPORINE 0.05% OPHTH SOLN 1 applicator BOTH EYES BID 02/03/24 02/28/24 History [Restasis] Amiodarone [Cordarone] 200 mg PO BID 02/28/24 02/28/24 History Fluticasone/Umeclidin/Vilanter 1 puff INHALATION RT-DAILY 02/28/24 02/28/24 History [Trelegy Ellipta 200-62.5-25] Metoprolol Tartrate 25 mg PO HS 02/28/24 02/28/24 History Metoprolol Tartrate 50 mg PO DAILY 02/28/24 02/28/24 History Allergies Allergy/AdvReac Type Severity Reaction Status Date / Time aspirin Allergy "BRINGS ON Verified 02/28/24 08:43 ASTHMA ATTACKS" milk Allergy "BLOCKS Verified 02/28/24 08:43 BOWEL" wheat Allergy Cough Verified 02/28/24 08:43 Physical Exam Vitals: Vital Signs Temp Pulse Pulse Resp BP BP Pulse Ox 02/29/24 13:10 98.5 F 86 18 122/71 94 L 02/29/24 11:58 92 02/29/24 11:44 100 02/29/24 08:33 84 02/29/24 08:18 80 02/29/24 07:30 98.3 F 93 20 129/71 96 02/29/24 02:00 98.6 F 89 14 103/68 94 L 02/28/24 20:07 92 02/28/24 20:00 14 02/28/24 19:58 90 02/28/24 19:19 98.7 F 101 H 14 125/74 96 02/28/24 17:41 99.4 F 90 18 117/70 94 L Intake and Output 02/29/24 02/29/24 02/29/24 06:59 14:59 22:59 Intake Total 540 Balance 540 Intake: Oral 540 Other: Voiding Method Toilet # Voids 1 The patient appeared well nourished and normally developed. Vital signs as documented. Currently the patient on room air oxygen. Head exam is unremarkable. No scleral icterus or corneal arcus noted. Neck is without jugular venous distension, thyromegaly, or carotid bruits. Carotid upstrokes are brisk bilaterally. Lungs diminished breath sounds along with scattered rhonchi and wheezes are throughout the lung davila bilaterally Cardiac exam reveals the PMI to be normally sized and situated. Rhythm is irregular consistent with atrial fibrillation with a controlled rate. First and second heart sounds normal. No murmurs, rubs or gallops. Abdominal exam reveals normal bowel sounds, no masses, no organomegaly and no ao rtic enlargement. Extremities are nonedematous and both femoral and pedal pulses are normal. Examination of the skin revealed no evidence of significant rashes, suspicious appearing nevi or other concerning lesions. Neurologically, the patient is awake and alert and the patient does not have any focal neurological deficit. Cranial nerves are essentially intact. Results - Laboratory Findings CBC and BMP: 02/29/24 06:33 02/29/24 06:33 PT/INR, D-dimer PT 10.7 sec (10.0-12.5) 02/28/24 12:27 INR 1.0 (<1.2) 02/28/24 12:27 Abnormal lab findings: Abnormal Labs 02/28/24 02/28/24 02/28/24 10:03 10:03 15:34 WBC 18.9 H RBC Immature Gran # Neutrophils # 17.4 H Lymphocytes # 0.6 L Eosinophils # Sodium 135 L Glucose Calcium Procalcitonin Urine Appearance Turbid H Urine Nitrite Positive H Ur Leukocyte Esterase Small H Urine WBC 12 H Urine Bacteria Rare H Urine Mucus Rare H Urine Yeast (Budding) Few H 02/29/24 02/29/24 02/29/24 06:33 06:33 06:33 WBC 16.36 H RBC 3.99 L Immature Gran # 0.09 H Neutrophils # 15.02 H Lymphocytes # 0.85 L Eosinophils # 0 L Sodium Glucose 123 H Calcium 8.3 L Procalcitonin 0.53 H Urine Appearance Urine Nitrite Ur Leukocyte Esterase Urine WBC Urine Bacteria Urine Mucus Urine Yeast (Budding) - Diagnostic Findings Chest x-ray: image reviewed Assessment and Plan Plan: Acute exacerbation of chronic severe persistent bronchial asthma. There are new infiltrates of the lung bases bilaterally compared to earlier chest x-rays. Procalcitonin level is mildly elevated and the patient has developed some mild leukocytosis. Rule out bibasilar pneumonia. Rule out a component of mild CHF as the patient is known to have mild impairment of LV function with an ejection fraction of 40 to 45% and mildly elevated proBNP level. Acute on chronic shortness of breath secondary to above CHF with mild impairment of the LV function with an ejection fraction of 40 to 45% mild to moderate mitral regurgitation and moderate degree of pulm hypertension Chronic allergic rhinitis/chronic sinus disease History of severe persistent bronchial asthma maintained on a combination of Trelegy Ellipta, Spiriva, theophylline and Singulair on outpatient basis History of adenocarcinoma of the ascending colon status post colectomy followed by further treatment and the patient's disease has been in remission Incisional hernia, surgically repaired Osteoarthritis of the knee with previous left knee replacement in 2017 Chronic atrial fibrillation, rate is controlled and the patient has been maintained on long-term anticoagulants with Eliquis. Plan Patient is stable on room air oxygen Continue DuoNeb the regiment [id number] Allow the patient to utilize Trelegy Ellipta from home. Meanwhile, while in the hospital, the patient will be given Symbicort. IV Solu-Medrol 60 mg every 6 hours IV Rocephin and Zithromax Viral 4 Plex has been negative Legionella urine antigen is negative Lasix 20 mg IV every 12 hours Continue Singulair Hold theophylline based on her history of chronic a fib Cut down IV fluids to KVO Mucinex for cough and congestion Will continue to follow make further recommendations based on her progress. Will need a follow-up chest x-ray within next 24 to 48 hours.
[2024-02-29] MEDS: methylPREDNISolone SOD SUCCI 125 MG/2 ML VIAL IV SCH (16:26)
[2024-02-29] MEDS: FUROSEMIDE 10 MG/ML 2 ML VIAL IV SCH (16:27)
--- NOTE | 2024-02-29 16:51 | P.PN ---
Subjective Progress Note Date: 02/29/24 Hospital Course: 83 year old F with PMH of AFib, HTN, Asthma, Depression presents to the ED for a constellation of symptoms. He is primarily complaining of productive cough with left upper back pain and left-sided chest pain with deep inspiration. In the ED she underwent extensive evaluation. BP 122/68, HR 88, T 99.8F, RR 22, 95% on RA. CBC, Coag panel, CMP significant for WBC 18.9, Na 135. Lactic acid 1.8. BNP 1770. Trop < 0.012. Amylase 42. Lipase 35. COVID, RSV, Flu neg. EKG A-Flutter with rate of 93. CXR cardiomegaly with diffuse interstitial densities, focal opacity posterior base with possible trace left effusion. Patient was started on Rocephin and Azithromycin and admitted for further workup and management. Pulmonology also consulted. Echocardiogram showed LVEF 45 to 50%, moderate pulmonary hypertension. Subjective: Patient seen and examined at bedside. No acute events overnight. Claims that shortness of breath is slightly improved. Pertinent positives and negatives as discussed above, a complete review of systems was performed and all other systems are negative. Vitals Signs Reviewed. General: Nontoxic, no distress, appears at stated age Derm: Warm, dry Head: Atraumatic, normocephalic, symmetric Eyes: EOMI, no lid lag, anicteric sclera Mouth: No lip lesion, mucus membranes moist Cardiovascular: S1S2 reg, no murmur Lungs: CTA bilateral, no rhonchi, no rales, no accessory muscle use Abdominal: Soft, nontender to palpation, no guarding, no appreciable organomegaly Ext: No gross muscle atrophy, trace peripheral edema, no contractures Neuro: CN II-XI grossly intact, no focal neuro deficits Psych: Alert, oriented, appropriate affect Data Reviewed Today: Pertinent Labs: WBC 16.36, creatinine 0.7, magnesium 1.9, procalcitonin 0.53, proBNP 1700, urinalysis positive for nitrites and leukocyte esterase, urine Legionella negative. Imaging: Echocardiogram showed LVEF 45 to 50%, moderate pulmonary hypertension Assessment and Plan: Active: Acute asthma exacerbation Community-acquired pneumonia Leukocytosis, possibly reactive and steroid-induced Mild systolic CHF exacerbation, EF 45 to 50%, reduced compared to prior -On DuoNebs 4 times daily as needed Atrovent 4 times daily scheduled, Symbicort twice daily scheduled IV Solu-Medrol 60 every 6 hours -Continue IV ceftriaxone 1 g every 24 hours, oral azithromycin 500 mg daily -Previous echocardiogram per cardiology note was in 2022, at that time EF was around 55% -On Lasix IV 20 mg every 12 hours per pulmonology, monitor electrolytes -Cardiology consulted for newly reduced EF -On telemetry Asymptomatic bacteriuria -Continue to monitor Chronic: History of adenocarcinoma of ascending colon status post colectomy Hypertension Chronic allergic rhinitis Chronic A-fib on Eliquis DVT ppx: Eliquis Code status: Full code Anticipated discharge place: Pending clinical course Anticipated discharge time: Pending clinical course Objective - Vital Signs Vital signs: Vital Signs Temp 98.5 F 02/29/24 13:10 Pulse 86 02/29/24 13:10 Resp 18 02/29/24 13:10 BP 122/71 02/29/24 13:10 Pulse Ox 94 L 02/29/24 13:10 FiO2 Intake & Output 02/28/24 02/29/24 02/29/24 18:59 06:59 18:59 Intake Total 540 Balance 540 Weight 81.647 kg Intake: Oral 540 Other: Voiding Method Toilet Toilet # Voids 1 - Labs CBC & Chem 7: 02/29/24 06:33 02/29/24 06:33 Labs: Abnormal Lab Results - Last 24 Hours (Table) 02/29/24 02/29/24 02/29/24 Range/Units 06:33 06:33 06:33 WBC 16.36 H (4.50-10.00) X 10*3/uL RBC 3.99 L (4.10-5.20) X 10*6/uL Immature Gran # 0.09 H (0.00-0.04) X 10*3/uL Neutrophils # 15.02 H (1.80-7.70) X 10*3/uL Lymphocytes # 0.85 L (0.90-5.00) X 10*3/uL Eosinophils # 0 L (0.04-0.35) X 10*3/uL Glucose 123 H (70-110) mg/dL Calcium 8.3 L (8.7-10.3) mg/dL Procalcitonin 0.53 H (0.02-0.50) ng/mL Microbiology - Last 24 Hours (Table) 02/29/24 02:00 Gram Stain - Preliminary Sputum
[2024-03-01 08:29] LABS: Basophils # (A) 0.01 X 10*3/uL (0.00-0.10); Basophils % (A) 0.1 %; Eosinophils # (A) 0 X 10*3/uL (0.04-0.35); Eosinophils % (A) 0 %; HCT 38.8 % (37.2-46.3); HGB 12.9 g/dL (12.0-15.0); Lymphocytes # (A) 0.63 X 10*3/uL (0.90-5.00); Lymphocytes % (A) 7.4 %; MCH 31.1 pg (27.0-32.0); MCHC 33.2 g/dL (32.0-37.0); MCV 93.5 FL (80.0-97.0); Monocytes # (A) 0.05 X 10*3/uL (0.20-1.00); Monocytes % (A) 0.6 %; NRBC Per 100 WBC 0 X 10*3/uL (0.00-0.01); Neutrophils # (A) 7.77 X 10*3/uL (1.80-7.70); Neutrophils % (A) 91.1 %; Platelet Count 200 X 10*3/uL (140-440); RBC 4.15 X 10*6/uL (4.10-5.20); RDW 14.3 % (11.5-14.5); WBC 8.53 X 10*3/uL (4.50-10.00)
[2024-03-01 08:41] LABS: Magnesium 2.1 mg/dL (1.5-2.4)
[2024-03-01 08:51] LABS: BUN/Creat Ratio 23.25 Ratio (12.00-20.00); Blood Urea Nitrogen 18.6 mg/dL (9.0-27.0); Calcium 8.7 mg/dL (8.7-10.3); Carbon Dioxide 24.9 mmol/L (21.6-31.8); Chloride 101 mmol/L (96-109); Glucose 154 mg/dL (70-110); Potassium 4.1 mmol/L (3.5-5.5); Sodium 140 mmol/L (135-145)
--- NOTE | 2024-03-01 11:17 | P.PN ---
Subjective Progress Note Date: 03/01/24 Hospital Course: 83 year old F with PMH of AFib, HTN, Asthma, Depression presents to the ED for a constellation of symptoms. He is primarily complaining of productive cough with left upper back pain and left-sided chest pain with deep inspiration. In the ED she underwent extensive evaluation. BP 122/68, HR 88, T 99.8F, RR 22, 95% on RA. CBC, Coag panel, CMP significant for WBC 18.9, Na 135. Lactic acid 1.8. BNP 1770. Trop < 0.012. Amylase 42. Lipase 35. COVID, RSV, Flu neg. EKG A-Flutter with rate of 93. CXR cardiomegaly with diffuse interstitial densities, focal opacity posterior base with possible trace left effusion. Patient was started on Rocephin and Azithromycin and admitted for further workup and management. Pulmonology also consulted. Echocardiogram showed LVEF 45 to 50%, moderate pulmonary hypertension. Cardiology also consulted for newly reduced EF. Subjective: Patient seen and examined at bedside. No acute events overnight. Claims that shortness of breath is slightly improved. Still having productive cough, no hemoptysis Pertinent positives and negatives as discussed above, a complete review of systems was performed and all other systems are negative. Vitals Signs Reviewed. General: Nontoxic, no distress, appears at stated age Derm: Warm, dry Head: Atraumatic, normocephalic, symmetric Eyes: EOMI, no lid lag, anicteric sclera Mouth: No lip lesion, mucus membranes moist Cardiovascular: S1S2 reg, no murmur Lungs: CTA bilateral, no rhonchi, no rales, no accessory muscle use Abdominal: Soft, nontender to palpation, no guarding, no appreciable org anomegaly Ext: No gross muscle atrophy, trace peripheral edema, no contractures Neuro: CN II-XI grossly intact, no focal neuro deficits Psych: Alert, oriented, appropriate affect Data Reviewed Today: Pertinent Labs: WBC 8.53, hemoglobin 12.9, creatinine 0.8, magnesium 2.1. Imaging: Echocardiogram showed LVEF 45 to 50%, moderate pulmonary hypertension Assessment and Plan: Active: Acute asthma exacerbation Community-acquired pneumonia Leukocytosis, possibly reactive and steroid-induced Mild systolic CHF exacerbation, EF 45 to 50%, reduced compared to prior -On DuoNebs 4 times daily as needed Atrovent 4 times daily scheduled, Symbicort twice daily scheduled IV Solu-Medrol 60 every 6 hours -Continue IV ceftriaxone 1 g every 24 hours, oral azithromycin 500 mg daily -Previous echocardiogram per cardiology note was in 2022, at that time EF was around 55% -On Lasix IV 20 mg every 12 hours per pulmonology, monitor electrolytes -Cardiology consulted for newly reduced EF, increased metoprolol to 50 twice daily, losartan to 25 daily -On telemetry Asymptomatic bacteriuria -Continue to monitor Chronic: History of adenocarcinoma of ascending colon status post colectomy Hypertension Chronic allergic rhinitis Chronic A-fib on Eliquis DVT ppx: Eliquis Code status: Full code Anticipated discharge place: Home Anticipated discharge time: Possibly tomorrow Objective - Vital Signs Vital signs: Vital Signs Temp 98.6 F 03/01/24 07:43 Pulse 88 03/01/24 08:17 Resp 17 03/01/24 08:00 BP 131/80 03/01/24 07:43 Pulse Ox 91 L 03/01/24 07:43 FiO2 Intake & Output 02/29/24 03/01/24 03/01/24 18:59 06:59 18:59 Other: Voiding Method Toilet Toilet Toilet # Voids 4 4 - Labs CBC & Chem 7: 03/01/24 04:47 03/01/24 04:47 Labs: Abnormal Lab Results - Last 24 Hours (Table) 02/29/24 03/01/24 03/01/24 Range/Units 06:33 04:47 04:47 Immature Gran # 0.07 H (0.00-0.04) X 10*3/uL Neutrophils # 7.77 H (1.80-7.70) X 10*3/uL Lymphocytes # 0.63 L (0.90-5.00) X 10*3/uL Monocytes # 0.05 L (0.20-1.00) X 10*3/uL Eosinophils # 0 L (0.04-0.35) X 10*3/uL Anion Gap 14.10 H (4.00-12.00) mmol/L BUN/Creatinine Ratio 23.25 H (12.00-20.00) Ratio Glucose 154 H (70-110) mg/dL Procalcitonin 0.53 H (0.02-0.50) ng/mL Microbiology - Last 24 Hours (Table) 02/28/24 12:27 Blood Culture - Preliminary Blood 02/29/24 02:00 Gram Stain - Preliminary Sputum
--- NOTE | 2024-03-01 11:35 | P.CRDCN ---
History of Present Illness Consult date: 03/01/24 Reason for Consult (text): Newly reduced EF, mild CHF exacerbation History of present illness: This is an 83-year-old female patient of Dr. Bennett with past medical history of paroxysmal atrial fibrillation on Eliquis, hypertension, hyperlipidemia, bronchial asthma under the care of Dr. Hawkins. We have been asked to evaluate the patient for newly reduced EF, mild CHF exacerbation. Patient had a recent hospitalization in mid January at which time she was seen by cardiology for paroxysmal atrial fibrillation with RVR and was eventually rate controlled with increase in beta-mali. Chest pain was present as well which was thought to be muscular skeletal. Patient was discharged home on February 03. She had a follow-up with Dr. Bennett and started on amiodarone with plan for recheck on February 27. If patient remained in atrial fibrillation, electrocardioversion would be done or otherwise consider stress testing. Patient states that on Wednesday she was not feeling very well and was very cold could not seem to get warm all day and actually went to bed with her close on. In the morning she again felt cold and subsequently developed abdominal pain and felt she had food poisoning. She also complained of cough. She had vomiting at least 1 episode. No blood in her stools of vomit or stool. She does states she had lightheade dness and dizziness and shortness of breath. She denies having any chest pain. She denies any recent or frequent history of UTIs. Patient was admitted to the hospital and treated for acute exacerbation of bronchial asthma with possible basilar pneumonia. Patient has maintained in atrial fibrillation and discussed option of cardioversion which we will plan for tomorrow. Heart rate 70328, blood pressure 131/80, pulse ox 91 to 96% on room air. -EKG: Atrial fibrillation at 93 bpm -Chest x-ray: Borderline cardiomegaly with diffuse interstitial densities. Focal opacity posterior base on the lateral view, possible trace left effusion. Patchy pulmonary edema versus pneumonia. -Laboratory studies: Initial WBC 18.9 now 8.5, hemoglobin 12.9 BUN 18 creatinine 0.8, potassium 4.1, procalcitonin 0.53. Influenza A, influenza B, RSV, COVID-19 not detected. Legionella antigen negative -Home cardiac medications: Amiodarone 200 mg twice daily, eliquis 5 mg twice daily, losartan 50 mg daily, magnesium 800 mg at bedtime, metoprolol tartrate 50 mg in the morning and 25 mg in the evening, omega-3. -Cardiac catheterization 2001 revealed no obstructive CAD -Echocardiogram on this admission revealed EF of 45 to 50%, mild LVH, RVSP 44 mmHg, mild to moderate MR, mild to moderate TR. -Echocardiogram performed in the office on 02/14/2024 revealed EF of 45%, mild to moderate mitral and mild tricuspid regurgitation, no pulmonary hypertension. -Lexiscan Cardiolite stress test performed 02/01/2023 revealed EF of 60%, fixed defect of the anterior wall secondary to soft tissue attenuation. No reversible ischemia. Review Of Systems: At the time of my exam: CONSTITUTIONAL: Denies fever or chills. HEENT: Denies blurred vision, vision changes, or eye pain. Denies hemoptysis CARDIOVASCULAR: Denies chest pain. Denies orthopnea. Denies PND. Denies palpitations RESPIRATORY: Denies shortness of breath. GASTROINTESTINAL: Denies abdominal pain. Denies nausea or vomiting. HEMATOLOGIC: Denies bleeding disorders. GENITOURINARY: Denies any blood in urine. SKIN: Denies puritis. Denies rash. Physical examination: Gen: This is an 83-year-old female in no acute distress VS: reviewed HEENT: Head is atraumatic, normocephalic. Pupils equal, round. Sclerae is anicteric. NECK: Supple. No JVD. LUNGS: Diminished breath sounds. No intercostal retractions. HEART: Irregular rate and rhythm. Systolic ejection murmur. ABDOMEN: Soft No tenderness. EXTREMITIES: No pedal edema. No calf tenderness. NEUROLOGICAL: Patient is awake, alert and oriented x3. 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 LAWRENCE Bennett N.p.o. after midnight Further recommendations to follow based upon clinical course Thank you kindly for this consultation. Nurse practitioner note has been reviewed, I agree with documented findings and plan of care. Patient was seen and examined. Past Medical History Past Medical History: Asthma, Cancer, COPD, Eye Disorder, GERD/Reflux, Hyperlipidemia, Hypertension Additional Past Medical History / Comment(s): ARRYTHMIA. macular degeneration rt eye SKIN CA ON BACK. colon polyp-cancer, gallstones, hernia History of Any Multi-Drug Resistant Organisms: MRSA Date of last positivie culture/infection: abdominal incision MDRO Source:: 2015 Past Surgical History: Bladder Surgery, Bowel Resection, Hysterectomy, Joint Replacement Additional Past Surgical History / Comment(s): TOTAL JESSE KNEE. LT GREAT TOE. SINUS SURG. EXC CATARACTS, LT arm surgery repair bicep. Past Anesthesia/Blood Transfusion Reactions: Motion Sickness Past Psychological History: Depression Smoking Status: Never smoker Past Alcohol Use History: Rare Past Drug Use History: None Reported - Past Family History Brother(s) Family Medical History: Cancer Mother Sister(s) Family Medical History: Cancer Sister(s) Family Medical History: Deep Vein Thrombosis (DVT) Medications and Allergies Home Medications Medication Instructions Recorded Confirmed Type Citalopram Hydrobromide 20 mg PO DAILY 03/20/15 02/28/24 History [Citalopram HBr] Ipratropium-Albuterol Nebulize 3 ml INHALATION RT-QID PRN 03/20/15 02/28/24 History [Duoneb 0.5 mg-3 mg/3 ml Soln] Ipratropium/Albuterol Sulfate 1 puff INHALATION RT-QID PRN 03/20/15 02/28/24 History [Combivent Respimat Inhaler] Losartan Potassium 50 mg PO DAILY 03/20/15 02/28/24 History Montelukast [Singulair] 10 mg PO HS 03/20/15 02/28/24 History Omeprazole [PriLOSEC] 20 mg PO DAILY PRN 03/20/15 02/28/24 History Azelastine HCl [Astepro] 2 spray NASAL DAILY 12/01/18 02/28/24 History Biotin [Biotin Disolve] 5,000 mcg PO DAILY 12/01/18 02/28/24 History Levocetirizine Dihydrochloride 5 mg PO DAILY 12/01/18 02/28/24 History [Xyzal] Apixaban [Eliquis] 5 mg PO BID 02/03/24 02/28/24 History Ascorbic Acid [Vitamin C] 1,000 mg PO DAILY 02/03/24 02/28/24 History Cholecalciferol [Vitamin D3 (125 125 mcg PO DAILY 02/03/24 02/28/24 History Mcg = 5000 Iu)] Cyanocobalamin (Vitamin B-12) 1,000 mcg PO DAILY 02/03/24 02/28/24 History [Vitamin B-12] Magnesium Oxide [Mag-Ox] 800 mg PO HS 02/03/24 02/28/24 History [place]-3/Dha/Epa/Fish Oil [Fish Oil 1 cap PO DAILY 02/03/24 02/28/24 History 1,000 mg Softgel] Vitamin B Complex 1 cap PO DAILY 02/03/24 02/28/24 History Zinc Gluconate [Zinc] 50 mg PO BID 02/03/24 02/28/24 History cycloSPORINE 0.05% OPHTH SOLN 1 applicator BOTH EYES BID 02/03/24 02/28/24 History [Restasis] Amiodarone [Cordarone] 200 mg PO BID 02/28/24 02/28/24 History Fluticasone/Umeclidin/Vilanter 1 puff INHALATION RT-DAILY 02/28/24 02/28/24 Hi story [Trelegy Ellipta 200-62.5-25] Metoprolol Tartrate 25 mg PO HS 02/28/24 02/28/24 History Metoprolol Tartrate 50 mg PO DAILY 02/28/24 02/28/24 History Allergies Allergy/AdvReac Type Severity Reaction Status Date / Time aspirin Allergy "BRINGS ON Verified 02/28/24 08:43 ASTHMA ATTACKS" milk Allergy "BLOCKS Verified 02/28/24 08:43 BOWEL" wheat Allergy Cough Verified 02/28/24 08:43 Physical Exam Vitals: Vital Signs Temp Pulse Pulse Resp BP Pulse Ox 03/01/24 08:17 88 03/01/24 08:03 84 03/01/24 07:43 98.6 F 108 H 17 131/80 91 L 03/01/24 01:55 97.9 F 80 20 148/85 96 02/29/24 20:00 18 02/29/24 19:52 99 02/29/24 19:43 95 02/29/24 19:24 98.0 F 95 18 123/76 93 L 02/29/24 13:10 98.5 F 86 18 122/71 94 L 02/29/24 11:58 92 02/29/24 11:44 100 Intake and Output 02/29/24 03/01/24 03/01/24 22:59 06:59 14:59 Other: Voiding Method Toilet # Voids 4 4 Results 03/01/24 04:47 03/01/24 04:47 CBC 02/29/24 03/01/24 Range/Units 06:33 04:47 WBC 16.36 H 8.53 (4.50-10.00) X 10*3/uL RBC 3.99 L 4.15 (4.10-5.20) X 10*6/uL Hgb 12.4 12.9 (12.0-15.0) g/dL Hct 38.2 38.8 (37.2-46.3) % Plt Count 184 200 (140-440) X 10*3/uL Comprehensive Metabolic Panel 02/29/24 03/01/24 Range/Units 06:33 04:47 Sodium 138 140 (135-145) mmol/L Potassium 4.3 4.1 (3.5-5.5) mmol/L Chloride 103 101 (96-109) mmol/L Carbon Dioxide 24.5 24.9 (21.6-31.8) mmol/L BUN 11.2 18.6 (9.0-27.0) mg/dL Creatinine 0.7 0.8 (0.6-1.5) mg/dL Glucose 123 H 154 H (70-110) mg/dL Calcium 8.3 L 8.7 (8.7-10.3) mg/dL Current Medications Generic Name Dose Route Start Last Admin Trade Name Freq PRN Reason Stop Dose Admin Acetaminophen 650 mg 02/28/24 13:35 Acetaminophen Tab 325 Mg Tab PO Q6HR PRN Mild Pain or Fever > 100.5 Albuterol/Ipratropium 3 ml 02/28/24 15:31 Ipratropium-Albuterol 3 Ml Neb INHALATION RT-QID PRN Shortness Of Breath Amiodarone HCl 200 mg 02/28/24 21:00 03/01/24 09:20 Amiodarone 200 Mg Tab PO 200 mg BID ABILIO Administration Apixaban 5 mg 02/28/24 21:00 03/01/24 09:20 Apixaban 5 Mg Tab PO 5 mg BID ABILIO Administration Protocol Artificial Tears 2 drops 02/29/24 16:51 Artificial Tears-Hypromellose Drops 15 Ml Btl BOTH EYES QID PRN Dry Eye(s) Azithromycin 500 mg 02/29/24 09:00 03/01/24 09:19 Azithromycin 500 Mg Tab PO 03/02/24 09:01 500 mg DAILY ABILIO Administration Protocol Budesonide/Formoterol Fumarate 2 puff 02/28/24 20:00 03/01/24 08:03 Symbicort 160-4.5 Mcg Inhaler INHALATION 2 puff RT-BID ABILIO Administration Citalopram Hydrobromide 20 mg 02/29/24 09:00 03/01/24 09:20 Citalopram Hydrobromide 20 Mg Tab PO 20 mg DAILY ABILIO Administration Furosemide 20 mg 02/29/24 13:15 03/01/24 09:19 Furosemide 10 Mg/Ml 2 Ml Vial IV 20 mg Q12HR ABILIO Administration Guaifenesin 600 mg 02/28/24 21:00 03/01/24 09:19 Guaifenesin 600 Mg Tablet.Er PO 600 mg Q12HR ABILIO Administration Sodium Chloride 1,000 mls @ 10 mls/hr 02/28/24 13:45 02/29/24 12:08 Saline 0.9% IV 50 mls/hr .Q24H ABILIO Administration Ceftriaxone Sodium 1 gm/ 50 mls @ 100 mls/hr 02/29/24 09:00 03/01/24 09:20 Sodium Chloride IVPB 100 mls/hr Q24HR ABILIO Administration Protocol Ipratropium [place] 0.5 mg 02/28/24 16:00 03/01/24 08:03 Ipratropium 0.5 Mg/2.5 Ml Nebu INHALATION 0.5 mg RT-QID ABILIO Administration Loratadine 10 mg 02/29/24 09:00 03/01/24 09:19 Loratadine 10 Mg Tab PO 10 mg DAILY ABILIO Administration Losartan Potassium 50 mg 02/29/24 09:00 03/01/24 09:19 Losartan 50 Mg Tab PO 50 mg DAILY ABILIO Administration Melatonin 3 mg 02/28/24 15:33 Melatonin 3 Mg Tablet PO HS PRN Insomnia Methylprednisolone Sodium Succinate 60 mg 02/29/24 13:15 03/01/24 06:12 Methylprednisolone Sod Succi 125 Mg/2 Ml Vial IV 60 mg Q6HR ABILIO Administration Metoprolol Tartrate 25 mg 02/28/24 21:00 02/29/24 21:26 Metoprolol Tartrate 25 Mg Tab PO 25 mg HS ABILIO Administration Metoprolol Tartrate 50 mg 02/29/24 09:00 03/01/24 09:19 Metoprolol Tartrate 50 Mg Tab PO 50 mg DAILY ABILIO Administration Montelukast Sodium 10 mg 02/28/24 21:00 02/29/24 21:26 Montelukast 10 Mg Tab PO 10 mg HS ABILIO Administration Naloxone HCl 0.2 mg 02/28/24 13:35 Naloxone 0.4 Mg/Ml 1 Ml Vial IV Q2M PRN Opioid Reversal Ondansetron HCl 4 mg 02/28/24 13:35 Ondansetron 4 Mg/2 Ml Vial IVP Q8HR PRN Nausea And Vomiting Pantoprazole Sodium 40 mg 02/28/24 15:31 Pantoprazole 40 Mg Tablet PO DAILY PRN GI Upset Intake and Output 02/29/24 03/01/24 03/01/24 22:59 06:59 14:59 Other: Voiding Method Toilet # Voids 4 4 03/01/24 04:47 03/01/24 04:47
[2024-03-01] MEDS: SODIUM CHLORIDE 0.9% 1,000 ML IV SCH (13:29)
--- NOTE | 2024-03-01 14:38 | P.PN ---
Subjective Progress Note Date: 03/01/24 83-year-old female patient with severe persistent bronchial asthma who came into the emergency department with worsening shortness of breath and weakness. The patient developed a dose of symptoms few days back and her condition progressively got worse. She also was experiencing some discomfort and soreness in her chest upon deep breathing and at the same time the patient was actively bronchospastic and wheezy. The patient also reported some periumbilical discomfort, dull stomachache and some limited nausea, no emesis. No dysuria frequency or urgency. No fever. Based on those symptoms, the patient presented to the emergency department. The white cell count was at 16.3 with a hemoglobin 12.4 and a platelet count of 184. Electrolytes were all within normal limits. BUN was 11 with a creatinine of 0.7. The patient's troponins were negative, proBNP level was 1770 and procalcitonin level was at 0.53. I reviewed the chest x-ray and there is some increased interstitial markings and some limited infiltration of the lung bases bilaterally. Echocardiogram was done this morning and it showed mild impairment of the LV function with an estimated ejection fraction of 45 to 50%. The patient has mild to moderate mitral regurgitation, mild to moderate tricuspid regurgitation and moderate degree of pulm hypertension with a right ventricular systolic pressure of around 44 mmHg. Based on that, a pulmonary consultation was requested. Noted the patient has history of chronic atrial fibrillation. EKG was done in the emergency department was consistent with a febrile, controlled rate. She is also known to have history of hypertension, hyperlipidemia and previous history of colon cancer In terms of her bronchial asthma, this patient has history of severe persistent bronchial asthma and she has been treated through our office that she has required on and off prednisone taper to optimize her asthmatic exacerbations. Based on my records, and based on her most recent office visits, her peak flow was 390 whereas her best peak flow was around 450. She remains on a combination of Trelegy Ellipta 1 puff a day, Singulair 10 mg p.o. daily, theophylline and she is also on Tezspire injections. She continues to receive Flonase for symptoms of allergic rhinitis. Noted her serum eosinophil count was low on previous evaluations. She does have chronic sinus disease/allergic rhinitis. She suffers from osteoarthritis. She is also known to have hypertension, hyperlipidemia and previous history of colon cancer. The patient has undergone previous colectomy and her colon cancer has been in remission. Subsequently she developed an incisional hernia that required surgical repair and this was done without any complications. 03/01/2024, patient is feeling slightly improved compared to yesterday. Continues to be bronchospastic and wheezy and congested although somewhat improved. She remains on IV Rocephin and Zithromax. She remains on Lasix 20 mg IV push every 12 hours. She is producing excellent urine output and the patient seems to be in the negative fluid balance. The white cell count is improved and currently down to 8.5 from baseline of 16. Hemoglobin 12.9 and a platelet count is at 200. Electrolytes are all stable with a sodium level of 140 with a potassium level of 4.1, bicarb of 24, BUN is at 18 with a creatinine of 0.8. Procalcitonin level is at 0.53. Legionella urine antigen was negative. Viral 4 Plex has also been negative. The patient was seen by cardiology. Echocardiogram was done on 02/29/2024 indicating a mildly impaired LV function with an ejection fraction of 45 to 50%. There is mild global LV function reduction and the patient has moderate degree of pulm hypertension with a PA pressure of 44. The patient remains in atrial fibrillation. The patient remains on anticoagulation and she is on Eliquis 5 mg p.o. twice a day. Cardiac catheterization from before had shown no coronary artery disease and the most recent cardiac stress test on 02/01/2023 shows no evidence of any reversible ischemia. The patient is being scheduled for a cardioversion by cardiology in a.m. She will be kept n.p.o. after midnight. Metoprolol dose has been increased 1250 mg twice a day. Objective - Vital Signs Vital signs: Vital Signs Temp 98.6 F 03/01/24 07:43 Pulse 84 03/01/24 11:56 Resp 17 03/01/24 08:00 BP 131/80 03/01/24 07:43 Pulse Ox 91 L 03/01/24 07:43 FiO2 Intake & Output 02/29/24 03/01/24 03/01/24 18:59 06:59 18:59 Other: Voiding Method Toilet Toilet Toilet # Voids 4 4 - Exam The patient appeared well nourished and normally developed. Vital signs as documented. Currently the patient on room air oxygen. Head exam is unremarkable. No scleral icterus or corneal arcus noted. Neck is without jugular venous distension, thyromegaly, or carotid bruits. Carotid upstrokes are brisk bilaterally. Lungs diminished breath sounds along with scattered rhonchi and wheezes are throughout the lung davila bilaterally Cardiac exam reveals the PMI to be normally sized and situated. Rhythm is irregular consistent with atrial fibrillation with a controlled rate. First and second heart sounds normal. No murmurs, rubs or gallops. Abdominal exam reveals normal bowel sounds, no masses, no organomegaly and no aortic enlargement. Extremities are nonedematous and both femoral and pedal pulses are normal. Examination of the skin revealed no evidence of significant rashes, suspicious appearing nevi or other concerning lesions. Neurologically, the patient is awake and alert and the patient does not have any focal neurological deficit. Cranial nerves are essentially intact. - Labs CBC & Chem 7: 03/01/24 04:47 03/01/24 04:47 Labs: Abnormal Lab Results - Last 24 Hours (Table) 03/01/24 03/01/24 Range/Units 04:47 04:47 Immature Gran # 0.07 H (0.00-0.04) X 10*3/uL Neutrophils # 7.77 H (1.80-7.70) X 10*3/uL Lymphocytes # 0.63 L (0.90-5.00) X 10*3/uL Monocytes # 0.05 L (0.20-1.00) X 10*3/uL Eosinophils # 0 L (0.04-0.35) X 10*3/uL Anion Gap 14.10 H (4.00-12.00) mmol/L BUN/Creatinine Ratio 23.25 H (12.00-20.00) Ratio Glucose 154 H (70-110) mg/dL Microbiology - Last 24 Hours (Table) 02/29/24 02:00 Gram Stain - Preliminary Sputum Sputum Culture - Preliminary 02/28/24 12:27 Blood Culture - Preliminary Blood Assessment and Plan Plan: Acute exacerbation of chronic severe persistent bronchial asthma. There are new infiltrates of the lung bases bilaterally compared to earlier chest x-rays. Procalcitonin level is mildly elevated and the patient has developed some mild leukocytosis. Rule out bibasilar pneumonia. Rule out a component of mild CHF as the patient is known to have mild impairment of LV function with an ejection fraction of 40 to 45% and mildly elevated proBNP level. The procalcitonin level is at 0.5. Pneumonia cannot be completely ruled out. Acute on chronic shortness of breath secondary to above, improving CHF with mild impairment of the LV function with an ejection fraction of 40 to 45% mild to moderate mitral regurgitation and moderate degree of pulm hypertension Chronic allergic rhinitis/chronic sinus disease History of severe persistent bronchial asthma maintained on a combination of Trelegy Ellipta, Spiriva, theophylline and Singulair on outpatient basis History of adenocarcinoma of the ascending colon status post colectomy followed by further treatment and the patient's disease has been in remission Incisional hernia, surgically repaired Osteoarthritis of the knee with previous left knee replacement in 2017 Chronic atrial fibrillation, rate is controlled and the patient has been maintained on long-term anticoagulants with Eliquis. Acute leukocytosis, improving and the white cell count is dropped down to 8 Plan Patient is stable on room air oxygen Continue DuoNeb the regiment [id number] Allow the patient to utilize Trelegy Ellipta from home. Meanwhile, while in the hospital, the patient will be given Symbicort. IV Solu-Medrol 60 mg every 6 hours IV Rocephin and Zithromax Viral 4 Plex has been negative Legionella urine antigen is negative Procalcitonin level is at 0.5 White cell count is improving Lasix 20 mg IV every 12 hours Continue Singulair Hold theophylline based on her history of chronic a fib Cut down IV fluids to KVO Mucinex for cough and congestion Metoprolol dose was modified to 100 mg twice a day Continue anticoagulation with Xarelto Cardioversion by cardiology in a.m. and the patient is kept n.p.o. after midnight Will continue to follow make further recommendations based on her progress. Will need a follow-up chest x-ray within next 24 to 48 hours.
[2024-03-01] MEDS: METOPROLOL TARTRATE 50 MG TAB PO SCH (22:00)
[2024-03-02] MEDS: LOSARTAN 25 MG TAB PO SCH (09:29)
[2024-03-02 09:40] LABS: BUN/Creat Ratio 29.38 Ratio (12.00-20.00); Blood Urea Nitrogen 23.5 mg/dL (9.0-27.0); Calcium 8.6 mg/dL (8.7-10.3); Chloride 98 mmol/L (96-109); Glucose 141 mg/dL (70-110); Potassium 3.9 mmol/L (3.5-5.5); Sodium 137 mmol/L (135-145)
[2024-03-02] MEDS: SODIUM CHLORIDE 0.9% 1,000 ML IV ONE (09:53)
[2024-03-02] MEDS ORDERED: PROPOFOL 10 MG/ML 20 ML VIAL IV ONE (09:59)
--- NOTE | 2024-03-02 11:36 | P.PN ---
Subjective Progress Note Date: 03/02/24 Reason for Consult (text): Newly reduced EF, mild CHF exacerbation History of present illness: This is an 83-year-old female patient of Dr. Bennett with past medical history of paroxysmal atrial fibrillation on Eliquis, hypertension, hyperlipidemia, bro nchial asthma under the care of Dr. Hawkins. We have been asked to evaluate the patient for newly reduced EF, mild CHF exacerbation. Patient had a recent hospitalization in mid January at which time she was seen by cardiology for paroxysmal atrial fibrillation with RVR and was eventually rate controlled with increase in beta-mali. Chest pain was present as well which was thought to be muscular skeletal. Patient was discharged home on February 03. She had a follow-up with Dr. Bennett and started on amiodarone with plan for recheck on February 27. If patient remained in atrial fibrillation, electrocardioversion would be done or otherwise consider stress testing. Patient states that on S unday she was not feeling very well and was very cold could not seem to get warm all day and actually went to bed with her close on. In the morning she again felt cold and subsequently developed abdominal pain and felt she had food poisoning. She also complained of cough. She had vomiting at least 1 episode. No blood in her stools of vomit or stool. She does states she had lightheadedness and dizziness and shortness of breath. She denies having any chest pain. She denies any recent or frequent history of UTIs. Patient was admitted to the hospital and treated for acute exacerbation of bronchial asthma with possible basilar pneumonia. Patient has maintained in atrial fibrillation and discussed option of cardioversion which we will plan for tomorrow. Heart rate 43649, blood pressure 131/80, pulse ox 91 to 96% on room air. -EKG: Atrial fibrillation at 93 bpm -Chest x-ray: Borderline cardiomegaly with diffuse interstitial densities. Focal opacity posterior base on the lateral view, possible trace left effusion. Patchy pulmonary edema versus pneumonia. -Laboratory studies: Initial WBC 18.9 now 8.5, hemoglobin 12.9 BUN 18 creatinine 0.8, potassium 4.1, procalcitonin 0.53. Influenza A, influenza B, RSV, COVID-19 not detected. Legionella antigen negative -Home cardiac medications: Amiodarone 200 mg twice daily, eliquis 5 mg twice daily, losartan 50 mg daily, magnesium 800 mg at bedtime, metoprolol tartrate 50 mg in the morning and 25 mg in the evening, omega-3. -Cardiac catheterization 2001 revealed no obstructive CAD -Echocardiogram on this admission revealed EF of 45 to 50%, mild LVH, RVSP 44 mmHg, mild to moderate MR, mild to moderate TR. -Echocardiogram performed in the office on 02/14/2024 revealed EF of 45%, mild to moderate mitral and mild tricuspid regurgitation, no pulmonary hypertension. -Lexiscan Cardiolite stress test performed 02/01/2023 revealed EF of 60%, fixed defect of the anterior wall secondary to soft tissue attenuation. No reversible ischemia. 03/02/2024 Patient seen and examined. She is scheduled for cardioversion today at 10 AM. Patient denies having chest pain, no palpitations. She remains in atrial fi brillation this morning. Blood pressure 133/79, heart rate 62, pulse ox 91% on room air. Physical examination: Gen: This is an 83-year-old female in no acute distress VS: reviewed HEENT: Head is atraumatic, normocephalic. Pupils equal, round. Sclerae is anicteric. NECK: Supple. No JVD. LUNGS: Diminished breath sounds. No intercostal retractions. HEART: Irregular rate and rhythm. Systolic ejection murmur. ABDOMEN: Soft No tenderness. EXTREMITIES: No pedal edema. No calf tenderness. NEUROLOGICAL: Patient is awake, alert and oriented x3. 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 Twin Alford. Further recommendations to follow based upon clinical course Nurse practitioner note has been reviewed, I agree with documented findings and plan of care. Patient was seen and examined. Objective - Vital Signs Vital signs: Vital Signs Temp 97.9 F 03/02/24 01:26 Pulse 62 03/02/24 06:38 Resp 14 03/02/24 01:26 BP 133/79 03/02/24 06:38 Pulse Ox 91 L 03/02/24 01:26 FiO2 Intake & Output 03/01/24 03/02/24 03/02/24 18:59 06:59 18:59 Intake Total 1440 240 Balance 1440 240 Intake: Oral 1440 240 Other: Voiding Method Toilet Toilet # Voids 2 - Labs CBC & Chem 7: 03/01/24 04:47 03/02/24 03:37 Labs: Microbiology - Last 24 Hours (Table) 02/28/24 12:27 Blood Culture - Preliminary Blood 02/29/24 02:00 Gram Stain - Preliminary Sputum Sputum Culture - Preliminary
--- NOTE | 2024-03-02 14:55 | P.PN ---
Subjective Progress Note Date: 03/02/24 Hospital Course: 83 year old F with PMH of AFib, HTN, Asthma, Depression presents to the ED for a constellation of symptoms. He is primarily complaining of productive cough with left upper back pain and left-sided chest pain with deep inspiration. In the ED she underwent extensive evaluation. BP 122/68, HR 88, T 99.8F, RR 22, 95% on RA. CBC, Coag panel, CMP significant for WBC 18.9, Na 135. Lactic acid 1.8. BNP 1770. Trop < 0.012. Amylase 42. Lipase 35. COVID, RSV, Flu neg. EKG A-Flutter with rate of 93. CXR cardiomegaly with diffuse interstitial densities, focal opacity posterior base with possible trace left effusion. Patient was started on Rocephin and Azithromycin and admitted for further workup and management. Pulmonology also consulted. Echocardiogram showed LVEF 45 to 50%, moderate pulmonary hypertension. Cardiology also consulted for newly reduced EF, likely in the setting of atrial fibrillation. Patient to undergo cardioversion today Subjective: Patient seen and examined at bedside. No acute events overnight. Claims that shortness of breath is improving, no hemoptysis. Pertinent positives and negatives as discussed above, a complete review of systems was performed and all other systems are negative. Vitals Signs Reviewed. General: Nontoxic, no distress, appears at stated age Derm: Warm, dry Head: Atraumatic, normocephalic, symmetric Eyes: EOMI, no lid lag, anicteric sclera Mouth: No lip lesion, mucus membranes moist Cardiovascular: S1S2 reg, no murmur Lungs: CTA bilateral, no rhonchi, no rales, no accessory muscle use Abdominal: Soft, nontender to palpation, no guarding, no appreciable organomegaly Ext: No gross muscle atrophy, trace peripheral edema, no contractures Neuro: CN II-XI grossly intact, no focal neuro deficits Psych: Alert, oriented, appropriate affect Data Reviewed Today: Pertinent Labs: Potassium 3.9, creatinine 0.8, magnesium 2 Imaging: No new imaging Assessment and Plan: Active: Acute asthma exacerbation Community-acquired pneumonia Leukocytosis, possibly reactive and steroid-induced, resolved -On DuoNebs 4 times daily as needed Atrovent 4 times daily scheduled, Symbicort twice daily scheduled, IV Solu-Medrol 60 every 6 hours -Continue IV ceftriaxone 1 g every 24 hours, and status post oral azithromycin 500 mg daily -On room air -Pulmonology following Paroxysmal atrial fibrillation Mild systolic CHF exacerbation, EF 45 to 50%, reduced compared to prior -HFrEF likely in the setting of atrial fibrillation -Pending cardioversion today -Cardiology note reviewed,, continue metoprolol 50 twice daily, Eliquis 5 twice daily, amiodarone 200 twice daily -Continue Lasix IV 20 mg every 12 hours, monitor electrolytes -Continue telemetry Asymptomatic bacteriuria -Continue to monitor Chronic: History of adenocarcinoma of ascending colon status post colectomy Hypertension Chronic allergic rhinitis Chronic A-fib on Eliquis DVT ppx: Eliquis Code status: Full code Anticipated discharge place: Home Anticipated discharge time: Possibly tomorrow Objective - Vital Signs Vital signs: Vital Signs Temp 97.9 F 03/02/24 01:26 Pulse 58 L 03/02/24 12:03 Resp 16 03/02/24 12:03 BP 114/59 03/02/24 12:03 Pulse Ox 92 L 03/02/24 12:03 FiO2 Intake & Output 03/01/24 03/02/24 03/02/24 18:59 06:59 18:59 Intake Total 1440 240 0 Balance 1440 240 0 Intake: IV 0 Oral 1440 240 Other: Voiding Method Toilet Toilet Toilet # Voids 2 1 - Labs CBC & Chem 7: 03/01/24 04:47 03/02/24 03:37 Labs: Abnormal Lab Results - Last 24 Hours (Table) 03/02/24 Range/Units 03:37 BUN/Creatinine Ratio 29.38 H (12.00-20.00) Ratio Glucose 141 H (70-110) mg/dL Calcium 8.6 L (8.7-10.3) mg/dL Microbiology - Last 24 Hours (Table) 02/29/24 02:00 Gram Stain - Final Sputum Sputum Culture - Final 02/28/24 12:27 Blood Culture - Preliminary Blood
[2024-03-02] MEDS ORDERED: LIDOCAINE 1% (10MG/ML) FOR IV START INTRADERMA PRN (15:00)
--- NOTE | 2024-03-02 17:12 | P.PN ---
Subjective Progress Note Date: 03/02/24 83-year-old female patient with severe persistent bronchial asthma who came into the emergency department with worsening shortness of breath and weakness. The patient developed a dose of symptoms few days back and her condition progressively got worse. She also was experiencing some discomfort and soreness in her chest upon deep breathing and at the same time the patient was actively bronchospastic and wheezy. The patient also reported some periumbilical discomfort, dull stomachache and some limited nausea, no emesis. No dysuria frequency or urgency. No fever. Based on those symptoms, the patient presented to the emergency department. The white cell count was at 16.3 with a hemoglobin 12.4 and a platelet count of 184. Electrolytes were all within normal limits. BUN was 11 with a creatinine of 0.7. The patient's troponins were negative, proBNP level was 1770 and procalcitonin level was at 0.53. I reviewed the chest x-ray and there is some increased interstitial markings and some limited infiltration of the lung bases bilaterally. Echocardiogram was done this morning and it showed mild impairment of the LV function with an estimated ejection fraction of 45 to 50%. The patient has mild to moderate mitral regurgitation, mild to moderate tricuspid regurgitation and moderate degree of pulm hypertension with a right ventricular systolic pressure of around 44 mmHg. Based on that, a pulmonary consultation was requested. Noted the patient has history of chronic atrial fibrillation. EKG was done in the emergency department was consistent with a febrile, controlled rate. She is also known to have history of hypertension, hyperlipidemia and previous history of colon cancer In terms of her bronchial asthma, this patient has history of severe persistent bronchial asthma and she has been treated through our office that she has required on and off prednisone taper to optimize her asthmatic exacerbations. Based on my records, and based on her most recent office visits, her peak flow was 390 whereas her best peak flow was around 450. She remains on a combination of Trelegy Ellipta 1 puff a day, Singulair 10 mg p.o. daily, theophylline and she is also on Tezspire injections. She continues to receive Flonase for symptoms of allergic rhinitis. Noted her serum eosinophil count was low on previous evaluations. She does have chronic sinus disease/allergic rhinitis. She suffers from osteoarthritis. She is also known to have hypertension, hyperlipidemia and previous history of colon cancer. The patient has undergone previous colectomy and her colon cancer has been in remission. Subsequently she developed an incisional hernia that required surgical repair and this was done without any complications. 03/01/2024, patient is feeling slightly improved compared to yesterday. Continues to be bronchospastic and wheezy and congested although somewhat improved. She remains on IV Rocephin and Zithromax. She remains on Lasix 20 mg IV push every 12 hours. She is producing excellent urine output and the patient seems to be in the negative fluid balance. The white cell count is improved and currently down to 8.5 from baseline of 16. Hemoglobin 12.9 and a platelet count is at 200. Electrolytes are all stable with a sodium level of 140 with a potassium level of 4.1, bicarb of 24, BUN is at 18 with a creatinine of 0.8. Procalcitonin level is at 0.53. Legionella urine antigen was negative. Viral 4 Plex has also been negative. The patient was seen by cardiology. Echocardiogram was done on 02/29/2024 indicating a mildly impaired LV function with an ejection fraction of 45 to 50%. There is mild global LV function reduction and the patient has moderate degree of pulm hypertension with a PA pressure of 44. The patient remains in atrial fibrillation. The patient remains on anticoagulation and she is on Eliquis 5 mg p.o. twice a day. Cardiac catheterization from before had shown no coronary artery disease and the most recent cardiac stress test on 02/01/2023 shows no evidence of any reversible ischemia. The patient is being scheduled for a cardioversion by cardiology in a.m. She will be kept n.p.o. after midnight. Metoprolol dose has been increased 1250 mg twice a day. On 03/02/2024, the patient is being seen for a follow-up. The patient is currently being treated for an acute asthma exacerbation and possible pneumonia. She also had chronic atrial fibrillation. The plan is for cardioversion to be done this morning at 10 AM. No chest pain. She remains in atrial fibrillation. Hemodynamically stable. Treatment remains unchanged. She is n.p.o. in regards to upcoming cardioversion. Electrolytes are all within normal limits. BUN is 23 with a creatinine of 0.8. The patient remains on Symbicort, DuoNeb updrafts, IV Solu-Medrol, Lasix 20 mg IV every 12 hours. IV fluids are currently at KVO. She remains on IV Rocephin. Sputum culture has been negative. Objective - Vital Signs Vital signs: Vital Signs Temp 97.9 F 03/02/24 01:26 Pulse 60 03/02/24 15:31 Resp 16 03/02/24 12:03 BP 114/59 03/02/24 12:03 Pulse Ox 92 L 03/02/24 12:03 FiO2 Intake & Output 03/01/24 03/02/24 03/02/24 18:59 06:59 18:59 Intake Total 1440 240 0 Balance 1440 240 0 Intake: IV 0 Oral 1440 240 Other: Voiding Method Toilet Toilet Toilet # Voids 2 1 - Exam The patient appeared well nourished and normally developed. Vital signs as documented. Currently the patient on room air oxygen. Head exam is unremarkable. No scleral icterus or corneal arcus noted. Neck is without jugular venous distension, thyromegaly, or carotid bruits. Carotid upstrokes are brisk bilaterally. Lungs diminished breath sounds along with scattered rhonchi and wheezes are throughout the lung davila bilaterally Cardiac exam reveals the PMI to be normally sized and situated. Rhythm is irregular consistent with atrial fibrillation with a controlled rate. First and second heart sounds normal. No murmurs, rubs or gallops. Abdominal exam reveals normal bowel sounds, no masses, no organomegaly and no aortic enlargement. Extremities are nonedematous and both femoral and pedal pulses are normal. Examination of the skin revealed no evidence of significant rashes, suspicious appearing nevi or other concerning lesions. Neurologically, the patient is awake and alert and the patient does not have any focal neurological deficit. Cranial nerves are essentially intact. - Labs CBC & Chem 7: 03/01/24 04:47 03/02/24 03:37 Labs: Abnormal Lab Results - Last 24 Hours (Table) 03/02/24 Range/Units 03:37 BUN/Creatinine Ratio 29.38 H (12.00-20.00) Ratio Glucose 141 H (70-110) mg/dL Calcium 8.6 L (8.7-10.3) mg/dL Microbiology - Last 24 Hours (Table) 02/28/24 12:27 Blood Culture - Preliminary Blood 02/29/24 02:00 Gram Stain - Final Sputum Sputum Culture - Final Assessment and Plan Plan: Acute exacerbation of chronic severe persistent bronchial asthma. There are new infiltrates of the lung bases bilaterally compared to earlier chest x-rays. Procalcitonin level is mildly elevated and the patient has developed some mild leukocytosis. Rule out bibasilar pneumonia. Rule out a component of mild CHF as the patient is known to have mild impairment of LV function with an ejection fraction of 40 to 45% and mildly elevated proBNP level. The procalcitonin level is at 0.5. Pneumonia cannot be completely ruled out. Acute on chronic shortness of breath secondary to above, improving CHF with mild impairment of the LV function with an ejection fraction of 40 to 45% mild to moderate mitral regurgitation and moderate degree of pulm hypertension Chronic allergic rhinitis/chronic sinus disease History of severe persistent bronchial asthma maintained on a combination of Trelegy Ellipta, Spiriva, theophylline and Singulair on outpatient basis History of adenocarcinoma of the ascending colon status post colectomy followed by further treatment and the patient's disease has been in remission Incisional hernia, surgically repaired Osteoarthritis of the knee with previous left knee replacement in 2017 Chronic atrial fibrillation, rate is controlled and the patient has been maintained on long-term anticoagulants with Eliquis. Acute leukocytosis, improving and the white cell count is dropped down to 8 Plan Clinically stable Remains on room air oxygen Continue DuoNeb the regiment [id number] Allow the patient to utilize Trelegy Ellipta from home. Meanwhile, while in the hospital, the patient will be given Symbicort. IV Solu-Medrol 60 mg every 6 hours IV Rocephin Viral 4 Plex has been negative Legionella urine antigen is negative Procalcitonin level is at 0.5 White cell count is improving Lasix 20 mg IV every 12 hours Continue Singulair Hold theophylline based on her history of chronic a fib Cut down IV fluids to KVO Mucinex for cough and congestion Metoprolol dose was modified to 100 mg twice a day Continue anticoagulation with Xarelto Cardioversion by cardiology in a.m. and based on that the patient has been kept n.p.o. Will continue to follow make further recommendations based on her progress. Will obtain a follow-up chest x-ray in a.m.
[2024-03-02] MEDS: ARTIFICIAL TEARS-HYPROMELLOSE DROPS 15 ML BTL BOTH EYES PRN (17:50)
[2024-03-02] MEDS: LACTATED RINGERS 1,000 ML IV SCH (18:13)
--- NOTE | 2024-03-03 08:28 | XR ---
EXAMINATION TYPE: XR chest 1V DATE OF EXAM: 03/03/2024 COMPARISON: 02/28/2024 CLINICAL INDICATION: Female, 83 years old with history of Pneumonia; TECHNIQUE: Single frontal view of the chest is obtained. FINDINGS: Heart mildly enlarged. Patchy bilateral interstitial opacities persist without significant change. No pleural effusion. Suture anchor left humeral head from prior cuff repair. IMPRESSION: Similar bilateral patchy interstitial opacities. [facility], Workstation: [id number], 03/03/2024 8:26 AM
--- NOTE | 2024-03-03 11:44 | P.PN ---
Subjective Progress Note Date: 03/03/24 History of present illness: This is an 83-year-old female patient of Dr. Bennett with past medical history of paroxysmal atrial fibrillation on Eliquis, hypertension, hyperlipidemia, bronchial asthma under the care of Dr. Hawkins. We have been asked to evaluate the patient for newly reduced EF, mild CHF exacerbation. Patient had a recent hospitalization in mid January at which time she was seen by cardiology for paroxysmal atrial fibrillation with RVR and was eventually rate controlled with increase in beta-mali. Chest pain was present as well which was thought to be muscular skeletal. Patient was discharged home on February 03. She had a follow-up with Dr. Bennett and started on amiodarone with plan for recheck on February 27. If patient remained in atrial fibrillation, electrocardioversion would be done or otherwise consider stress testing. Patient states that on Wednesday she was not feeling very well and was very cold could not seem to get warm all day and actually went to bed with her close on. In the morning she again felt cold and subsequently developed abdominal pain and felt she had food poisoning. She also complained of cough. She had vomiting at least 1 episode. No blood in her stools of vomit or stool. She does states she had lightheadedness and dizziness and shortness of breath. She denies having any chest pain. She denies any recent or frequent history of UTIs. Patient was admitted to the hospital and treated for acute exacerbation of bronchial asthma with possible basilar pneumonia. Patient has maintained in atrial fibrillation and discussed option of cardioversion which we will plan for tomorrow. Heart rate 76056, blood pressure 131/80, pulse ox 91 to 96% on room air. -EKG: Atrial fibrillation at 93 bpm -Chest x-ray: Borderline cardiomegaly with diffuse interstitial densities. Focal opacity posterior base on the lateral view, possible trace left effusion. Patchy pulmonary edema versus pneumonia. -Laboratory studies: Initial WBC 18.9 now 8.5, hemoglobin 12.9 BUN 18 creatinine 0.8, potassium 4.1, procalcitonin 0.53. Influenza A, influenza B, RSV, COVID-19 not detected. Legionella antigen negative -Home cardiac medications: Amiodarone 200 mg twice daily, eliquis 5 mg twice daily, losartan 50 mg daily, magnesium 800 mg at bedtime, metoprolol tartrate 50 mg in the morning and 25 mg in the evening, omega-3. -Cardiac catheterization 2001 revealed no obstructive CAD -Echocardiogram on this admission revealed EF of 45 to 50%, mild LVH, RVSP 44 mmHg, mild to moderate MR, mild to moderate TR. -Echocardiogram performed in the office on 02/14/2024 revealed EF of 45%, mild to moderate mitral and mild tricuspid regurgitation, no pulmonary hypertension. -Lexiscan Cardiolite stress test performed 02/01/2023 revealed EF of 60%, fixed defect of the anterior wall secondary to soft tissue attenuation. No reversible ischemia. 03/02/2024 Patient seen and examined. She is scheduled for cardioversion today at 10 AM. Patient denies having chest pain, no palpitations. She remains in atrial fibrillation this morning. Blood pressure 133/79, heart rate 62, pulse ox 91% on room air. 03/03/2024 She is doing well status post KIMMY cardioversion yesterday with Dr. Murcia. She remains in sinus bradycardia. She does feel better with improvement of shortness of breath. No chest pain. Physical examination: Gen: This is an 83-year-old female in no acute distress VS: reviewed HEENT: Head is atraumatic, normocephalic. Pupils equal, round. Sclerae is anicteric. NECK: Supple. No JVD. LUNGS: Diminished breath sounds with scattered wheeze. No intercostal retractions. HEART: Regular rhythm, bradycardia. Systolic ejection murmur. ABDOMEN: Soft No tenderness. EXTREMITIES: No pedal edema. No calf tenderness. NEUROLOGICAL: Patient is awake, alert and oriented x3. 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 daily at discharge. Also recommend Lasix 40 mg daily at discharge. Okay to discharge home from cardiology standpoint. Follow- up in office with Dr. Bennett in approximately 1 week. Nurse practitioner note has been reviewed, I agree with documented findings and plan of care. Patient was seen and examined. Objective - Vital Signs Vital signs: Vital Signs Temp 97.5 F L 03/03/24 08:00 Pulse 58 L 03/03/24 09:22 Resp 18 03/03/24 08:00 BP 135/77 03/03/24 08:00 Pulse Ox 97 01/10/25 08:00 FiO2 Intake & Output 03/02/24 03/03/24 03/03/24 18:59 06:59 18:59 Intake Total 240 1080 118 Balance 240 1080 118 Weight 79.6 kg Intake: IV 0 Oral 240 1080 118 Other: Voiding Method Toilet Toilet Toilet # Voids 1 1 - Labs CBC & Chem 7: 03/01/24 04:47 03/02/24 03:37 Labs: Microbiology - Last 24 Hours (Table) 02/28/24 12:27 Blood Culture - Preliminary Blood 02/29/24 02:00 Gram Stain - Final Sputum Sputum Culture - Final
--- NOTE | 2024-03-03 13:31 | P.PN ---
Subjective Progress Note Date: 03/03/24 Pt is doing well, now on room air. Cleared by cardiology. Pending pulmonology clearance. Gen: In NAD, non-toxic HEENT: normocephalic, atraumatic, hearing acuity is intant, mucous membranes moist CVS: perfusing all extremities well, no pitting edema, Respiratory: symmetric chest expansion, no accessory muscle use, GI: soft, NTTP, ND, : no suprapubic tenderness, no CVA tenderness MSK/Derm: no rashes, cyanosis Neuro: CN II-XII intact, no motor weakness, Psych: cooperative, euthymic mood, judgment and insight is intact Hospital Course: 83 year old F with PMH of AFib, HTN, Asthma, Depression presents to the ED for a constellation of symptoms. He is primarily complaining of productive cough with left upper back pain and left-sided chest pain with deep inspiration. In the ED she underwent extensive evaluation. BP 122/68, HR 88, T 99.8F, RR 22, 95% on RA. CBC, Coag panel, CMP significant for WBC 18.9, Na 135. Lactic acid 1.8. BNP 1770. Trop < 0.012. Amylase 42. Lipase 35. COVID, RSV, Flu neg. EKG A-Flutter with rate of 93. CXR cardiomegaly with diffuse interstitial densities, focal opacity posterior base with possible trace left effusion. Patient was started on Rocephin and Azithromycin and admitted for further workup and management. Pulmonology also consulted. Echocardiogram showed LVEF 45 to 50%, moderate pulmonary hypertension. Cardiology also consulted for newly reduced EF, likely in the setting of atrial fibrillation. Patient to underwent cardioversion on 03/02. Assessment and Plan: Active: Acute asthma exacerbation Community-acquired pneumonia Leukocytosis, possibly reactive and steroid-induced, resolved -On DuoNebs 4 times daily as needed Atrovent 4 times daily scheduled, Symbicort twice daily scheduled, IV Solu-Medrol 60 every 6 hours -Completed 5 days of IV ceftriaxone 1 g every 24 hours, and status post oral azithromycin 500 mg daily -On room air -Pulmonology following Paroxysmal atrial fibrillation Mild systolic CHF exacerbation, EF 45 to 50%, reduced compared to prior -HFrEF likely in the setting of atrial fibrillation -Pending cardioversion today -Cardiology note reviewed,, continue metoprolol 50 twice daily, Eliquis 5 twice daily, amiodarone 200 twice daily -Continue Lasix IV 20 mg every 12 hours, monitor electrolytes -Continue telemetry Asymptomatic bacteriuria -Continue to monitor Chronic: History of adenocarcinoma of ascending colon status post colectomy Hypertension Chronic allergic rhinitis Chronic A-fib on Eliquis DVT ppx: Eliquis Code status: Full code Anticipated discharge place: Home Anticipated discharge time: Possibly tomorrow Objective - Vital Signs Vital signs: Vital Signs Temp 97.5 F L 03/03/24 08:00 Pulse 60 03/03/24 12:04 Resp 18 03/03/24 08:00 BP 135/77 03/03/24 08:00 Pulse Ox 97 03/03/24 08:00 FiO2 Intake & Output 03/02/24 03/03/24 03/03/24 18:59 06:59 18:59 Intake Total 240 1080 118 Balance 240 1080 118 Weight 79.6 kg Intake: IV 0 Oral 240 1080 118 Other: Voiding Method Toilet Toilet Toilet # Voids 1 1 - Labs CBC & Chem 7: 03/01/24 04:47 03/02/24 03:37 Labs: Microbiology - Last 24 Hours (Table) 02/28/24 12:27 Blood Culture - Preliminary Blood 02/29/24 02:00 Gram Stain - Final Sputum Sputum Culture - Final
--- NOTE | 2024-03-03 15:22 | P.PN ---
Subjective Progress Note Date: 03/03/24 83-year-old female patient with severe persistent bronchial asthma who came into the emergency department with worsening shortness of breath and weakness. The patient developed a dose of symptoms few days back and her condition progressively got worse. She also was experiencing some discomfort and soreness in her chest upon deep breathing and at the same time the patient was actively bronchospastic and wheezy. The patient also reported some periumbilical discomfort, dull stomachache and some limited nausea, no emesis. No dysuria frequency or urgency. No fever. Based on those symptoms, the patient presented to the emergency department. The white cell count was at 16.3 with a hemoglobin 12.4 and a platelet count of 184. Electrolytes were all within normal limits. BUN was 11 with a creatinine of 0.7. The patient's troponins were negative, proBNP level was 1770 and procalcitonin level was at 0.53. I reviewed the chest x-ray and there is some increased interstitial markings and some limited infiltration of the lung bases bilaterally. Echocardiogram was done this morning and it showed mild impairment of the LV function with an estimated ejection fraction of 45 to 50%. The patient has mild to moderate mitral regurgitation, mild to moderate tricuspid regurgitation and moderate degree of pulm hypertension with a right ventricular systolic pressure of around 44 mmHg. Based on that, a pulmonary consultation was requested. Noted the patient has history of chronic atrial fibrillation. EKG was done in the emergency department was consistent with a febrile, controlled rate. She is also known to have history of hypertension, hyperlipidemia and previous history of colon cancer In terms of her bronchial asthma, this patient has history of severe persistent bronchial asthma and she has been treated through our office that she has required on and off prednisone taper to optimize her asthmatic exacerbations. Based on my records, and based on her most recent office visits, her peak flow was 390 whereas her best peak flow was around 450. She remains on a combination of Trelegy Ellipta 1 puff a day, Singulair 10 mg p.o. daily, theophylline and she is also on Tezspire injections. She continues to receive Flonase for symptoms of allergic rhinitis. Noted her serum eosinophil count was low on previous evaluations. She does have chronic sinus disease/allergic rhinitis. She suffers from osteoarthritis. She is also known to have hypertension, hyperlipidemia and previous history of colon cancer. The patient has undergone previous colectomy and her colon cancer has been in remission. Subsequently she developed an incisional hernia that required surgical repair and this was done without any complications. 03/01/2024, patient is feeling slightly improved compared to yesterday. Continues to be bronchospastic and wheezy and congested although somewhat improved. She remains on IV Rocephin and Zithromax. She remains on Lasix 20 mg IV push every 12 hours. She is producing excellent urine output and the patient seems to be in the negative fluid balance. The white cell count is improved and currently down to 8.5 from baseline of 16. Hemoglobin 12.9 and a platelet count is at 200. Electrolytes are all stable with a sodium level of 140 with a potassium level of 4.1, bicarb of 24, BUN is at 18 with a creatinine of 0.8. Procalcitonin level is at 0.53. Legionella urine antigen was negative. Viral 4 Plex has also been negative. The patient was seen by cardiology. Echocardiogram was done on 02/29/2024 indicating a mildly impaired LV function with an ejection fraction of 45 to 50%. There is mild global LV function reduction and the patient has moderate degree of pulm hypertension with a PA pressure of 44. The patient remains in atrial fibrillation. The patient remains on anticoagulation and she is on Eliquis 5 mg p.o. twice a day. Cardiac catheterization from before had shown no coronary artery disease and the most recent cardiac stress test on 02/01/2023 shows no evidence of any reversible ischemia. The patient is being scheduled for a cardioversion by cardiology in a.m. She will be kept n.p.o. after midnight. Metoprolol dose has been increased 1250 mg twice a day. On 03/02/2024, the patient is being seen for a follow-up. The patient is currently being treated for an acute asthma exacerbation and possible pneumonia. She also had chronic atrial fibrillation. The plan is for cardioversion to be done this morning at 10 AM. No chest pain. She remains in atrial fibrillation. Hemodynamically stable. Treatment remains unchanged. She is n.p.o. in regards to upcoming cardioversion. Electrolytes are all within normal limits. BUN is 23 with a creatinine of 0.8. The patient remains on Symbicort, DuoNeb updrafts, IV Solu-Medrol, Lasix 20 mg IV every 12 hours. IV fluids are currently at KVO. She remains on IV Rocephin. Sputum culture has been negative. On 03/03/2024, the patient is being seen for a follow-up. She remains on room air oxygen. Remains bronchospastic and wheezy and her asthma remains active. Pneumonia was also suspected and a follow-up chest x-ray was done today and it showed similar bibasilar patchy interstitial opacities. Meanwhile, the patient is still on a combination of bronchodilators and steroids. The patient is on DuoNeb nebulized treatments [id number], she is on Symbicort as maintenance and IV Solu-Medrol 60 mg every 6 hours. IV fluids are currently at KVO. The patient underwent cardioversion yesterday and this was successful and the patient is back to normal sinus rhythm. She remains on metoprolol 50 mg p.o. twice daily. She is also on anticoagulation with Eliquis. Meanwhile, her blood work shows a white cell count of 8.5 from 03/01/2024. Electrolytes from yesterday were all within normal limits. Legionella urine antigen was negative. The patient's procalcitonin level was 0.53. Objective - Vital Signs Vital signs: Vital Signs Temp 97.5 F L 03/03/24 08:00 Pulse 58 L 03/03/24 09:22 Resp 18 03/03/24 08:00 BP 135/77 03/03/24 08:00 Pulse Ox 97 03/03/24 08:00 FiO2 Intake & Output 03/02/24 03/03/24 03/03/24 18:59 06:59 18:59 Intake Total 240 1080 118 Balance 240 1080 118 Weight 79.6 kg Intake: IV 0 Oral 240 1080 118 Other: Voiding Method Toilet Toilet Toilet # Voids 1 1 - Exam The patient appeared well nourished and normally developed. Vital signs as documented. Currently the patient on room air oxygen. Head exam is unremarkable. No scleral icterus or corneal arcus noted. Neck is without jugular venous distension, thyromegaly, or carotid bruits. Carotid upstrokes are brisk bilaterally. Lungs diminished breath sounds along with scattered rhonchi and wheezes are throughout the lung davila bilaterally Cardiac exam reveals the PMI to be normally sized and situated. Rhythm is irregular consistent with atrial fibrillation with a controlled rate. First and second heart sounds normal. No murmurs, rubs or gallops. Abdominal exam reveals normal bowel sounds, no masses, no organomegaly and no aortic enlargement. Extremities are nonedematous and both femoral and pedal pulses are normal. Examination of the skin revealed no evidence of significant rashes, suspicious appearing nevi or other concerning lesions. Neurologically, the patient is awake and alert and the patient does not have any focal neurological deficit. Cranial nerves are essentially intact. - Labs CBC & Chem 7: 03/01/24 04:47 03/02/24 03:37 Labs: Microbiology - Last 24 Hours (Table) 02/28/24 12:27 Blood Culture - Preliminary Blood 02/29/24 02:00 Gram Stain - Final Sputum Sputum Culture - Final Assessment and Plan Plan: Acute exacerbation of chronic severe persistent bronchial asthma. There are new infiltrates of the lung bases bilaterally compared to earlier chest x-rays. Procalcitonin level is mildly elevated and the patient has developed some mild leukocytosis. Rule out bibasilar pneumonia. Rule out a component of mild CHF as the patient is known to have mild impairment of LV function with an ejection fraction of 40 to 45% and mildly elevated proBNP level. The procalcitonin level is at 0.5. Pneumonia cannot be completely ruled out. Acute on chronic shortness of breath secondary to above, improving CHF with mild impairment of the LV function with an ejection fraction of 40 to 45% mild to moderate mitral regurgitation and moderate degree of pulm hyper tension Chronic allergic rhinitis/chronic sinus disease History of severe persistent bronchial asthma maintained on a combination of Trelegy Ellipta, Spiriva, theophylline and Singulair on outpatient basis History of adenocarcinoma of the ascending colon status post colectomy followed by further treatment and the patient's disease has been in remission Incisional hernia, surgically repaired Osteoarthritis of the knee with previous left knee replacement in 2017 Chronic atrial fibrillation, patient is status post cardioversion and cardiac rhythm is sinus. The patient is on metoprolol and Eliquis Acute leukocytosis, improving and the white cell count is dropped down to 8 Plan Continues to be bronchospastic and wheezy Follow-up chest x-ray shows limited infiltration of the lung base bilaterally Remains on room air oxygen Continue DuoNeb the regiment [id number] Continue Symbicort. IV Solu-Medrol 60 mg every 6 hours IV Rocephin was given. Patient is currently off antibiotics. Suggest completing the antibiotic course and the patient will be given Levaquin 750 mg for the next 5 days orally. Viral 4 Plex has been negative Legionella urine antigen is negative Procalcitonin level is at 0.5 White cell count is improving Lasix 20 mg IV every 12 hours Continue Singulair Hold theophylline based on her history of chronic a fib Cut down IV fluids to KVO Mucinex for cough and congestion Metoprolol dose was modified to 100 mg twice a day Continue anticoagulation with Xarelto Cardioversion was completed and the patient's cardiac rhythm is sinus Will continue to follow
[2024-03-03] MEDS: LEVOFLOXACIN 750 MG TAB PO SCH (16:23)
[2024-03-04 07:02] LABS: Basophils % (A) 0 %; Eosinophils % (A) 0 %; HCT 36.3 % (34.0-46.0); HGB 12.7 gm/dL (11.4-16.0); Lymphocytes # (A) 0.5 k/uL (1.0-4.8); Lymphocytes % (A) 8 %; MCH 32.3 pg (25.0-35.0); MCHC 34.9 g/dL (31.0-37.0); MCV 92.5 fL (80.0-100.0); Mean Platelet Volume 7.6; Monocytes # (A) 0.4 k/uL (0-1.0); Monocytes % (A) 6 %; Neutrophils # (A) 5.5 k/uL (1.3-7.7); Neutrophils % (A) 86 %; Platelet Count 250 k/uL (150-450); RBC 3.93 m/uL (3.80-5.40); RDW 13.7 % (11.5-15.5); WBC 6.5 k/uL (3.8-10.6)
[2024-03-04 07:22] LABS: African American GFR (CKD) 79 (>60 ml/min/1.73 sqM); Anion Gap 7 mmol/L; Blood Urea Nitrogen 35 mg/dL (7-17); Calcium 7.7 mg/dL (8.4-10.2); Carbon Dioxide 31 mmol/L (22-30); Chloride 93 mmol/L (98-107); Glucose 119 mg/dL (74-99); Magnesium 2.2 mg/dL (1.6-2.3); Non-African American GFR(CKD) 69 (>60 ml/min/1.73 sqM); Potassium 3.3 mmol/L (3.5-5.1); Sodium 131 mmol/L (137-145)
--- NOTE | 2024-03-04 12:27 | P.PN ---
Subjective Progress Note Date: 03/04/24 83-year-old female patient with severe persistent bronchial asthma who came into the emergency department with worsening shortness of breath and weakness. The patient developed a dose of symptoms few days back and her condition progressively got worse. She also was experiencing some discomfort and soreness in her chest upon deep breathing and at the same time the patient was actively bronchospastic and wheezy. The patient also reported some periumbilical discomfort, dull stomachache and some limited nausea, no emesis. No dysuria frequency or urgency. No fever. Based on those symptoms, the patient presented to the emergency department. The white cell count was at 16.3 with a hemoglobin 12.4 and a platelet count of 184. Electrolytes were all within normal limits. BUN was 11 with a creatinine of 0.7. The patient's troponins were negative, proBNP level was 1770 and procalcitonin level was at 0.53. I reviewed the chest x-ray and there is some increased interstitial markings and some limited infiltration of the lung bases bilaterally. Echocardiogram was done this morning and it showed mild impairment of the LV function with an estimated ejection fraction of 45 to 50%. The patient has mild to moderate mitral regurgitation, mild to moderate tricuspid regurgitation and moderate degree of pulm hypertension with a right ventricular systolic pressure of around 44 mmHg. Based on that, a pulmonary consultation was requested. Noted the patient has history of chronic atrial fibrillation. EKG was done in the emergency department was consistent with a febrile, controlled rate. She is also known to have history of hypertension, hyperlipidemia and previous history of colon cancer In terms of her bronchial asthma, this patient has history of severe persistent bronchial asthma and she has been treated through our office that she has required on and off prednisone taper to optimize her asthmatic exacerbations. Based on my records, and based on her most recent office visits, her peak flow was 390 whereas her best peak flow was around 450. She remains on a combination of Trelegy Ellipta 1 puff a day, Singulair 10 mg p.o. daily, theophylline and she is also on Tezspire injections. She continues to receive Flonase for symptoms of allergic rhinitis. Noted her serum eosinophil count was low on previous evaluations. She does have chronic sinus disease/allergic rhinitis. She suffers from osteoarthritis. She is also known to have hypertension, hyperlipidemia and previous history of colon cancer. The patient has undergone previous colectomy and her colon cancer has been in remission. Subsequently she developed an incisional hernia that required surgical repair and this was done without any complications. 03/01/2024, patient is feeling slightly improved compared to yesterday. Continues to be bronchospastic and wheezy and congested although somewhat improved. She remains on IV Rocephin and Zithromax. She remains on Lasix 20 mg IV push every 12 hours. She is producing excellent urine output and the patient seems to be in the negative fluid balance. The white cell count is improved and currently down to 8.5 from baseline of 16. Hemoglobin 12.9 and a platelet count is at 200. Electrolytes are all stable with a sodium level of 140 with a potassium level of 4.1, bicarb of 24, BUN is at 18 with a creatinine of 0.8. Procalcitonin level is at 0.53. Legionella urine antigen was negative. Viral 4 Plex has also been negative. The patient was seen by cardiology. Echocardiogram was done on 02/29/2024 indicating a mildly impaired LV function with an ejection fraction of 45 to 50%. There is mild global LV function reduction and the patient has moderate degree of pulm hypertension with a PA pressure of 44. The patient remains in atrial fibrillation. The patient remains on anticoagulation and she is on Eliquis 5 mg p.o. twice a day. Cardiac catheterization from before had shown no coronary artery disease and the most recent cardiac stress test on 02/01/2023 shows no evidence of any reversible ischemia. The patient is being scheduled for a cardioversion by cardiology in a.m. She will be kept n.p.o. after midnight. Metoprolol dose has been increased 1250 mg twice a day. On 03/02/2024, the patient is being seen for a follow-up. The patient is currently being treated for an acute asthma exacerbation and possible pneumonia. She also had chronic atrial fibrillation. The plan is for cardioversion to be done this morning at 10 AM. No chest pain. She remains in atrial fibrillation. Hemodynamically stable. Treatment remains unchanged. She is n.p.o. in regards to upcoming cardioversion. Electrolytes are all within normal limits. BUN is 23 with a creatinine of 0.8. The patient remains on Symbicort, DuoNeb updrafts, IV Solu-Medrol, Lasix 20 mg IV every 12 hours. IV fluids are currently at KVO. She remains on IV Rocephin. Sputum culture has been negative. On 03/03/2024, the patient is being seen for a follow-up. She remains on room air oxygen. Remains bronchospastic and wheezy and her asthma remains active. Pneumonia was also suspected and a follow-up chest x-ray was done today and it showed similar bibasilar patchy interstitial opacities. Meanwhile, the patient is still on a combination of bronchodilators and steroids. The patient is on DuoNeb nebulized treatments [id number], she is on Symbicort as maintenance and IV Solu-Medrol 60 mg every 6 hours. IV fluids are currently at KVO. The patient underwent cardioversion yesterday and this was successful and the patient is back to normal sinus rhythm. She remains on metoprolol 50 mg p.o. twice daily. She is also on anticoagulation with Eliquis. Meanwhile, her blood work shows a white cell count of 8.5 from 03/01/2024. Electrolytes from yesterday were all within normal limits. Legionella urine antigen was negative. The patient's procalcitonin level was 0.53. 03/04/2024, the patient is feeling better. She remains in normal sinus rhythm. No fever. No chills. No night sweats. She remains on DuoNeb. She remains on Symbicort. She remains on IV Solu-Medrol 60 mg every 6 hours and she is also on empiric antibiotic coverage with Levaquin 750 mg p.o. daily. She remains on anticoagulation with Eliquis. White cell count is dropped down to 6.5 with a hemoglobin 12.7 and platelet count of 250. BUN 35 with a creatinine of 0.8. Sodium levels at 131. Potassium levels at 3.3. She remains on room air oxygen. Objective - Vital Signs Vital signs: Vital Signs Temp 97.7 F 03/03/24 20:00 Pulse 60 03/04/24 08:04 Resp 16 03/04/24 04:00 BP 136/70 03/04/24 04:00 Pulse Ox 94 L 03/04/24 04:00 FiO2 Intake & Output 03/03/24 03/04/24 03/04/24 18:59 06:59 18:59 Intake Total 598 580 240 Balance 598 580 240 Weight 79.8 kg Intake: Oral 598 580 240 Other: Voiding Method Toilet Toilet # Voids 3 1 - Labs CBC & Chem 7: 03/04/24 06:17 03/04/24 06:17 Labs: Abnormal Lab Results - Last 24 Hours (Table) 03/04/24 03/04/24 Range/Units 06:17 06:17 Lymphocytes # 0.5 L (1.0-4.8) k/uL Sodium 131 L (137-145) mmol/L Potassium 3.3 L (3.5-5.1) mmol/L Chloride 93 L (98-107) mmol/L Carbon Dioxide 31 H (22-30) mmol/L BUN 35 H (7-17) mg/dL Glucose 119 H (74-99) mg/dL Calcium 7.7 L (8.4-10.2) mg/dL Assessment and Plan Plan: Acute exacerbation of chronic severe persistent bronchial asthma. There are new infiltrates of the lung bases bilaterally compared to earlier chest x-rays. Procalcitonin level is mildly elevated and the patient has developed some mild leukocytosis. Rule out bibasilar pneumonia. Rule out a component of mild CHF as the patient is known to have mild impairment of LV function with an ejection fraction of 40 to 45% and mildly elevated proBNP level. The procalcitonin level is at 0.5. Pneumonia cannot be completely ruled out. Acute on chronic shortness of breath secondary to above, improving CHF with mild impairment of the LV function with an ejection fraction of 40 to 45% mild to moderate mitral regurgitation and moderate degree of pulm hypertension Chronic allergic rhinitis/chronic sinus disease History of severe persistent bronchial asthma maintained on a combination of Trelegy Ellipta, Spiriva, theophylline and Singulair on outpatient basis History of adenocarcinoma of the ascending colon status post colectomy followed by further treatment and the patient's disease has been in remission Incisional hernia, surgically repaired Osteoarthritis of the knee with previous left knee replacement in 2017 Chronic atrial fibrillation, patient is status post cardioversion and cardiac rhythm is sinus. The patient is on metoprolol and Eliquis Acute leukocytosis, improving and the white cell count is dropped down to 8 Plan Clinically improving The patient is less bronchospastic and wheezy Follow-up chest x-ray shows limited infiltration of the lung base bilaterally, started on Levaquin 70 mg p.o. daily for the next 5 days Remains on room air oxygen Continue DuoNeb the regiment [id number] Continue Symbicort. IV Solu-Medrol 60 mg every 6 hours to be tapered to oral prednisone as of gus orrow Viral 4 Plex has been negative Legionella urine antigen is negative Procalcitonin level is at 0.5 White cell count is improving Lasix 20 mg IV every 12 hours Continue Singulair Hold theophylline based on her history of chronic a fib Cut down IV fluids to KVO Mucinex for cough and congestion Metoprolol dose was modified to 100 mg twice a day Continue anticoagulation with Xarelto Cardioversion was completed and the patient's cardiac rhythm is sinus Repeat chest x-ray in the morning Will continue to follow
--- NOTE | 2024-03-04 15:42 | P.PN ---
Subjective Progress Note Date: 03/04/24 History of present illness: This is an 83-year-old female patient of Dr. Bennett with past medical history of paroxysmal atrial fibrillation on Eliquis, hypertension, hyperlipidemia, bronchial asthma under the care of Dr. Hawkins. We have been asked to evaluate the patient for newly reduced EF, mild CHF exacerbation. Patient had a recent hospitalization in mid January at which time she was seen by cardiology for paroxysmal atrial fibrillation with RVR and was eventually rate controlled with increase in beta-mali. Chest pain was present as well which was thought to be muscular skeletal. Patient was discharged home on February 03. She had a follow-up with Dr. Bennett and started on amiodarone with plan for recheck on February 27. If patient remained in atrial fibrillation, electrocardioversion would be done or otherwise consider stress testing. Patient states that on Wednesday she was not feeling very well and was very cold could not seem to get warm all day and actually went to bed with her close on. In the morning she again felt cold and subsequently developed abdominal pain and felt she had food poisoning. She also complained of cough. She had vomiting at least 1 episode. No blood in her stools of vomit or stool. She does states she had lightheadedness and dizziness and shortness of breath. She denies having any chest pain. She denies any recent or frequent history of UTIs. Patient was admitted to the hospital and treated for acute exacerbation of bronchial asthma with possible basilar pneumonia. Patient has maintained in atrial fibrillation and discussed option of cardioversion which we will plan for tomorrow. Heart rate 64541, blood pressure 131/80, pulse ox 91 to 96% on room air. -EKG: Atrial fibrillation at 93 bpm -Chest x-ray: Borderline cardiomegaly with diffuse interstitial densities. Focal opacity posterior base on the lateral view, possible trace left effusion. Patchy pulmonary edema versus pneumonia. -Laboratory studies: Initial WBC 18.9 now 8.5, hemoglobin 12.9 BUN 18 creatinine 0.8, potassium 4.1, procalcitonin 0.53. Influenza A, influenza B, RSV, COVID-19 not detected. Legionella antigen negative -Home cardiac medications: Amiodarone 200 mg twice daily, eliquis 5 mg twice daily, losartan 50 mg daily, magnesium 800 mg at bedtime, metoprolol tartrate 50 mg in the morning and 25 mg in the evening, omega-3. -Cardiac catheterization 2001 revealed no obstructive CAD -Echocardiogram on this admission revealed EF of 45 to 50%, mild LVH, RVSP 44 mmHg, mild to moderate MR, mild to moderate TR. -Echocardiogram performed in the office on 02/14/2024 revealed EF of 45%, mild to moderate mitral and mild tricuspid regurgitation, no pulmonary hypertension. -Lexiscan Cardiolite stress test performed 02/01/2023 revealed EF of 60%, fixed defect of the anterior wall secondary to soft tissue attenuation. No reversible ischemia. 03/02/2024 Patient seen and examined. She is scheduled for cardioversion today at 10 AM. Patient denies having chest pain, no palpitations. She remains in atrial fibrillation this morning. Blood pressure 133/79, heart rate 62, pulse ox 91% on room air. 03/03/2024 She is doing well status post KIMMY cardioversion yesterday with Dr. Murcia. She remains in sinus bradycardia. She does feel better with improvement of shortness of breath. No chest pain. 03/04/2024 Patient reports that she has been doing okay heart leone. She is feeling anxious about her home situation. Physical examination: Gen: This is an 83-year-old female in no acute distress VS: reviewed HEENT: Head is atraumatic, normocephalic. Pupils equal, round. Sclerae is anicteric. NECK: Supple. No JVD. LUNGS: Diminished breath sounds with scattered wheeze. No intercostal retractions. HEART: Regular rhythm, bradycardia. Systolic ejection murmur. ABDOMEN: Soft No tenderness. EXTREMITIES: No pedal edema. No calf tenderness. NEUROLOGICAL: Patient is awake, alert and oriented x3. 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 daily and Lasix 40 mg daily at discharge. Okay to discharge home from cardiology standpoint. Follow-up in office with Dr. Bennett in approximately 1 week. Nurse practitioner note has been reviewed, I agree with documented findings and plan of care. Patient was seen and examined. Objective - Vital Signs Vital signs: Vital Signs Temp 98.7 F 03/04/24 11:15 Pulse 60 03/04/24 15:26 Resp 16 03/04/24 11:15 BP 151/81 03/04/24 11:15 Pulse Ox 93 L 03/04/24 11:15 FiO2 Intake & Output 03/03/24 03/04/24 03/04/24 18:59 06:59 18:59 Intake Total 598 580 480 Balance 598 580 480 Weight 79.8 kg Intake: Oral 598 580 480 Other: Voiding Method Toilet Toilet Toilet # Voids 3 1 - Labs CBC & Chem 7: 03/04/24 06:17 03/04/24 06:17 Labs: Abnormal Lab Results - Last 24 Hours (Table) 03/04/24 03/04/24 Range/Units 06:17 06:17 Lymphocytes # 0.5 L (1.0-4.8) k/uL Sodium 131 L (137-145) mmol/L Potassium 3.3 L (3.5-5.1) mmol/L Chloride 93 L (98-107) mmol/L Carbon Dioxide 31 H (22-30) mmol/L BUN 35 H (7-17) mg/dL Glucose 119 H (74-99) mg/dL Calcium 7.7 L (8.4-10.2) mg/dL
--- NOTE | 2024-03-04 16:48 | P.PN ---
Subjective Progress Note Date: 03/04/24 (delayed charting seen at approx 12:15) 83 year old with AFib, HTN, Asthma, Depression currently hospitalized for acute exacerbation of asthma and community-acquired pneumonia. Patient seen and examined at bedside. Planing of crackles in her lungs but states they have been there since 1999. They are at her baseline. States her heart feels better after cardioversion. Lives alone. Vital signs reviewed General: Nontoxic, no distress, appears at stated age Cardiovascular: S1S2 reg, no murmur Lungs: Forced expiratory wheeze, no rhonchi, no rales, no accessory muscle use Abdominal: Soft, nontender to palpation, no guarding Ext: No gross muscle atrophy, no edema b/l lower extremities, no contractures Neuro: CN II-XI grossly intact, no focal neuro deficits Psych: Alert, oriented, appropriate affect Assessment/Plan: Acute asthma exacerbation Community-acquired pneumonia Leukocytosis, possibly reactive and steroid-induced, resolved - DuoNebs 4 times daily as needed Atrovent 4 times daily scheduled, Symbicort twice daily scheduled - decreased IV Solu-Medrol to 60 every 12 hours -Completed 5 days of IV ceftriaxone and 3 days of azithromycin 500 mg daily, Started on levauqin 750 mg for 3 days by pulm on 03/03/24 -Pulmonology note reviewed Paroxysmal atrial fibrillation s/p cardioversion on 03/02 Mild systolic CHF exacerbation, EF 45 to 50%, reduced compared to prior -HFrEF likely in the setting of atrial fibrillation - eliquis 5 mg BID, Metoprolol 50 mg BID -Cardiology note reviewed,, amiodarone 200 mg daily and Lasix 40 mg daily at discharge. Okay to discharge home from cardiology standpoint. -Change lasix to 40 mg PO daily -Continue telemetry Asymptomatic bacteriuria -Continue to monitor Chronic: History of adenocarcinoma of ascending colon status post colectomy Hypertension Chronic allergic rhinitis Chronic A-fib on Eliquis Imaging: None new Data Review: Labs reveiwed from today are remarkable for sodium 131, K+ 3.3, BUN 31, and Cr 0.8 DVT ppx: Eliquis Code status: Full code Anticipated discharge place: Home Anticipated discharge time: in AM This dictation was prepared using [employer] voice recognition software. Though every attempt is made to correct errors during dictation some may still exist. Objective - Vital Signs Vital signs: Vital Signs Temp 98.7 F 03/04/24 11:15 Pulse 60 03/04/24 15:26 Resp 16 03/04/24 11:15 BP 151/81 03/04/24 11:15 Pulse Ox 93 L 03/04/24 11:15 FiO2 Intake & Output 03/03/24 03/04/24 03/04/24 18:59 06:59 18:59 Intake Total 598 580 480 Balance 598 580 480 Weight 79.8 kg Intake: Oral 598 580 480 Other: Voiding Method Toilet Toilet Toilet # Voids 3 1 - Labs CBC & Chem 7: 03/04/24 06:17 03/04/24 06:17 Labs: Abnormal Lab Results - Last 24 Hours (Table) 03/04/24 03/04/24 Range/Units 06:17 06:17 Lymphocytes # 0.5 L (1.0-4.8) k/uL Sodium 131 L (137-145) mmol/L Potassium 3.3 L (3.5-5.1) mmol/L Chloride 93 L (98-107) mmol/L Carbon Dioxide 31 H (22-30) mmol/L BUN 35 H (7-17) mg/dL Glucose 119 H (74-99) mg/dL Calcium 7.7 L (8.4-10.2) mg/dL
[2024-03-04] MEDS: methylPREDNISolone SOD SUCCI 125 MG/2 ML VIAL IV SCH (20:00)
[2024-03-04] MEDS: MELATONIN 3 MG TABLET PO PRN (23:42)
[2024-03-05] MEDS: FUROSEMIDE 40 MG TAB PO SCH (08:47)
--- NOTE | 2024-03-05 10:20 | XR ---
EXAMINATION TYPE: XR chest 1V DATE OF EXAM: 03/05/2024 6:50 AM COMPARISON: 03/03/2024 CLINICAL INDICATION: Female, 83 years old with history of pneumonia, TECHNIQUE: XR chest 1V view(s) obtained. FINDINGS: The heart size is normal. The pulmonary vasculature is normal. Mild scattered infiltrate is present. IMPRESSION: 1. Mild scattered stable infiltrates [facility], , 03/05/2024 10:18 AM
--- NOTE | 2024-03-05 12:09 | P.PN ---
Subjective Progress Note Date: 03/05/24 Pt is doing well, now on room air. Cleared by cardiology. Cleared by pulmonology. Pt does not feel comfortable going home today, is agreeable to discharge tomorrow AM. Gen: In NAD, non-toxic HEENT: normocephalic, atraumatic, hearing acuity is intant, mucous membranes moist CVS: perfusing all extremities well, no pitting edema, Respiratory: symmetric chest expansion, no accessory muscle use, GI: soft, NTTP, ND, : no suprapubic tenderness, no CVA tenderness MSK/Derm: no rashes, cyanosis Neuro: CN II-XII intact, no motor weakness, Psych: cooperative, euthymic mood, judgment and insight is intact Hospital Course: 83 year old F with PMH of AFib, HTN, Asthma, Depression presents to the ED for a constellation of symptoms. He is primarily complaining of productive cough with left upper back pain and left-sided chest pain with deep inspiration. In the ED she underwent extensive evaluation. BP 122/68, HR 88, T 99.8F, RR 22, 95% on RA. CBC, Coag panel, CMP significant for WBC 18.9, Na 135. Lactic acid 1.8. BNP 1770. Trop < 0.012. Amylase 42. Lipase 35. COVID, RSV, Flu neg. EKG A-Flutter with rate of 93. CXR cardiomegaly with diffuse interstitial densities, focal opacity posterior base with possible trace left effusion. Patient was started on Rocephin and Azithromycin and admitted for further workup and management. Pulmonology also consulted. Echocardiogram showed LVEF 45 to 50%, moderate pulmonary hypertension. Cardiology also consulted for newly reduced EF, likely in the setting of atrial fibrillation. Patient to underwent cardioversion on 03/02. Assessment and Plan: Active: Acute asthma exacerbation Community-acquired pneumonia Leukocytosis, possibly reactive and steroid-induced, resolved -On DuoNebs 4 times daily as needed Atrovent 4 times daily scheduled, Symbicort twice daily scheduled, IV Solu-Medrol 60 every 6 hours -Completed 5 days of IV ceftriaxone 1 g every 24 hours, and status post oral azithromycin 500 mg daily -started on levofloxacin 750mg for 3 days per pulmonology due to ongoing insterstitial infiltrates on CXR. -On room air -Pulmonology following Paroxysmal atrial fibrillation Mild systolic CHF exacerbation, EF 45 to 50%, reduced compared to prior -HFrEF likely in the setting of atrial fibrillation -Pending cardioversion today -Cardiology note reviewed,, continue metoprolol 50 twice daily, Eliquis 5 twice daily, amiodarone 200 twice daily -Continue Lasix IV 20 mg every 12 hours, monitor electrolytes -Continue telemetry Asymptomatic bacteriuria -Continue to monitor Chronic: History of adenocarcinoma of ascending colon status post colectomy Hypertension Chronic allergic rhinitis Chronic A-fib on Eliquis DVT ppx: Eliquis Code status: Full code Anticipated discharge place: Home Anticipated discharge time: Possibly tomorrow Objective - Vital Signs Vital signs: Vital Signs Temp 98.0 F 03/05/24 08:00 Pulse 44 L 03/05/24 11:51 Resp 16 03/05/24 11:51 BP 139/72 03/05/24 11:51 Pulse Ox 92 L 03/05/24 11:51 FiO2 Intake & Output 03/04/24 03/05/24 03/05/24 18:59 06:59 18:59 Intake Total 702 540 240 Balance 702 540 240 Weight 80.1 kg Intake: Oral 702 540 240 Other: Voiding Method Toilet Toilet Toilet # Voids 2 1 1 - Labs CBC & Chem 7: 03/04/24 06:17 03/04/24 06:17 Labs: Microbiology - Last 24 Hours (Table) 02/28/24 12:27 Blood Culture - Final Blood
--- NOTE | 2024-03-05 12:09 | P.PN ---
Subjective Progress Note Date: 03/05/24 History of present illness: This is an 83-year-old female patient of Dr. Bennett with past medical history of paroxysmal atrial fibrillation on Eliquis, hypertension, hyperlipidemia, bronchial asthma under the care of Dr. Hawkins. We have been asked to evaluate the patient for newly reduced EF, mild CHF exacerbation. Patient had a recent hospitalization in mid January at which time she was seen by cardiology for paroxysmal atrial fibrillation with RVR and was eventually rate controlled with increase in beta-mali. Chest pain was present as well which was thought to be muscular skeletal. Patient was discharged home on February 03. She had a follow-up with Dr. Bennett and started on amiodarone with plan for recheck on February 27. If patient remained in atrial fibrillation, electrocardioversion would be done or otherwise consider stress testing. Patient states that on Wednesday she was not feeling very well and was very cold could not seem to get warm all day and actually went to bed with her close on. In the morning she again felt cold and subsequently developed abdominal pain and felt she had food poisoning. She also complained of cough. She had vomiting at least 1 episode. No blood in her stools of vomit or stool. She does states she had lightheadedness and dizziness and shortness of breath. She denies having any chest pain. She denies any recent or frequent history of UTIs. Patient was admitted to the hospital and treated for acute exacerbation of bronchial asthma with possible basilar pneumonia. Patient has maintained in atrial fibrillation and discussed option of cardioversion which we will plan for tomorrow. Heart rate 87244, blood pressure 131/80, pulse ox 91 to 96% on room air. -EKG: Atrial fibrillation at 93 bpm -Chest x-ray: Borderline cardiomegaly with diffuse interstitial densities. Focal opacity posterior base on the lateral view, possible trace left effusion. Patchy pulmonary edema versus pneumonia. -Laboratory studies: Initial WBC 18.9 now 8.5, hemoglobin 12.9 BUN 18 creatinine 0.8, potassium 4.1, procalcitonin 0.53. Influenza A, influenza B, RSV, COVID-19 not detected. Legionella antigen negative -Home cardiac medications: Amiodarone 200 mg twice daily, eliquis 5 mg twice daily, losartan 50 mg daily, magnesium 800 mg at bedtime, metoprolol tartrate 50 mg in the morning and 25 mg in the evening, omega-3. -Cardiac catheterization 2001 revealed no obstructive CAD -Echocardiogram on this admission revealed EF of 45 to 50%, mild LVH, RVSP 44 mmHg, mild to moderate MR, mild to moderate TR. -Echocardiogram performed in the office on 02/14/2024 revealed EF of 45%, mild to moderate mitral and mild tricuspid regurgitation, no pulmonary hypertension. -Lexiscan Cardiolite stress test performed 02/01/2023 revealed EF of 60%, fixed defect of the anterior wall secondary to soft tissue attenuation. No reversible ischemia. 03/02/2024 Patient seen and examined. She is scheduled for cardioversion today at 10 AM. Patient denies having chest pain, no palpitations. She remains in atrial fibrillation this morning. Blood pressure 133/79, heart rate 62, pulse ox 91% on room air. 03/03/2024 She is doing well status post KIMMY cardioversion yesterday with Dr. Murcia. She remains in sinus bradycardia. She does feel better with improvement of shortness of breath. No chest pain. 03/04/2024 Patient reports that she has been doing okay heart [place]. She is feeling anxious about her home situation. 03/05/2024 Nurse reports patient heart rates have been in the 40s. She does admit to fee ling "woozy "when she got up. Denies any chest pain or pressure. No shortness of breath. Physical examination: Gen: This is an 83-year-old female in no acute distress VS: reviewed HEENT: Head is atraumatic, normocephalic. Pupils equal, round. Sclerae is anicteric. NECK: Supple. No JVD. LUNGS: Diminished breath sounds with scattered wheeze. No intercostal retractions. HEART: Regular rhythm, bradycardia. Systolic ejection murmur. ABDOMEN: Soft No tenderness. EXTREMITIES: No pedal edema. No calf tenderness. NEUROLOGICAL: Patient is awake, alert and oriented x3. Assessment: Paroxysmal atrial fibrillation Acute exacerbation of bronchial asthma with possible basilar pneumonia Cardiomyopathy with EF of 45%, possibly A-fib induced Hypertension Dyslipidemia Bronchial asthma Bradycardia Plan: She is having sinus bradycardia with some dizziness, will stop metoprolol at this time. Recommend amiodarone 200 mg p.o. daily and Lasix 40 mg daily at discharge. She is anticipating discharge home tomorrow. Follow-up in office with Dr. Bennett in approximately 1 week. Nurse practitioner note has been reviewed by Dr. Ann, I agree with documented findings and plan of care. Patient was seen and examined. Objective - Vital Signs Vital signs: Vital Signs Temp 98.0 F 03/05/24 08:00 Pulse 44 L 03/05/24 11:51 Resp 16 03/05/24 11:51 BP 139/72 03/05/24 11:51 Pulse Ox 92 L 03/05/24 11:51 FiO2 Intake & Output 03/04/24 03/05/24 03/05/24 18:59 06:59 18:59 Intake Total 702 540 240 Balance 702 540 240 Weight 80.1 kg Intake: Oral 702 540 240 Other: Voiding Method Toilet Toilet Toilet # Voids 2 1 1 - Labs CBC & Chem 7: 03/04/24 06:17 03/04/24 06:17 Labs: Microbiology - Last 24 Hours (Table) 02/28/24 12:27 Blood Culture - Final Blood
--- NOTE | 2024-03-05 12:47 | P.PN ---
Subjective Progress Note Date: 03/05/24 83-year-old female patient with severe persistent bronchial asthma who came into the emergency department with worsening shortness of breath and weakness. The patient developed a dose of symptoms few days back and her condition progressively got worse. She also was experiencing some discomfort and soreness in her chest upon deep breathing and at the same time the patient was actively bronchospastic and wheezy. The patient also reported some periumbilical discomfort, dull stomachache and some limited nausea, no emesis. No dysuria frequency or urgency. No fever. Based on those symptoms, the patient presented to the emergency department. The white cell count was at 16.3 with a hemoglobin 12.4 and a platelet count of 184. Electrolytes were all within normal limits. BUN was 11 with a creatinine of 0.7. The patient's troponins were negative, proBNP level was 1770 and procalcitonin level was at 0.53. I reviewed the chest x-ray and there is some increased interstitial markings and some limited infiltration of the lung bases bilaterally. Echocardiogram was done this morning and it showed mild impairment of the LV function with an estimated ejection fraction of 45 to 50%. The patient has mild to moderate mitral regurgitation, mild to moderate tricuspid regurgitation and moderate degree of pulm hypertension with a right ventricular systolic pressure of around 44 mmHg. Based on that, a pulmonary consultation was requested. Noted the patient has history of chronic atrial fibrillation. EKG was done in the emergency department was consistent with a febrile, controlled rate. She is also known to have history of hypertension, hyperlipidemia and previous history of colon cancer In terms of her bronchial asthma, this patient has history of severe persistent bronchial asthma and she has been treated through our office that she has required on and off prednisone taper to optimize her asthmatic exacerbations. Based on my records, and based on her most recent office visits, her peak flow was 390 whereas her best peak flow was around 450. She remains on a combination of Trelegy Ellipta 1 puff a day, Singulair 10 mg p.o. daily, theophylline and she is also on Tezspire injections. She continues to receive Flonase for symptoms of allergic rhinitis. Noted her serum eosinophil count was low on previous evaluations. She does have chronic sinus disease/allergic rhinitis. She suffers from osteoarthritis. She is also known to have hypertension, hyperlipidemia and previous history of colon cancer. The patient has undergone previous colectomy and her colon cancer has been in remission. Subsequently she developed an incisional hernia that required surgical repair and this was done without any complications. 03/01/2024, patient is feeling slightly improved compared to yesterday. Continues to be bronchospastic and wheezy and congested although somewhat improved. She remains on IV Rocephin and Zithromax. She remains on Lasix 20 mg IV push every 12 hours. She is producing excellent urine output and the patient seems to be in the negative fluid balance. The white cell count is improved and currently down to 8.5 from baseline of 16. Hemoglobin 12.9 and a platelet count is at 200. Electrolytes are all stable with a sodium level of 140 with a potassium level of 4.1, bicarb of 24, BUN is at 18 with a creatinine of 0.8. Procalcitonin level is at 0.53. Legionella urine antigen was negative. Viral 4 Plex has also been negative. The patient was seen by cardiology. Echocardiogram was done on 02/29/2024 indicating a mildly impaired LV function with an ejection fraction of 45 to 50%. There is mild global LV function reduction and the patient has moderate degree of pulm hypertension with a PA pressure of 44. The patient remains in atrial fibrillation. The patient remains on anticoagulation and she is on Eliquis 5 mg p.o. twice a day. Cardiac catheterization from before had shown no coronary artery disease and the most recent cardiac stress test on 02/01/2023 shows no evidence of any reversible ischemia. The patient is being scheduled for a cardioversion by cardiology in a.m. She will be kept n.p.o. after midnight. Metoprolol dose has been increased 1250 mg twice a day. On 03/02/2024, the patient is being seen for a follow-up. The patient is currently being treated for an acute asthma exacerbation and possible pneumonia. She also had chronic atrial fibrillation. The plan is for cardioversion to be done this morning at 10 AM. No chest pain. She remains in atrial fibrillation. Hemodynamically stable. Treatment remains unchanged. She is n.p.o. in regards to upcoming cardioversion. Electrolytes are all within normal limits. BUN is 23 with a creatinine of 0.8. The patient remains on Symbicort, DuoNeb updrafts, IV Solu-Medrol, Lasix 20 mg IV every 12 hours. IV fluids are currently at KVO. She remains on IV Rocephin. Sputum culture has been negative. On 03/03/2024, the patient is being seen for a follow-up. She remains on room air oxygen. Remains bronchospastic and wheezy and her asthma remains active. Pneumonia was also suspected and a follow-up chest x-ray was done today and it showed similar bibasilar patchy interstitial opacities. Meanwhile, the patient is still on a combination of bronchodilators and steroids. The patient is on DuoNeb nebulized treatments [id number], she is on Symbicort as maintenance and IV Solu-Medrol 60 mg every 6 hours. IV fluids are currently at KVO. The patient underwent cardioversion yesterday and this was successful and the patient is back to normal sinus rhythm. She remains on metoprolol 50 mg p.o. twice daily. She is also on anticoagulation with Eliquis. Meanwhile, her blood work shows a white cell count of 8.5 from 03/01/2024. Electrolytes from yesterday were all within normal limits. Legionella urine antigen was negative. The patient's procalcitonin level was 0.53. 03/04/2024, the patient is feeling better. She remains in normal sinus rhythm. No fever. No chills. No night sweats. She remains on DuoNeb. She remains on Symbicort. She remains on IV Solu-Medrol 60 mg every 6 hours and she is also on empiric antibiotic coverage with Levaquin 750 mg p.o. daily. She remains on anticoagulation with Eliquis. White cell count is dropped down to 6.5 with a hemoglobin 12.7 and platelet count of 250. BUN 35 with a creatinine of 0.8. Sodium levels at 131. Potassium levels at 3.3. She remains on room air oxygen. 03/05/2024, the patient is being seen for a follow-up. Progressively improving. No new complaints. She is on oral Levaquin. She remains on IV Solu-Medrol. She remains in normal sinus rhythm. Labs are stable with a white cell count of 6 and hemoglobin 12.7. Electrolytes are all within normal limits. BUN 35 with a creatinine of 0.8. The follow-up chest x-ray was done this morning and this was reviewed and the patient continues to have some limited area of scattered stable bilateral pulmonary infiltrates. She remains on room air oxygen. Objective - Vital Signs Vital signs: Vital Signs Temp 98.0 F 03/05/24 08:00 Pulse 60 03/05/24 08:38 Resp 16 03/05/24 08:00 BP 130/73 03/05/24 08:00 Pulse Ox 93 L 03/05/24 08:00 FiO2 Intake & Output 03/04/24 03/05/24 03/05/24 18:59 06:59 18:59 Intake Total 702 540 Balance 702 540 Weight 80.1 kg Intake: Oral 702 540 Other: Voiding Method Toilet Toilet Toilet # Voids 2 1 1 - Exam The patient appeared well nourished and normally developed. Vital signs as documented. Currently the patient on room air oxygen. Head exam is unremarkable. No scleral icterus or corneal arcus noted. Neck is without jugular venous distension, thyromegaly, or carotid bruits. Carotid upstrokes are brisk bilaterally. Lungs diminished breath sounds along with scattered rhonchi and wheezes are throughout the lung davila bilaterally Cardiac exam reveals the PMI to be normally sized and situated. Rhythm is irregular consistent with atrial fibrillation with a controlled rate. First and second heart sounds normal. No murmurs, rubs or gallops. Abdominal exam reveals normal bowel sounds, no masses, no organomegaly and no aortic enlargement. Extremities are nonedematous and both femoral and pedal pulses are normal. Examination of the skin revealed no evidence of significant rashes, suspicious appearing nevi or other concerning lesions. Neurologically, the patient is awake and alert and the patient does not have any focal neurological deficit. Cranial nerves are essentially intact. - Labs CBC & Chem 7: 03/04/24 06:17 03/04/24 06:17 Labs: Microbiology - Last 24 Hours (Table) 02/28/24 12:27 Blood Culture - Final Blood Assessment and Plan Plan: Acute exacerbation of chronic severe persistent bronchial asthma. There are new infiltrates of the lung bases bilaterally compared to earlier chest x-rays. Procalcitonin level is mildly elevated and the patient has developed some mild leukocytosis. Rule out bibasilar pneumonia. Rule out a component of mild CHF as the patient is known to have mild impairment of LV function with an ejection fraction of 40 to 45% and mildly elevated proBNP level. The procalcitonin level is at 0.5. Pneumonia cannot be completely ruled out. Acute on chronic shortness of breath secondary to above, improving CHF with mild impairment of the LV function with an ejection fraction of 40 to 45% mild to moderate mitral regurgitation and moderate degree of pulm hypertension Chronic allergic rhinitis/chronic sinus disease History of severe persistent bronchial asthma maintained on a combination of Trelegy Ellipta, Spiriva, theophylline and Singulair on outpatient basis History of adenocarcinoma of the ascending colon status post colectomy followed by further treatment and the patient's disease has been in remission Incisional hernia, surgically repaired Osteoarthritis of the knee with previous left knee replacement in 2017 Chronic atrial fibrillation, patient is status post cardioversion and cardiac rhythm is sinus. The patient is on metoprolol and Eliquis Acute leukocytosis, improving and the white cell count is dropped down to 8 Plan Clinically improving, clinically stable. Chest x-ray shows some stable scattered pulmonary filtrates and the patient remains on Levaquin. The patient is less bronchospastic and wheezy Complete a 5-day course of Levaquin Remains on room air oxygen Continue DuoNeb the regiment [id number] Continue Symbicort. Prednisone burst taper at time of discharge Lasix 40 mg p.o. daily Viral 4 Plex has been negative Legionella urine antigen is negative Procalcitonin level is at 0.5 White cell count is improving Continue Singulair Hold theophylline based on her history of chronic a fib Cut down IV fluids to KVO Mucinex for cough and congestion Metoprolol dose was modified to 100 mg twice a day Continue anticoagulation with Xarelto Cardioversion was completed and the patient's cardiac rhythm is sinus Discharge either today or within the next 24 hours. Case was discussed with the medical team.
[2024-03-06 08:07] VITALS: BP 147/76; RESP 18; TEMP 98.2
[2024-03-06] MEDS: PANTOPRAZOLE 40 MG TABLET PO PRN (08:16)
[2024-03-06 10:33] VITALS: BMI 31.5
[2024-03-06 11:52] VITALS: PULSE 56
--- NOTE | 2024-03-06 12:18 | P.DS ---
Providers Date of admission: 02/28/24 14:51 Expected date of discharge: 03/06/24 Attending physician: Pamela Aceves MD Consults: 02/28/24 15:32 Consult Physician Routine Consulting Provider: Sloan Cuevas Consult Reason/Comments: PNA Do you want consulting provider notified?: Yes 02/29/24 16:49 Consult Physician Routine Consulting Provider: Rico Pinto Consult Reason/Comments: newly reduced EF, mild chf exacerbation Do you want consulting provider notified?: Yes Primary care physician: [facility] Course: Acute asthma exacerbation Community-acquired pneumonia Leukocytosis, possibly reactive and steroid-induced, resolved Paroxysmal atrial fibrillation Mild systolic CHF exacerbation, EF 45 to 50%, reduced compared to prior Asymptomatic bacteriuria History of adenocarcinoma of ascending colon status post colectomy Hypertension Chronic allergic rhinitis Chronic A-fib on Eliquis Gen: In NAD, non-toxic HEENT: normocephalic, atraumatic, hearing acuity is intant, mucous membranes moist CVS: perfusing all extremities well, no pitting edema, Respiratory: symmetric chest expansion, no accessory muscle use, GI: soft, NTTP, ND, : no suprapubic tenderness, no CVA tenderness MSK/Derm: no rashes, cyanosis Neuro: CN II-XII intact, no motor weakness, Psych: cooperative, euthymic mood, judgment and insight is intact Hospital Course: 83 year old F with PMH of AFib, HTN, Asthma, Depression presents to the ED for a constellation of symptoms. He is primarily complaining of productive cough with left upper back pain and left-sided chest pain with deep inspiration. In the ED she underwent extensive evaluation. BP 122/68, HR 88, T 99.8F, RR 22, 95% on RA. CBC, Coag panel, CMP significant for WBC 18.9, Na 135. Lactic acid 1.8. BNP 1770. Trop < 0.012. Amylase 42. Lipase 35. COVID, RSV, Flu neg. EKG A-Flutter with rate of 93. CXR cardiomegaly with diffuse interstitial densities, focal opacity posterior base with possible trace left effusion. Patient was started on Rocephin and Azithromycin and admitted for further workup and management. Pulmonology also consulted. Echocardiogram showed LVEF 45 to 50%, moderate pulmonary hypertension. Cardiology also consulted for newly reduced EF, likely in the setting of atrial fibrillation. Patient to underwent cardioversion on 03/02. Patient's medications were titrated by cardiology, ultimately discharged on daily amiodarone with no metoprolol due to bradycardia. Patient was also discharged on Lasix 40 mg daily. She was provided 1 additional dose of 750 mg of levofloxacin for ongoing interstitial infiltrates on chest x-ray per pulmonology recommendations. She was also discharged on prednisone taper. She should follow-up with PCP, cardiology, pulmonology upon discharge. She was provided home care services on discharge. She was also prescribed a walker on discharge. I spent 45 minutes coordinating this discharge Patient Condition at Discharge: Good Plan - Discharge Summary Discharge Rx Participant: No New Discharge Prescriptions: New Losartan [Cozaar] 25 mg PO DAILY #30 tab predniSONE [Deltasone] See Rx Instructions .ROUTE .COMPLEX #15 tab Acetaminophen Tab [Tylenol] 650 mg PO Q6HR PRN tab PRN Reason: Mild Pain Or Fever > 100.5 Levofloxacin [Levaquin] 750 mg PO Q48H #1 tab Furosemide [Lasix] 40 mg PO DAILY #30 tab Continue Ipratropium/Albuterol Sulfate [Combivent Respimat Inhaler] 1 puff INHALATION RT-QID PRN PRN Reason: Dyspnea Ipratropium-Albuterol Nebulize [Duoneb 0.5 mg-3 mg/3 ml Soln] 3 ml INHALATION RT-QID PRN PRN Reason: Shortness Of Breath Montelukast [Singulair] 10 mg PO HS Omeprazole [PriLOSEC] 20 mg PO DAILY PRN PRN Reason: Gi Upset Citalopram Hydrobromide [Citalopram HBr] 20 mg PO DAILY Azelastine HCl [Astepro] 2 spray NASAL DAILY Levocetirizine Dihydrochloride [Xyzal] 5 mg PO DAILY Biotin [Biotin Disolve] 5,000 mcg PO DAILY Vitamin B Complex 1 cap PO DAILY Cholecalciferol [Vitamin D3 (125 Mcg = 5000 Iu)] 125 mcg PO DAILY Ascorbic Acid [Vitamin C] 1,000 mg PO DAILY Apixaban [Eliquis] 5 mg PO BID Cyanocobalamin (Vitamin B-12) [Vitamin B-12] 1,000 mcg PO DAILY Winnie-3/Dha/Epa/Fish Oil [Fish Oil 1,000 mg Softgel] 1 cap PO DAILY cycloSPORINE 0.05% OPHTH SOLN [Restasis] 1 applicator BOTH EYES BID Zinc Gluconate [Zinc] 50 mg PO BID Magnesium Oxide [Mag-Ox] 800 mg PO HS Fluticasone/Umeclidin/Vilanter [Trelegy Ellipta 200-62.5-25] 1 puff INHALATION RT-DAILY Changed Amiodarone [Cordarone] 200 mg PO DAILY #0 Discontinued Losartan Potassium 50 mg PO DAILY Metoprolol Tartrate 25 mg PO HS Metoprolol Tartrate 50 mg PO DAILY Discharge Medication List Citalopram Hydrobromide [Citalopram HBr] 20 mg PO DAILY 03/20/15 [History] Ipratropium-Albuterol Nebulize [Duoneb 0.5 mg-3 mg/3 ml Soln] 3 ml INHALATION RT-QID PRN 03/20/15 [History] Ipratropium/Albuterol Sulfate [Combivent Respimat Inhaler] 1 puff INHALATION RT- QID PRN 03/20/15 [History] Montelukast [Singulair] 10 mg PO HS 03/20/15 [History] Omeprazole [PriLOSEC] 20 mg PO DAILY PRN 03/20/15 [History] Azelastine HCl [Astepro] 2 spray NASAL DAILY 12/01/18 [History] Biotin [Biotin Disolve] 5,000 mcg PO DAILY 12/01/18 [History] Levocetirizine Dihydrochloride [Xyzal] 5 mg PO DAILY 12/01/18 [History] Apixaban [Eliquis] 5 mg PO BID 02/03/24 [History] Ascorbic Acid [Vitamin C] 1,000 mg PO DAILY 02/03/24 [History] Cholecalciferol [Vitamin D3 (125 Mcg = 5000 Iu)] 125 mcg PO DAILY 02/03/24 [History] Cyanocobalamin (Vitamin B-12) [Vitamin B-12] 1,000 mcg PO DAILY 02/03/24 [History] Magnesium Oxide [Mag-Ox] 800 mg PO HS 02/03/24 [History] Winnie-3/Dha/Epa/Fish Oil [Fish Oil 1,000 mg Softgel] 1 cap PO DAILY 02/03/24 [History] Vitamin B Complex 1 cap PO DAILY 02/03/24 [History] Zinc Gluconate [Zinc] 50 mg PO BID 02/03/24 [History] cycloSPORINE 0.05% OPHTH SOLN [Restasis] 1 applicator BOTH EYES BID 02/03/24 [History] Fluticasone/Umeclidin/Vilanter [Trelegy Ellipta 200-62.5-25] 1 puff INHALATION RT-DAILY 02/28/24 [History] Acetaminophen Tab [Tylenol] 650 mg PO Q6HR PRN tab 03/06/24 [Rx] Amiodarone [Cordarone] 200 mg PO DAILY #0 03/06/24 [Rx] Furosemide [Lasix] 40 mg PO DAILY #30 tab 03/06/24 [Rx] Levofloxacin [Levaquin] 750 mg PO Q48H #1 tab 03/06/24 [Rx] Losartan [Cozaar] 25 mg PO DAILY #30 tab 03/06/24 [Rx] predniSONE [Deltasone] See Rx Instructions .ROUTE .COMPLEX #15 tab 03/06/24 [Rx] Follow up Appointment(s)/Referral(s): Jw Murcia MD [Medical Doctor] - 1 Week Ti Stein DO [Primary Care Provider] - 1-2 days [facility], [NON-STAFF] - 1-2 Days Sloan Cuevas MD [STAFF PHYSICIAN] - 1 Week Patient Instructions/Handouts: Pneumonitis (DC) Discharge Disposition: HOME WITH HOME HEALTH SERVICES
--- NOTE | 2024-03-06 14:02 | P.PN ---
Subjective Progress Note Date: 03/06/24 Reason for Consult (text): Newly reduced EF, mild CHF exacerbation History of present illness: This is an 83-year-old female patient of Dr. Bennett with past medical history of paroxysmal atrial fibrillation on Eliquis, hypertension, hyperlipidemia, bronch ial asthma under the care of Dr. Hawkins. We have been asked to evaluate the patient for newly reduced EF, mild CHF exacerbation. Patient had a recent hospitalization in mid January at which time she was seen by cardiology for paroxysmal atrial fibrillation with RVR and was eventually rate controlled with increase in beta-mali. Chest pain was present as well which was thought to be muscular skeletal. Patient was discharged home on February 03. She had a follow-up with Dr. Bennett and started on amiodarone with plan for recheck on February 27. If patient remained in atrial fibrillation, electrocardioversion would be done or otherwise consider stress testing. Patient states that on she was not feeling very well and was very cold could not seem to get warm all day and actually went to bed with her close on. In the morning she again felt cold and subsequently developed abdominal pain and felt she had food poisoning. She also complained of cough. She had vomiting at least 1 episode. No blood in her stools of vomit or stool. She does states she had lightheadedness and dizziness and shortness of breath. She denies having any chest pain. She denies any recent or frequent history of UTIs. Patient was admitted to the hospital and treated for acute exacerbation of bronchial asthma with possible basilar pneumonia. Patient has maintained in atrial fibrillation and discussed option of cardioversion which we will plan for tomorrow. Heart rate 33611, blood pressure 131/80, pulse ox 91 to 96% on room air. -EKG: Atrial fibrillation at 93 bpm -Chest x-ray: Borderline cardiomegaly with diffuse interstitial densities. Focal opacity posterior base on the lateral view, possible trace left effusion. Patchy pulmonary edema versus pneumonia. -Laboratory studies: Initial WBC 18.9 now 8.5, hemoglobin 12.9 BUN 18 creatinine 0.8, potassium 4.1, procalcitonin 0.53. Influenza A, influenza B, RSV, COVID-19 not detected. Legionella antigen negative -Home cardiac medications: Amiodarone 200 mg twice daily, eliquis 5 mg twice daily, losartan 50 mg daily, magnesium 800 mg at bedtime, metoprolol tartrate 50 mg in the morning and 25 mg in the evening, omega-3. -Cardiac catheterization 2001 revealed no obstructive CAD -Echocardiogram on this admission revealed EF of 45 to 50%, mild LVH, RVSP 44 mmHg, mild to moderate MR, mild to moderate TR. -Echocardiogram performed in the office on 02/14/2024 revealed EF of 45%, mild to moderate mitral and mild tricuspid regurgitation, no pulmonary hypertension. -Lexiscan Cardiolite stress test performed 02/01/2023 revealed EF of 60%, fixed defect of the anterior wall secondary to soft tissue attenuation. No reversible ischemia. 03/02/2024 Patient seen and examined. She is scheduled for cardioversion today at 10 AM. Patient denies having chest pain, no palpitations. She remains in atrial fibri llation this morning. Blood pressure 133/79, heart rate 62, pulse ox 91% on room air. 03/03/2024 She is doing well status post KIMMY cardioversion yesterday with Dr. Murcia. She remains in sinus bradycardia. She does feel better with improvement of shortness of breath. No chest pain. 03/04/2024 Patient reports that she has been doing okay heart leone. She is feeling anxious about her home situation. 03/05/2024 Nurse reports patient heart rates have been in the 40s. She does admit to feeling "woozy "when she got up. Denies any chest pain or pressure. No shortness of breath. 03/06/2024 Patient seen and examined. Patient remains in sinus rhythm since she underwent cardioversion. Her beta-mali was stopped last night because her heart rate was in the 40s. Now heart rate is 56, blood pressure 147/76, pulse ox 95% on room air. Physical examination: Gen: This is an 83-year-old female in no acute distress VS: reviewed HEENT: Head is atraumatic, normocephalic. Pupils equal, round. Sclerae is anicteric. NECK: Supple. No JVD. LUNGS: Diminished breath sounds with scattered wheeze. No intercostal retractions. HEART: Regular rhythm, bradycardia. Systolic ejection murmur. ABDOMEN: Soft No tenderness. EXTREMITIES: No pedal edema. No calf tenderness. NEUROLOGICAL: Patient is awake, alert and oriented x3. 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 LAWRENCE Bennett in the office on the morning of March 16. Patient is cleared for discharge from cardiology perspective. Nurse practitioner note has been reviewed, I agree with documented findings and plan of care. Patient was seen and examined. Objective - Vital Signs Vital signs: Vital Signs Temp 98.2 F 03/06/24 08:00 Pulse 60 03/06/24 08:37 Resp 18 03/06/24 11:20 BP 147/76 03/06/24 08:00 Pulse Ox 95 03/06/24 08:00 FiO2 Intake & Output 03/05/24 03/06/24 03/06/24 18:59 06:59 18:59 Intake Total 580 Output Total 0 Balance 580 0 Weight 80.7 kg 80.7 kg Intake: Oral 580 Output: Urine 0 Other: Voiding Method Toilet Toilet # Voids 2 - Labs CBC & Chem 7: 03/04/24 06:17 03/04/24 06:17
[2024-03-07] MEDS ORDERED: AMIODARONE 200 MG TAB PO SCH (09:00)
--- NOTE | 2024-03-21 14:41 | P.EPPROC ---
- EP Procedure Note Date of Procedure: 03/02/24 Electrophysiology Procedure Note: PROCEDURE NAME: Synchronized cardioversion. Indication: Persistent atrial fibrillation with symptoms of palpitation Consent: Risks and benefits discussed with patient and consent obtained. Anesthesia: provided by Anesthesia team using propofol The appropriate time-out procedure was performed including proper identification of the patient, physician, procedure, documentation, and there were no safety issues identified. The patient participated actively in this. After sedation was achieved, the patient was placed in the supine position and hands free patches were placed on his chest in the AP position. Patient was made show to be on systemic anticoagulation. Patient reported that she has been on anticoagulation for more than 6 weeks without any interruptions. She understands the risk of not performing KIMMY to rule out intra cardiac thrombus and potential risk of stroke with cardioversion procedure. Patient agrees to proceed with cardioversion without the need for KIMMY. 1 shock was provided at, 200 Joules with successful resumption of normal sinus rhythm. This was confirmed on EKG. Repeat EKG confirms return to sinus rhythm. Complications: The patient tolerated the procedure well without complications.
== END 2024-03-06 13:59 | disposition home health service (06) | DRG 193 ==
LOC: EC 08:15 → 4SSUR 14:51 → 5NMEDONC 17:07 → 3SCARD 03-02 09:50
PROVIDERS: ADMIT Family Medicine; ATTEND Family Medicine
PROC: B246ZZ4 Ultrasonography of Right and Left Heart, Transesophageal (ICD-10-PCS; 2024-03-02)
PROC: 5A2204Z Restoration of Cardiac Rhythm, Single (ICD-10-PCS; principal; 2024-03-02 10:00)
DX: J18.9 Pneumonia, unspecified organism (principal); I50.23 Acute on chronic systolic (congestive) heart failure; I50.33 Acute on chronic diastolic (congestive) heart failure; J45.51 Severe persistent asthma with (acute) exacerbation; I48.92 Unspecified atrial flutter; I27.20 Pulmonary hypertension, unspecified; F32.A Depression, unspecified; I11.0 Hypertensive heart disease with heart failure; I08.1 Rheumatic disorders of both mitral and tricuspid valves; J44.0 Chronic obstructive pulmonary disease with (acute) lower respiratory infection; J44.1 Chronic obstructive pulmonary disease with (acute) exacerbation; J45.901 Unspecified asthma with (acute) exacerbation; I48.19 Other persistent atrial fibrillation; E78.5 Hyperlipidemia, unspecified; Z11.52 Encounter for screening for COVID-19; R00.1 Bradycardia, unspecified; Z79.01 Long term (current) use of anticoagulants; Z91.011 Allergy to milk products; Z91.018 Allergy to other foods; Z87.19 Personal history of other diseases of the digestive system; M19.90 Unspecified osteoarthritis, unspecified site; Z79.899 Other long term (current) drug therapy; Z85.038 Personal history of other malignant neoplasm of large intestine; Z85.828 Personal history of other malignant neoplasm of skin; Z86.0100 Personal history of colon polyps, unspecified; Z90.49 Acquired absence of other specified parts of digestive tract; Z90.710 Acquired absence of both cervix and uterus; Z98.49 Cataract extraction status, unspecified eye; Z96.653 Presence of artificial knee joint, bilateral; Z88.6 Allergy status to analgesic agent
CPT/HCPCS: 36415; 71045; 71046; 80048; 80053; 81001; 82150; 83605; 83690; 83735; 83880; 84145; 84484; 85025; 85610; 85730; 87040; 87070; 87205; 87449; 87636; 92960; 93005; 93306; 94640; 96361; 96365; 96366; 96375; 99285